=== PATIENT | female | born 1955 | race African-American/Black ===

== ENCOUNTER 2021-03-11 04:43 | Emergency (ER) | payer MEDICAID ==
[~2021-03-11] VITALS: Ht 167.6 cm; Wt 88.5 kg
[2021-03-11] MEDS ORDERED: SODIUM CHLORIDE 0.9% 1,000 ML IV ONE ×2 (07:15)
[2021-03-11] MEDS ORDERED: ONDANSETRON HCL 4 MG/2 ML VIAL IV ONE (07:15)
[2021-03-11 07:33] LABS: Basophils # (auto) 0.1 10 ^3/uL (0-0.2); Basophils % (auto) 1.1 % (0.0-2.0); Eosinophils # (auto) 0 10 ^3/uL (0-0.8); Eosinophils % (auto) 0.5 % (0.0-7.0); Hematocrit 44.8 % (36.0-46.0); Hemoglobin 15.3 g/dL (12.2-16.2); Lymphocytes # (auto) 1.5 10 ^3/uL (0.4-5.4); Lymphocytes % (auto) 20.6 % (10.0-50.0); Mean Corpuscular Hemoglobin 31.8 pg (28.0-32.0); Mean Corpuscular Hgb Conc. 34.1 g/dL (32.0-36.0); Mean Corpuscular Volume 93.2 fL (80.0-100.0); Monocytes # (auto) 0.5 10 ^3/uL (0-1.3); Monocytes % (auto) 6.4 % (0.0-12.0); Neutrophils # (auto) 5.2 10 ^3/uL (1.6-8.6); Neutrophils % (auto) 71.4 % (37.0-80.0); Nucleated Red Blood Cells % 0.2 %; Red Blood Cells 4.81 10^6/uL (4.0-5.20); White Blood Cell 7.3 10^3/uL (4.4-10.8)
[2021-03-11 07:48] LABS: Calcium 9.2 mg/dL (8.5-10.1); Magnesium 2.7 mg/dL (1.6-2.6); Potassium 3.3 mmol/L (3.5-5.1)
[2021-03-11 08:01] LABS: BUN/Creatinine Ratio 23.9; Bilirubin, Total 1.2 mg/dL (0.2-1.0); Total Protein 8.5 g/dL (6.4-8.2)
[2021-03-11] MEDS ORDERED: POTASSIUM EFFERVESENT TAB 25 MEQ PO ONE (10:45)
[2021-03-11 13:34] VITALS: BP 147/89
== END 2021-03-11 13:45 | disposition home or self-care (01) ==
LOC: ER 04:43
DX: K52.9 Noninfective gastroenteritis and colitis, unspecified (principal); E11.9 Type 2 diabetes mellitus without complications; I10 Essential (primary) hypertension; Z20.822 Contact with and (suspected) exposure to COVID-19
CPT/HCPCS: 36415; 71045; 74176; 80053; 83735; 83880; 84484; 85025; 87426; 93005; 96361; 96374; 99285; J2405; J7030

== ENCOUNTER 2021-07-03 02:25 | Emergency (ER) | payer OTHER ==
[~2021-07-03] VITALS: Ht 167.6 cm; Wt 96.2 kg
[2021-07-03 02:50] VITALS: BP 118/60
[2021-07-03] MEDS ORDERED: MECL25TA18 PO (02:53)
[2021-07-03 03:18] LABS: Basophils # (auto) 0 10 ^3/uL (0-0.2); Basophils % (auto) 0.6 % (0.0-2.0); Eosinophils # (auto) 0.3 10 ^3/uL (0-0.8); Eosinophils % (auto) 4.2 % (0.0-7.0); Hematocrit 39.1 % (36.0-46.0); Hemoglobin 13.5 g/dL (12.2-16.2); Lymphocytes # (auto) 2.6 10 ^3/uL (0.4-5.4); Lymphocytes % (auto) 36.5 % (10.0-50.0); Mean Corpuscular Hemoglobin 31.9 pg (28.0-32.0); Mean Corpuscular Hgb Conc. 34.4 g/dL (32.0-36.0); Mean Corpuscular Volume 92.9 fL (80.0-100.0); Monocytes # (auto) 0.7 10 ^3/uL (0-1.3); Monocytes % (auto) 10.5 % (0.0-12.0); Neutrophils # (auto) 3.4 10 ^3/uL (1.6-8.6); Neutrophils % (auto) 48.2 % (37.0-80.0); Nucleated Red Blood Cells % 0.1 %; Red Blood Cells 4.21 10^6/uL (4.0-5.20); Red Cell Distribution Width 13.6 % (11.8-14.3)
[2021-07-03 03:33] LABS: Albumin 3.4 g/dL (3.4-5.0); BUN/Creatinine Ratio 13.5; Potassium 3.6 mmol/L (3.5-5.1)
[2021-07-03 03:36] LABS: Bilirubin, Total 0.4 mg/dL (0.2-1.0); Total Protein 6.6 g/dL (6.4-8.2)
[2021-07-03] MEDS ORDERED: ALUM & MAG HYDROX-SIMETH LIQ(MAALOX) 30 ML PO ONE (04:00)
[2021-07-03] MEDS ORDERED: DONNATAL 5ml ORAL Elix (BELLADONNA ALK-PHENOBARB) PO ONE (04:00)
[2021-07-03] MEDS ORDERED: LIDOCAINE VISCOUS 2% 15ML UD PO ONE (04:00)
== END 2021-07-03 05:43 | disposition home or self-care (01) ==
LOC: ER 02:25
DX: R42 Dizziness and giddiness (principal); K21.9 Gastro-esophageal reflux disease without esophagitis; I10 Essential (primary) hypertension; E11.9 Type 2 diabetes mellitus without complications
CPT/HCPCS: 36415; 70450; 80053; 84484; 85025; 93005

== ENCOUNTER 2021-12-15 19:04 | Inpatient (IN) | payer OTHER ==
[~2021-12-15] VITALS: Ht 167.6 cm; Wt 91.4 kg
[~2021-12-15 19:04] MED LIST: MECL25TA18 PO
[2021-12-15] MEDS ORDERED: DONNATAL 5ml ORAL Elix (BELLADONNA ALK-PHENOBARB) PO ONE (19:15)
[2021-12-15] MEDS ORDERED: ALUM & MAG HYDROX-SIMETH LIQ(MAALOX) 30 ML PO ONE (19:15)
[2021-12-15] MEDS ORDERED: LIDOCAINE VISCOUS 2% 15ML UD PO ONE (19:15)
[2021-12-15] MEDS ORDERED: ONDANSETRON HCL 4 MG/2 ML VIAL IM ONE (19:15)
[2021-12-15] MEDS ORDERED: HYDROmorphone HCL 2 MG/ML VL/or syr IM ONE (19:15)
[2021-12-15] MEDS ORDERED: ONDANSETRON ODT 4 MG TAB PO ONE (19:15)
[2021-12-15 20:01] LABS: Basophils # (auto) 0 10 ^3/uL (0-0.2); Basophils % (auto) 0.5 % (0.0-2.0); Eosinophils # (auto) 0.2 10 ^3/uL (0-0.8); Eosinophils % (auto) 1.9 % (0.0-7.0); Hematocrit 48.8 % (36.0-46.0); Hemoglobin 16.3 g/dL (12.2-16.2); Lymphocytes # (auto) 1.4 10 ^3/uL (0.4-5.4); Lymphocytes % (auto) 15.4 % (10.0-50.0); Mean Corpuscular Hemoglobin 29.9 pg (28.0-32.0); Mean Corpuscular Hgb Conc. 33.4 g/dL (32.0-36.0); Mean Corpuscular Volume 89.8 fL (80.0-100.0); Monocytes # (auto) 0.4 10 ^3/uL (0-1.3); Monocytes % (auto) 4.3 % (0.0-12.0); Neutrophils # (auto) 7.2 10 ^3/uL (1.6-8.6); Neutrophils % (auto) 77.9 % (37.0-80.0); Nucleated Red Blood Cells % 0.2 %; Red Blood Cells 5.44 10^6/uL (4.0-5.20); Red Cell Distribution Width 13.7 % (11.8-14.3); White Blood Cell 9.3 10^3/uL (4.4-10.8)
[2021-12-15 20:14] LABS: Partial Thromboplastin Time 25.3 sec (24.6-33.4)
[2021-12-15 20:27] LABS: Albumin 4.2 g/dL (3.4-5.0); Calcium 9.7 mg/dL (8.5-10.1); Potassium 3.6 mmol/L (3.5-5.1)
[2021-12-15 20:30] LABS: BUN/Creatinine Ratio 19.4; Bilirubin, Total 1.2 mg/dL (0.2-1.0); Total Protein 8.1 g/dL (6.4-8.2)
[2021-12-15] MEDS ORDERED: metroNIDAZOLE 500MG/100ML 100 ML IV ONE (22:00)
[2021-12-15] MEDS ORDERED: levoFLOXacin 500MG 100 ML IV ONE (22:00)
[2021-12-15] MEDS ORDERED: SODIUM CHLORIDE 0.9% 2,700 ML IV ONE (22:00)
[2021-12-15] MEDS ORDERED: MORPHINE SULFATE INJ 2 MG/ml SYRG IV PRN (22:45)
[2021-12-15] MEDS ORDERED: NITROGLYCERIN 0.4 MG SL TAB SL PRN (22:45)
[2021-12-15] MEDS ORDERED: SODIUM CHLORIDE 0.9% 1,000 ML IV ONE (22:45)
[2021-12-15] MEDS ORDERED: ONDANSETRON HCL 4 MG/2 ML VIAL IV PRN (22:45)
[2021-12-16] MEDS ORDERED: GASTROGRAFIN 120 ML SOL ONE (08:09)
[2021-12-16] MEDS: PANTOPRAZOLE 40 MG/10 ML VIAL INJ IV SCH (10:05)
[2021-12-16] MEDS ORDERED: FAMO20TA10 PO (13:57)
[2021-12-16] MEDS ORDERED: PROM25TA5 PO (13:57)
[2021-12-16] MEDS ORDERED: GABA-339 PO (13:57)
[2021-12-16] MEDS ORDERED: TIZA4CAP PO (13:57)
[2021-12-16] MEDS: MORPHINE SULFATE INJ 2 MG/ml SYRG IV PRN (14:14)
[2021-12-16] MEDS ORDERED: NIFE60TA61 (16:45)
[2021-12-16 22:00] VITALS: BP 123/64
[2021-12-17 05:00] VITALS: BP 127/62
[2021-12-17 09:00] VITALS: BP 169/73
[2021-12-17] MEDS: PANTOPRAZOLE 40 MG/10 ML VIAL INJ IV SCH (09:42)
[2021-12-17] MEDS: MORPHINE SULFATE INJ 2 MG/ml SYRG IV PRN (09:43)
[2021-12-17 11:56] LABS: Basophils # (auto) 0.1 10 ^3/uL (0-0.2); Basophils % (auto) 0.7 % (0.0-2.0); Eosinophils # (auto) 0.2 10 ^3/uL (0-0.8); Eosinophils % (auto) 2.7 % (0.0-7.0); Hematocrit 40.6 % (36.0-46.0); Hemoglobin 13.6 g/dL (12.2-16.2); Lymphocytes # (auto) 1.9 10 ^3/uL (0.4-5.4); Lymphocytes % (auto) 27.4 % (10.0-50.0); Mean Corpuscular Hemoglobin 30.7 pg (28.0-32.0); Mean Corpuscular Hgb Conc. 33.5 g/dL (32.0-36.0); Mean Corpuscular Volume 91.7 fL (80.0-100.0); Monocytes # (auto) 0.5 10 ^3/uL (0-1.3); Monocytes % (auto) 7.1 % (0.0-12.0); Neutrophils # (auto) 4.4 10 ^3/uL (1.6-8.6); Neutrophils % (auto) 62.1 % (37.0-80.0); Nucleated Red Blood Cells % 0.1 %; Red Blood Cells 4.43 10^6/uL (4.0-5.20); Red Cell Distribution Width 13.8 % (11.8-14.3); White Blood Cell 7.1 10^3/uL (4.4-10.8)
[2021-12-17 12:04] LABS: Albumin 3.3 g/dL (3.4-5.0); Calcium 8.5 mg/dL (8.5-10.1); Potassium 3.6 mmol/L (3.5-5.1)
[2021-12-17 12:08] LABS: BUN/Creatinine Ratio 38.9; Bilirubin, Total 0.9 mg/dL (0.2-1.0); Total Protein 6.1 g/dL (6.4-8.2)
[2021-12-17 13:00] VITALS: BP 122/71
[2021-12-17] MEDS ORDERED: MECLIZINE HCL 25 MG TAB PO PRN (15:30)
[2021-12-17 17:00] VITALS: BP 143/73
[2021-12-17] MEDS: GABAPENTIN 300 MG CAP PO SCH (21:32)
[2021-12-17] MEDS: TIZANIDINE HYDROCHLORIDE 4 MG PO SCH (21:33)
[2021-12-17] MEDS: PROMETHAZINE HCL 25 MG PO SCH (21:33)
[2021-12-17 22:00] VITALS: BP 125/63
[2021-12-18] VITALS (8 sets, daily range): BP systolic 125–159; BP diastolic 58–87
[2021-12-18] MEDS: GABAPENTIN 300 MG CAP PO SCH ×2 (06:07→13:40)
[2021-12-18] MEDS ORDERED: HYDR-4798 PO (06:13)
[2021-12-18] MEDS: PROMETHAZINE HCL 25 MG PO SCH (10:00)
[2021-12-18] MEDS ORDERED: FAMOTIDINE 20 MG TAB PO SCH (10:00)
[2021-12-18] MEDS: TIZANIDINE HYDROCHLORIDE 4 MG PO SCH (10:00)
[2021-12-18] MEDS ORDERED: NIFEdipine ER 30 MG TAB PO SCH (10:00)
[2021-12-18] MEDS: PANTOPRAZOLE 40 MG/10 ML VIAL INJ IV SCH (10:18)
[2021-12-18] MEDS: MORPHINE SULFATE INJ 2 MG/ml SYRG IV PRN (11:44)
[2021-12-18] MEDS ORDERED: ONDA-144 PO (17:01)
[2021-12-18] MEDS ORDERED: PANT40TA2 PO (17:01)
== END 2021-12-18 19:50 | disposition home or self-care (01) | DRG 390 ==
LOC: EDBD 19:04 → ER 19:10 → TELE 22:48 → TELE-CENTR 12-16 15:05 → CENTRAL 12-17 04:19
PROVIDERS: ADMIT Internal Medicine; ATTEND Internal Medicine
DX: K56.609 Unspecified intestinal obstruction, unspecified as to partial versus complete obstruction (principal); I10 Essential (primary) hypertension; J45.909 Unspecified asthma, uncomplicated; K21.9 Gastro-esophageal reflux disease without esophagitis; E66.9 Obesity, unspecified; F12.90 Cannabis use, unspecified, uncomplicated; Z20.822 Contact with and (suspected) exposure to COVID-19; Z90.710 Acquired absence of both cervix and uterus; Z68.32 Body mass index [BMI] 32.0-32.9, adult
CPT/HCPCS: 36415; 71045; 74176; 74250; 80053; 83036; 83690; 85025; 85610; 85730; 87426; 93005; 96372; C9113; G0378; J1956; J2405; J3490; Q0162

== ENCOUNTER 2023-03-20 11:34 | Inpatient (IN) | payer OTHER ==
[~2023-03-20] VITALS: Ht 167.6 cm; Wt 93.5 kg
[~2023-03-20 11:34] MED LIST changes: +GABA-339 PO; +HYDR-4798 PO; +MECL1TAB32 PO; -MECL25TA18 PO; +NIFE60TA61; +ONDA-144 PO; +PANT40TA2 PO
[2023-03-20] MEDS ORDERED: ALBUTEROL SULF 2.5 MG/0.5ML(0.5%) NEB SOLN NEB ONE (12:00)
[2023-03-20] MEDS ORDERED: IPRATROPIUM BROM 0.5 MG/2.5ML INH SOL NEB ONE (12:00)
[2023-03-20 12:26] LABS: Basophils # (auto) 0 10 ^3/uL (0-0.2); Basophils % (auto) 0.9 % (0.0-2.0); Eosinophils # (auto) 0 10 ^3/uL (0-0.8); Eosinophils % (auto) 0.3 % (0.0-7.0); Hematocrit 48.5 % (36.0-46.0); Hemoglobin 15.8 g/dL (12.2-16.2); Lymphocytes # (auto) 1.1 10 ^3/uL (0.4-5.4); Lymphocytes % (auto) 27.9 % (10.0-50.0); Mean Corpuscular Hemoglobin 30.3 pg (28.0-32.0); Mean Corpuscular Hgb Conc. 32.6 g/dL (32.0-36.0); Mean Corpuscular Volume 92.9 fL (80.0-100.0); Monocytes # (auto) 0.5 10 ^3/uL (0-1.3); Monocytes % (auto) 13.8 % (0.0-12.0); Neutrophils # (auto) 2.2 10 ^3/uL (1.6-8.6); Neutrophils % (auto) 57.1 % (37.0-80.0); Nucleated Red Blood Cells % 0.5 %; Red Blood Cells 5.22 10^6/uL (4.0-5.20); Red Cell Distribution Width 14.6 % (11.8-14.3); White Blood Cell 3.8 10^3/uL (4.4-10.8)
[2023-03-20 12:30] LABS: Base Excess 1.1 mmol/L (-2.0-2.0)
[2023-03-20 12:44] LABS: Prothrombin Time 10.5 sec (9.3-11.8)
[2023-03-20 12:49] LABS: Chloride 108 mmol/L (98-107); Potassium 4.1 mmol/L (3.5-5.1); Sodium 143 mmol/L (136-145)
[2023-03-20 12:50] LABS: Anion Gap 6 (5-15); Calcium 9.1 mg/dL (8.7-10.4); Carbon Dioxide 29 mmol/L (20-30)
[2023-03-20 12:55] LABS: BUN/Creatinine Ratio 13.2 (10.0-20.0); Blood Urea Nitrogen 10 mg/dL (9-23); Glucose 89 mg/dL (74-106)
[2023-03-20 13:32] LABS: COVID19 ANTIGEN SOFIA FIA POSITIVE (NEGATIVE)
[2023-03-20 13:33] LABS: Rapid Influenza A Negative (Negative); Rapid Influenza B Negative (Negative)
[2023-03-20] MEDS ORDERED: ENOXAPARIN SOD 100 MG/1 ML SYRINGE SC ONE (13:45)
[2023-03-20] MEDS ORDERED: IOHEXOL 350 MG/ML 100ML IJ ONE (14:21)
[2023-03-20] MEDS: DexAMETHasone SOD PHOS 10MG/1ML VIAL INJ IV ONE ×2 (15:31→15:40)
[2023-03-20] MEDS ORDERED: MORPHINE SULFATE INJ 2 MG/ml SYRG IV PRN ×2 (17:30)
[2023-03-20] MEDS ORDERED: ACETAMINOPHEN 325 MG TAB PO PRN (17:30)
[2023-03-20] MEDS ORDERED: TEMAZEPAM 15 MG CAP PO PRN (17:30)
[2023-03-20] MEDS ORDERED: HYDROcodone-ACET 5/325MG TAB PO PRN (17:30)
[2023-03-20] MEDS ORDERED: NITROGLYCERIN 0.4 MG SL TAB SL PRN (17:30)
[2023-03-20] MEDS ORDERED: ACCU-CHEK COMFORT CURVE STRIP VI SCH (18:00)
[2023-03-20 19:20] VITALS: BP 109/67; PULSE 67; RESP 20; TEMP 98.8; O2SAT 95
[2023-03-20 20:50] VITALS: BP 118/66; PULSE 80; RESP 18; TEMP 98.4; O2SAT 95
[2023-03-20] MEDS ORDERED: BUDESONIDE (INHALATION) 0.5 MG/2 ML NEB NEB SCH (22:00)
[2023-03-20] MEDS ORDERED: ALBUTEROL SULF HFA 90MCG INH 200DOSE IN SCH (22:00)
[2023-03-20] MEDS ORDERED: BUDESONIDE (INHALATION) 180 MCG IH IN SCH (22:00)
[2023-03-20] MEDS ORDERED: GABAPENTIN 300 MG CAP PO SCH (22:00)
[2023-03-20] MEDS ORDERED: methylPREDNISolone SOD SUCC 40 MG/ML VL IV SCH (22:00)
[2023-03-21] MEDS ORDERED: CHOLECALCIFEROL (VITD3) 2,000 UNIT CAP/TAB PO SCH (10:00)
[2023-03-21] MEDS ORDERED: ASCORBIC ACID 500 MG TAB PO SCH (10:00)
[2023-03-21] MEDS ORDERED: AZITHROMYCIN 500MG/ 250ML 250 ML IV SCH (10:00)
[2023-03-21] MEDS ORDERED: ENOXAPARIN SOD 40 MG/0.4 ML SYRINGE SC SCH (10:00)
== END 2023-03-20 22:07 | disposition left against medical advice (07) | DRG 189 ==
LOC: ER 11:34 → TELE 17:30
PROVIDERS: ADMIT Nurse Practitioner Family; ATTEND Nurse Practitioner Family
DX: J96.01 Acute respiratory failure with hypoxia (principal); J44.1 Chronic obstructive pulmonary disease with (acute) exacerbation; Z20.822 Contact with and (suspected) exposure to COVID-19; I10 Essential (primary) hypertension; Z53.29 Procedure and treatment not carried out because of patient's decision for other reasons; K21.9 Gastro-esophageal reflux disease without esophagitis; Z90.710 Acquired absence of both cervix and uterus
CPT/HCPCS: 36415; 36600; 71045; 71275; 80048; 82805; 83880; 84484; 85025; 85379; 85610; 87426; 87804; 93005; 96374; 99291; G0378; J1100

== ENCOUNTER 2023-03-22 23:48 | Emergency (ER) | payer OTHER ==
[~2023-03-22] VITALS: Ht 167.6 cm; Wt 91.4 kg
[2023-03-23] MEDS ORDERED: methylPREDNISolone SOD SUCC 125 MG/2 ML VL IM ONE (00:15)
[2023-03-23] MEDS ORDERED: KETOROLAC TROMETH 60MG/2ML VIAL IM ONE (00:15)
[2023-03-23] MEDS ORDERED: cefTRIAXone SOD 1,000 MG VL IM ONE (00:15)
[2023-03-23] MEDS ORDERED: HYDROcodone-ACET 10/325MG TAB PO ONE (00:15)
[2023-03-23 00:51] LABS: Hematocrit 45.3 % (36.0-46.0); Hemoglobin 15.5 g/dL (12.2-16.2); Mean Corpuscular Hemoglobin 31.1 pg (28.0-32.0); Mean Corpuscular Hgb Conc. 34.2 g/dL (32.0-36.0); Mean Corpuscular Volume 91.1 fL (80.0-100.0); Red Blood Cells 4.97 10^6/uL (4.0-5.20); Red Cell Distribution Width 14.2 % (11.8-14.3); White Blood Cell 3.9 10^3/uL (4.4-10.8)
[2023-03-23 00:58] LABS: Basophils % (manual) 0 (0.0-2.0); Blast Cells 0; Eosinophils % (manual) 0 (0-7); Metamyelocytes % 0; Promyelocytes % 0; Reactive Lymphocytes 0
[2023-03-23 01:05] LABS: Chloride 108 mmol/L (98-107); Potassium 3.1 mmol/L (3.5-5.1); Sodium 140 mmol/L (136-145)
[2023-03-23 01:07] LABS: Anion Gap 7 (5-15); Calcium 9.2 mg/dL (8.7-10.4); Carbon Dioxide 25 mmol/L (20-30)
[2023-03-23 01:12] LABS: BUN/Creatinine Ratio 13.8 (10.0-20.0); Blood Urea Nitrogen 8 mg/dL (9-23); Glucose 132 mg/dL (74-106)
[2023-03-23 01:15] VITALS: BP 117/64; PULSE 67; RESP 24; TEMP 98.2; O2SAT 94
[2023-03-23] MEDS ORDERED: LEVO500T91 PO (01:18)
[2023-03-23] MEDS ORDERED: PRED20TA2 PO (01:18)
[2023-03-23 01:44] LABS: Urine Epithelial Cast None Seen /hpf (<5)
[2023-03-23 01:55] LABS: Urine Bacteria NONE SEEN /hpf (None Seen); Urine Blood Negative /uL (Negative); Urine Clarity Clear (Clear); Urine Color Yellow (Yellow); Urine Protein, UAD Negative (Negative); Urine Specific Gravity 1.011 (1.001-1.035); Urine WBC 1 /hpf (0 - 5)
[2023-03-23 02:38] LABS: Band Neutrophils % (manual) 2; Giant Platelets Few; Large Platelets FEW; Monocytes % (manual) 19 (0-12); Myelocytes % 1; Platelet Estimate Adequate
[2023-03-23 02:39] LABS: Lymphocytes % (manual) 28 (10.0-50.0)
[2023-03-23] MEDS ORDERED: POTASSIUM EFFERVESENT TAB 25 MEQ PO ONE ×2 (03:15→03:30)
== END 2023-03-23 03:49 | disposition home or self-care (01) ==
LOC: ER 23:48
DX: J40 Bronchitis, not specified as acute or chronic (principal); F17.210 Nicotine dependence, cigarettes, uncomplicated; J44.9 Chronic obstructive pulmonary disease, unspecified; E11.9 Type 2 diabetes mellitus without complications; K21.9 Gastro-esophageal reflux disease without esophagitis; I10 Essential (primary) hypertension; Z90.710 Acquired absence of both cervix and uterus
CPT/HCPCS: 36415; 71045; 80048; 81001; 83880; 85007; 85027; 93005; 96372; 99285; J0696; J1885; J2930

== ENCOUNTER 2023-08-21 08:26 | Inpatient (IN) | payer OTHER ==
[~2023-08-21] VITALS: Ht 170.2 cm; Wt 93.0 kg
[~2023-08-21 08:26] MED LIST changes: +LEVO500T91 PO; +MECL-90 PO; -MECL1TAB32 PO; +PRED20TA2 PO
[2023-08-21] MEDS: IPRATROPIUM BROM 0.5 MG/2.5ML INH SOL HHN ONE (09:18)
[2023-08-21] MEDS: ALBUTEROL SULF 2.5 MG/0.5ML(0.5%) NEB SOLN HHN ONE (09:18)
[2023-08-21] MEDS: methylPREDNISolone SOD SUCC 125 MG/2 ML VL IV ONE (09:35)
[2023-08-21 09:38] VITALS: PULSE 89; RESP 19; O2SAT 95
[2023-08-21 09:54] LABS: Basophils # (auto) 0 10 ^3/uL (0-0.2); Basophils % (auto) 0.7 % (0.0-2.0); Eosinophils # (auto) 0 10 ^3/uL (0-0.8); Eosinophils % (auto) 0.7 % (0.0-7.0); Hematocrit 49.2 % (36.0-46.0); Hemoglobin 16.6 g/dL (12.2-16.2); Lymphocytes # (auto) 1.2 10 ^3/uL (0.4-5.4); Lymphocytes % (auto) 18.3 % (10.0-50.0); Mean Corpuscular Hemoglobin 30.9 pg (28.0-32.0); Mean Corpuscular Hgb Conc. 33.7 g/dL (32.0-36.0); Mean Corpuscular Volume 91.7 fL (80.0-100.0); Monocytes # (auto) 0.8 10 ^3/uL (0-1.3); Monocytes % (auto) 12.6 % (0.0-12.0); Neutrophils # (auto) 4.3 10 ^3/uL (1.6-8.6); Neutrophils % (auto) 67.7 % (37.0-80.0); Nucleated Red Blood Cells % 0.1 %; Red Blood Cells 5.37 10^6/uL (4.0-5.20); Red Cell Distribution Width 14.1 % (11.8-14.3); White Blood Cell 6.4 10^3/uL (4.4-10.8)
[2023-08-21 10:14] LABS: Chloride 107 mmol/L (98-107); Potassium 3.5 mmol/L (3.5-5.1); Sodium 141 mmol/L (136-145)
[2023-08-21 10:15] LABS: Anion Gap 7 (5-15); Carbon Dioxide 27 mmol/L (20-30)
[2023-08-21 10:20] LABS: BUN/Creatinine Ratio 25.7 (10.0-20.0); Blood Urea Nitrogen 18 mg/dL (9-23); Glucose 94 mg/dL (74-106)
[2023-08-21] MEDS ORDERED: DOCUSATE SOD 100 MG CAP PO PRN (11:30)
[2023-08-21] MEDS ORDERED: ACETAMINOPHEN 325 MG TAB PO PRN (11:30)
[2023-08-21] MEDS ORDERED: HYDROcodone-ACET 5/325MG TAB PO PRN (11:30)
[2023-08-21] MEDS ORDERED: ONDANSETRON HCL 4 MG/2 ML VIAL IV PRN (11:30)
[2023-08-21] MEDS ORDERED: MORPHINE SULFATE INJ 2 MG/ml SYRG IV PRN ×2 (11:30)
[2023-08-21] MEDS ORDERED: TEMAZEPAM 15 MG CAP PO PRN (11:30)
[2023-08-21] MEDS ORDERED: NITROGLYCERIN 0.4 MG SL TAB SL PRN (11:30)
[2023-08-21 11:31] LABS: Urine Bacteria FEW /hpf (None Seen); Urine Blood Negative /uL (Negative); Urine Clarity Clear (Clear); Urine Color Yellow (Yellow); Urine Mucus FEW (None Seen); Urine Protein, UAD 1+ (Negative); Urine Specific Gravity 1.041 (1.001-1.035); Urine Urobilinogen Normal (Negative); Urine WBC 2 /hpf (0 - 5)
[2023-08-21 12:17] LABS: COVID19 ANTIGEN SOFIA FIA NEGATIVE (NEGATIVE)
[2023-08-21 13:32] VITALS: BP 154/86; PULSE 89; RESP 20; TEMP 98.4; O2SAT 95
[2023-08-21] MEDS: DOXYCYCLINE 100MG/250ML 250 ML IV SCH (14:27)
[2023-08-21] MEDS: methylPREDNISolone SOD SUCC 125 MG/2 ML VL IV SCH (14:28)
[2023-08-21] MEDS: NIFEdipine ER 30 MG TAB PO SCH (14:31)
[2023-08-21 17:48] VITALS: BP 153/73; PULSE 90; RESP 20; TEMP 97.8; O2SAT 96
[2023-08-21] MEDS: ALBUTEROL SULF 2.5 MG/0.5ML(0.5%) NEB SOLN NEB SCH (18:00)
[2023-08-21 20:00] VITALS: PULSE 87
[2023-08-21 21:00] VITALS: BP 139/72; PULSE 96; RESP 17; TEMP 98.2; O2SAT 94
[2023-08-21] MEDS: GABAPENTIN 300 MG CAP PO SCH (21:20)
[2023-08-21] MEDS: BUDESONIDE (INHALATION) 0.5 MG/2 ML NEB NEB SCH (22:00)
[2023-08-22] VITALS (14 sets, daily range): BP systolic 124–144; BP diastolic 70–89; PULSE 76–101; RESP 16–22; TEMP 98–98.7; O2SAT 92–98
[2023-08-22] MEDS ORDERED: MORPHINE SULFATE INJ 2 MG/ml SYRG IV PRN (00:45)
[2023-08-22] MEDS: HYDROcodone-ACET 5/325MG TAB PO PRN (00:46)
[2023-08-22 05:59] LABS: Basophils # (auto) 0 10 ^3/uL (0-0.2); Basophils % (auto) 0.1 % (0.0-2.0); Eosinophils # (auto) 0 10 ^3/uL (0-0.8); Hematocrit 44.7 % (36.0-46.0); Hemoglobin 15.2 g/dL (12.2-16.2); Lymphocytes % (auto) 16.2 % (10.0-50.0); Mean Corpuscular Hemoglobin 30.9 pg (28.0-32.0); Mean Corpuscular Volume 91.1 fL (80.0-100.0); Monocytes # (auto) 0.7 10 ^3/uL (0-1.3); Monocytes % (auto) 10.8 % (0.0-12.0); Neutrophils # (auto) 4.5 10 ^3/uL (1.6-8.6); Neutrophils % (auto) 72.9 % (37.0-80.0); Nucleated Red Blood Cells % 0.2 %; Red Blood Cells 4.91 10^6/uL (4.0-5.20); Red Cell Distribution Width 14.2 % (11.8-14.3); White Blood Cell 6.2 10^3/uL (4.4-10.8)
[2023-08-22] MEDS: IPRATROPIUM BROM 0.5 MG/2.5ML INH SOL ONE ×2 (06:23→17:50)
[2023-08-22] MEDS: BUDESONIDE (INHALATION) 0.5 MG/2 ML NEB ONE ×2 (06:23→17:55)
[2023-08-22] MEDS: ALBUTEROL SULF 2.5 MG/0.5ML(0.5%) NEB SOLN ONE (06:23)
[2023-08-22 06:33] LABS: Alanine Aminotransferase 10 U/L (7-40); Albumin 4.5 g/dL (3.2-4.8); Alkaline Phosphatase 102 U/L (46-116); Anion Gap 3 (5-15); Aspartate Aminotransferase 11 U/L (13-40); BUN/Creatinine Ratio 29.2 (10.0-20.0); Bilirubin, Total 0.2 mg/dL (0.2-1.0); Blood Urea Nitrogen 19 mg/dL (9-23); Calcium 10.2 mg/dL (8.5-10.1); Carbon Dioxide 30 mmol/L (20-30); Chloride 105 mmol/L (98-107); Glucose 122 mg/dL (74-106); Potassium 3.7 mmol/L (3.5-5.1); Sodium 138 mmol/L (136-145); Total Protein 7.4 g/dL (5.7-8.2)
[2023-08-22] MEDS: ENOXAPARIN SOD 40 MG/0.4 ML SYRINGE SC SCH (10:57)
[2023-08-22] MEDS ORDERED: OXYC1SOL (11:07)
[2023-08-22] MEDS ORDERED: TIZA-142 PO (11:07)
[2023-08-22] MEDS ORDERED: POTA-215 (11:07)
[2023-08-22] MEDS ORDERED: GABA-1250 PO (11:07)
[2023-08-22] MEDS ORDERED: FUR20T PO (11:07)
[2023-08-22] MEDS ORDERED: ALBU108A5 PO (11:07)
[2023-08-22] MEDS ORDERED: ATOR20TA50 PO (11:07)
[2023-08-22] MEDS ORDERED: NIFE1TAB30 (11:46)
[2023-08-22] MEDS ORDERED: FLUT1AER17 INH (11:46)
[2023-08-22] MEDS ORDERED: OMEP-448 (11:46)
[2023-08-22] MEDS ORDERED: DICL1GEL73 TOP (11:46)
[2023-08-22] MEDS: GABAPENTIN 300 MG CAP PO SCH (13:51)
[2023-08-22] MEDS: guaiFENesin-DM 100/10mg/5ml SYR PO PRN (13:53)
[2023-08-22] MEDS: OXYCODONE W/ ACETAMINOPHEN 5/325MG TABLET PO PRN (13:54)
[2023-08-22] MEDS: POTASSIUM CHL 10 Meq TABLET PO ONE (17:52)
[2023-08-22] MEDS: ALBUTEROL SULF 2.5 MG/0.5ML(0.5%) NEB SOLN NEB PRN (17:54)
[2023-08-23] VITALS (14 sets, daily range): BP systolic 114–146; BP diastolic 62–84; PULSE 63–92; RESP 16–20; TEMP 97.8–98.6; O2SAT 92–100
[2023-08-23] MEDS: BUDESONIDE (INHALATION) 0.5 MG/2 ML NEB ONE (07:39)
[2023-08-23] MEDS: SILDENAFIL CITRATE 20 MG TAB PO SCH (21:14)
[2023-08-24] VITALS (12 sets, daily range): BP systolic 124–154; BP diastolic 66–88; PULSE 67–92; RESP 15–20; TEMP 97.7–98.2; O2SAT 94–100
[2023-08-24] MEDS: BUDESONIDE (INHALATION) 0.5 MG/2 ML NEB ONE (09:57)
[2023-08-25] VITALS (11 sets, daily range): BP systolic 132–146; BP diastolic 68–88; PULSE 62–97; RESP 16–20; TEMP 97.8–98.8; O2SAT 92–98
[2023-08-25] MEDS: BUDESONIDE (INHALATION) 0.5 MG/2 ML NEB ONE (08:13)
[2023-08-25] MEDS: GABAPENTIN 300 MG CAP PO SCH (13:44)
[2023-08-26] VITALS (11 sets, daily range): BP systolic 108–143; BP diastolic 59–86; PULSE 56–90; RESP 15–20; TEMP 97.7–98.3; O2SAT 92–100
[2023-08-26] MEDS: BUDESONIDE (INHALATION) 0.5 MG/2 ML NEB ONE ×2 (07:54→10:06)
[2023-08-26] MEDS ORDERED: BUDESONIDE (INHALATION) 0.5 MG/2 ML NEB ONE (21:40)
[2023-08-27] VITALS (14 sets, daily range): BP systolic 101–128; BP diastolic 60–81; PULSE 46–72; RESP 16–20; TEMP 97.7–98.1; O2SAT 93–100
[2023-08-27] MEDS: BUDESONIDE (INHALATION) 0.5 MG/2 ML NEB ONE (10:21)
[2023-08-27 17:23] LABS: Base Excess 2.7 mmol/L (-2.0-2.0)
[2023-08-28] VITALS (11 sets, daily range): BP systolic 116–129; BP diastolic 52–68; PULSE 46–99; RESP 15–20; TEMP 97.4–98.7; O2SAT 93–100
[2023-08-28] MEDS: BUDESONIDE (INHALATION) 0.5 MG/2 ML NEB ONE (07:59)
[2023-08-28] MEDS: ACETAMINOPHEN 325 MG TAB PO PRN (11:18)
== END 2023-08-28 17:50 | DRG 189 ==
LOC: ER 08:26 → TELE 11:21 → ER 11:21 → TELE-CENTR 17:58
PROVIDERS: ADMIT Nurse Practitioner; ATTEND Nurse Practitioner
DX: J96.01 Acute respiratory failure with hypoxia (principal); J44.1 Chronic obstructive pulmonary disease with (acute) exacerbation; I27.20 Pulmonary hypertension, unspecified; E11.9 Type 2 diabetes mellitus without complications; E66.01 Morbid (severe) obesity due to excess calories; E78.5 Hyperlipidemia, unspecified; Z20.822 Contact with and (suspected) exposure to COVID-19; F17.210 Nicotine dependence, cigarettes, uncomplicated; I10 Essential (primary) hypertension; K21.9 Gastro-esophageal reflux disease without esophagitis; F12.90 Cannabis use, unspecified, uncomplicated; Z96.652 Presence of left artificial knee joint; Z68.32 Body mass index [BMI] 32.0-32.9, adult; Z90.710 Acquired absence of both cervix and uterus; Z83.3 Family history of diabetes mellitus; Z82.49 Family history of ischemic heart disease and other diseases of the circulatory system; Z80.9 Family history of malignant neoplasm, unspecified; Z79.899 Other long term (current) drug therapy
CPT/HCPCS: 36415; 36600; 71045; 80048; 80053; 81001; 82805; 83605; 83735; 83880; 84484; 85025; 87040; 87426; 93005; 93306; 94640; 94644; 97110; 97116; 97163; 97530; 99291; G0378; J3490

== ENCOUNTER 2024-02-26 06:58 | Inpatient (IN) | payer OTHER, MEDICAID ==
[~2024-02-26] VITALS: Ht 167.6 cm; Wt 91.6 kg
[~2024-02-26 06:58] MED LIST changes: +ALBU108A5 PO; +ATOR20TA50 PO; +DICL1GEL73 TOP; +FLUT1AER17 INH; +FURO20TA4 PO; +GABA-1250 PO; -GABA-339 PO; -HYDR-4798 PO; -LEVO500T91 PO; +NIFE1TAB30; -NIFE60TA61; +OMEP-448; +OXYC1SOL; +POTA-215; -PRED20TA2 PO; +TIZA-142 PO
--- NOTE | 2024-02-26 07:29 | ED.PDOC ---
SOB-HPI HPI Comments 69 y.o female with PMH of COPD, asthma, DM, HTN, HDL, and GERD, presents to the ED for a chief complaint of SOB associated with a cough that started 2 days ago. Patient reports using 1.5 liters of oxygen at home via [place], has no relief and worsens with laying flat. Patient denies any fever, chills, nausea, vomiting. Patient presents to the ED hypertensive and SVT rhythm. 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 Pertinent AUTOMATIC GRINDING MACHINE OPERATOR History Family History Family History: Family hx of DM, Family hx of Cancer, Family hx of heart luz Social History Smoker: Cigarettes Alcohol: Occasionally Drugs: Marijuana Lives In: Home Constitutional: denies: chills, diaphoresis, fatigue, fever, malaise, sweats, weakness, others EENTM: denies: blurred vision, double vision, ear bleeding, ear discharge, ear drainage, ear pain, ear ringing, eye pain, eye redness, hearing loss, mouth pain, mouth swelling, nasal discharge, nose bleeding, nose congestion, nose pain, photophobia, tearing, throat pain, throat swelling, voice changes, others Respiratory: reports: cough, SOB at rest, shortness of breath; denies: hemoptysis, orthopnea, SOB with excertion, stridor, wheezing, others Cardiovascular: denies: chest pain, dizzy spells, diaphoresis, Dyspnea on exertion, edema, irregular heart beat, left arm pain, lightheadedness, palpitations, PND, syncope, others Gastrointestinal: denies: abdomen distended, abdominal pain, blood streaked bowels, constipated, diarrhea, dysphagia, difficulty swallowing, hematemesis, melena, nausea, poor appetite, poor fluid intake, rectal bleeding, rectal pain, vomiting, others Genitourinary: denies: abnormal vagina bleeding, burning, dyspareunia, dysuria, flank pain, frequency, hematuria, incontinence, pain, , vagina discharge, urgency, others Neurological: denies: dizziness, fainting, headache, left sided numbness, left sided weakness, numbness, paresthesia, pre-existing deficit, right sided numbness, right sided weakness, seizure, speech problems, tingling, tremors, wea kness, others Musculoskeletal: denies: back pain, gout, joint pain, joint swelling, muscle pain, muscle stiffness, neck pain, others Integumetry: denies: bruises, change in color, change in hair/nails, dryness, l aceration, lesions, lumps, rash, wounds, others Allergic/Immunocompromised: denies: Difficulty Healing, Frequent Infections, Hives, Itching, others Hematologic/Lymphatic: denies: anemia, blood clots, easy bleeding, easy bruising, swollen glands, others Endocrine: denies: excessive hunger, excessive sweating, excessive thirst, excessive urination, flushing, intolerance to cold, intolerance to heat, unexplained weight gain, unexplained weight loss, others Psychiatric: denies: anxiety, bipolar disorder, depression, hopeless, panic disorder, schizophrenia, sleepless, suicidal, others All Other Systems: Reviewed and Negative Physical Exam General Appearance: No Apparent Distress, Normal HEENT: Normal ENT Inspection, Pharynx Normal, TMs Normal Neck: Full Range of Motion, Non-Tender, Normal, Normal Inspection Respiratory: Other (right lung sounds tiger) Cardiovascular: No Edema, No JVD, No Murmur, No Gallop, Normal Peripheral Pulses, Regular Rate/Rhythm Breast Exam: Deferred Gastrointestinal: No Organomegaly, Non Tender, No Pulsatile Mass, Normal Bowel Sounds, Soft Genitalia: Deferred Pelvic: Deferred Rectal: Deferred Extremities: No calf tenderness, Normal capillary refill, Normal inspection, Normal range of motion, Non-tender, No pedal edema Musculoskeletal : Apperance: Normal Neurologic: Alert, compound machine operator II-XII nml as Tested, No Motor Deficits, Normal Affect, Normal Mood, No Sensory Deficits Cerebellar Function: Normal Reflexes: Normal Skin: Dry, Normal Color, Warm Lymphatic: No Adenopathy Was a procedure done? Was a procedure done?: Yes Sedation Sedation?: No Chest Tube Indication: Pneumothorax Procedure: Sterile preparation, Chest Tube Size Anesthetic: Lidocaine Site: R 5th intercostal space Drainage: Air Informed consent obtained: Yes Risks/benefits/alt described: Yes Differential Dx Differential Diagnosis: Asthma, Bronchitis, CHF, COPD, Pneumonia, URI X-Ray, Labs, Meds, VS Vital Signs Date Time Temp Pulse Resp B/P (MAP) Pulse Ox O2 Delivery O2 Flow Rate FiO2 02/26/24 12:08 139/99 02/26/24 10:00 113 25 176/144 02/26/24 09:30 122 25 150/100 02/26/24 09:15 107 25 91 Nasal Cannula* 5 40 02/26/24 09:00 111 25 175/102 (126) 91 02/26/24 08:45 107 25 176/110 (132) 91 02/26/24 08:30 102 25 179/104 (129) 93 02/26/24 08:15 105 25 172/104 (126) 93 02/26/24 08:00 98.4 101 25 178/114 (135) 93 98.4 02/26/24 07:40 105 02/26/24 07:26 191 02/26/24 07:15 97.9 196 24 144/102 (116) 91 149/118 (128) Lab Test 02/26/24 10:09 02/26/24 09:19 02/26/24 07:54 02/26/24 07:36 Range/Units Urine Color Light-yellow Yellow Urine Clarity Clear Clear Urine pH 6.5 5.0-9.0 Urine Specific [place] 1.007 1.001-1.035 Urine Protein Negative Negative Urine Ketones Negative Negative Urine Blood Negative Negative /uL Urine Nitrite Negative Negative Urine Bilirubin Negative Negative Urine Urobilinogen Normal Negative mg/dL Urine Leukocyte Esterase Negative Negative /uL Urine RBC 1 0 - 4 /hpf Urine WBC <1 0 - 5 /hpf Urine Squamous Epithelial Cells Few <5 /hpf Urine Bacteria Few H None Seen /hpf Urine Glucose Normal Normal mg/dL Troponin I High Sensitivity 3 L < 3 L </=34 ng/L POC Glucose 137 H 70-106 mg/dl White Blood Count 5.6 4.4-10.8 10^3/uL Red Blood Count 5.45 H 4.0-5.20 10^6/uL Hemoglobin 16.4 H 12.2-16.2 g/dL Hematocrit 50.0 H 36.0-46.0 % Mean Corpuscular Volume 91.6 80.0-100.0 fL Mean Corpuscular Hemoglobin 30.1 28.0-32.0 pg Mean Corpuscular Hemoglobin Concent 32.9 32.0-36.0 g/dL Red Cell Distribution Width 15.4 H 11.8-14.3 % Platelet Count 198 140-450 10^3/uL Mean Platelet Volume 9.0 6.9-10.8 fL Neutrophils (%) (Auto) 58.7 37.0-80.0 % Lymphocytes (%) (Auto) 19.3 10.0-50.0 % Monocytes (%) (Auto) 12.6 H 0.0-12.0 % Eosinophils (%) (Auto) 5.2 0.0-7.0 % Basophils (%) (Auto) 4.2 H 0.0-2.0 % Neutrophils # (Auto) 3.3 1.6-8.6 10 ^3/uL Lymphocytes # (Auto) 1.1 0.4-5.4 10 ^3/uL Monocytes # (Auto) 0.7 0-1.3 10 ^3/uL Eosinophils # (Auto) 0.3 0-0.8 10 ^3/uL Basophils # (Auto) 0.2 0-0.2 10 ^3/uL Nucleated Red Blood Cells 0.2 % Prothrombin Time 10.6 9.3-11.8 sec Prothrombin Time INR 1.00 0.9-1.15 Activated Partial Thromboplast Time 27.3 24.5-34.5 SEC D-Dimer, Quantitative 0.53 H 0.0-0.49 mg/L FEU Sodium Level 141 136-145 mmol/L Potassium Level 4.0 3.5-5.1 mmol/L Chloride Level 107 98-107 mmol/L Carbon Dioxide Level 27 20-31 mmol/L Anion Gap 7 5-15 Blood Urea Nitrogen 9 9-23 mg/dL Creatinine 0.68 0.550-1.02 mg/dL Glomerular Filtration Rate Calc 93 >90 mL/min BUN/Creatinine Ratio 13.2 10.0-20.0 Serum Glucose 130 H 74-106 mg/dL Calcium Level 10.5 H 8.7-10.4 mg/dL Total Bilirubin 0.7 0.2-1.0 mg/dL Aspartate Amino Transferase (AST) 26 13-40 U/L Alanine Aminotransferase (ALT) 19 7-40 U/L Alkaline Phosphatase 127 H 46-116 U/L B-Type Natriuretic Peptide 12.74 0-100 pg/mL Total Protein 7.9 5.7-8.2 g/dL Albumin 4.8 3.2-4.8 g/dL Current Medications Medications (Trade) Dose Ordered Sig/Kourtney Route Start Time Stop Time Status Last Admin Nifedipine (Procardia Xl (Time-Release)) 60 mg ONCE ONCE PO 02/26/24 08:15 02/26/24 08:16 DC 02/26/24 12:08 Acetaminophen/ Hydrocodone Bitart ([place] 10/325MG Tab) 1 tab ONCE ONCE PO 02/26/24 08:15 02/26/24 08:16 DC 02/26/24 12:08 Ondansetron HCl (Zofran) 4 mg ONCE ONCE IV 02/26/24 09:30 02/26/24 09:31 DC 02/26/24 09:30 Morphine Sulfate 4 mg ONCE ONCE IV 02/26/24 09:30 02/26/24 09:31 DC 02/26/24 09:30 Lorazepam (Ativan Inj) 2 mg ONCE ONCE IV 02/26/24 11:15 02/26/24 11:16 DC 02/26/24 11:15 X-Ray, Labs, Meds, VS Comment This 69-year-old female presents secondary to shortness of breath. She was found to have a greater than 30% pneumothorax on the right side. Chest tube was placed. The patient workup otherwise benign. However, secondary to her chest tube and pneumothorax, she will be admitted for further workup and management. She denies having a history of hemothorax he has. Time of 1ST Reevaluation: 07:21 Reevaluation 1ST: Unchanged Patient Education/Counseling: Diagnosis, Treatment, Prognosis Family Education/Counseling: No Family Present Additional Information I reviewed the following notes from patient's past medical encounters: 08/21/23- COPD exacerbation The following tests were ordered, and results were reviewed by me: LAB, CXR, EKG I reviewed and agreed with the following test results read by other providers: CXR I discussed treatment and results with medical personnel and patient [address] [address] Ph: [phone] DIAGNOSTIC IMAGING Diagnostic Imaging Report : [id number] Signed with Tye PATIENT: TENA DEVINE ACCT: [id number] UNIT: [id number] : 1955 LOC: ER ROOM / BED: / AGE / SEX: 69 / F ADM STATUS: REG ER SERVICE ORDERING PHYSICIAN: PHUONG AGUILA MD PROCEDURE(s): CXRP - CHEST PORTABLE REASON: cough ORDER NUMBER(s): [id number], ACCESSION NUMBER(s): [id number] ADDENDUM ADDENDUM # 1 Critical result: Pneumothorax Findings discussed with Dr. Aguila on 02/26/2024 at 10:10 a.m. CHIEF PHARMACIST, with acknowledged receipt and understanding of the findings. ORIGINAL REPORT CHEST RADIOGRAPH Indication: cough Technique: Single frontal view of the chest was obtained Comparison: XY CHEST PORTABLE on DOS: 08/24/23 FINDINGS: Lines and Tubes: None Lungs: Right basilar opacity. Pleura: No effusion. Moderate pneumothorax. Cardiomediastinal contours: Unremarkable. No midline shift. Bones: No acute osseous abnormality. IMPRESSION: 1. Moderate pneumothorax. 2. Right basilar opacity may reflect atelectasis. ATED BY: KYLER SMITH MD DICTATED DATE/TIME: 02/26/24850 SIGNED BY: KYLER SMITH MD SIGNED DATE/TIME: 02/26/24850 CC: CHEST RADIOGRAPH Indication: cough Technique: Single frontal view of the chest was obtained Comparison: XY CHEST PORTABLE on DOS: 08/24/23 FINDINGS: Lines and Tubes: None Lungs: Right basilar opacity. Pleura: No effusion. Moderate pneumothorax. Cardiomediastinal contours: Unremarkable. No midline shift. Bones: No acute osseous abnormality. IMPRESSION: 1. Moderate pneumothorax. 2. Right basilar opacity may reflect atelectasis. ATED BY: KYLER SMITH MD DICTATED DATE/TIME: 02/26/24804 SIGNED BY: KYLER SMITH MD SIGNED DATE/TIME: 02/26/24804 CC: Departure 1 Departure Time of Disposition: 12:21 Impression: Primary Impression: Hypoxia Additional Impressions: Dyspnea Pneumothorax Disposition: ADMITTED INPATIENT Admit to: Tele Condition: Serious Critical Care Note Critical Care Time?: Yes (45 min-critical care time only) Critical care comment: This 69-year-old female was noted to be in SVT with rates in the 190s. The patient was transferred emergently to a bed, placed on pads, placed on a monitor, when we went to complete cardioverted the patient, the patient has spontaneously converted to sinus tach in the low 100s. Stability Stability form required: No I personally scribed for PHUONG AGUILA MD ([email or web address]) on 02/26/24 at 07:29. Electronically submitted by Florence Lucas (MCLAREN FLINT). I personally scribed for PHUONG AGUILA MD ([email or web address]) on 02/26/24 at 10:42. Electronically submitted by Florence Lucas (MCLAREN FLINT). I personally scribed for PHUONG AGUILA MD ([email or web address]) on 02/26/24 at 11:41. Electronically submitted by Florence Lucas (MCLAREN FLINT). PHUONG AGUILA MD Feb 26, 2024 07:29
[2024-02-26] MEDS: dilTIAZem 25 MG/5 ML VIAL IV ONE (07:30)
[2024-02-26] MEDS: ADENOSINE 6 MG/2 ML INJ IV ONE ×2 (07:43)
[2024-02-26 08:01] LABS: Basophils # (auto) 0.2 10 ^3/uL (0-0.2); Basophils % (auto) 4.2 % (0.0-2.0); Eosinophils # (auto) 0.3 10 ^3/uL (0-0.8); Eosinophils % (auto) 5.2 % (0.0-7.0); Hemoglobin 16.4 g/dL (12.2-16.2); Lymphocytes # (auto) 1.1 10 ^3/uL (0.4-5.4); Lymphocytes % (auto) 19.3 % (10.0-50.0); Mean Corpuscular Hemoglobin 30.1 pg (28.0-32.0); Mean Corpuscular Hgb Conc. 32.9 g/dL (32.0-36.0); Mean Corpuscular Volume 91.6 fL (80.0-100.0); Monocytes # (auto) 0.7 10 ^3/uL (0-1.3); Monocytes % (auto) 12.6 % (0.0-12.0); Neutrophils # (auto) 3.3 10 ^3/uL (1.6-8.6); Neutrophils % (auto) 58.7 % (37.0-80.0); Nucleated Red Blood Cells % 0.2 %; Platelet Count (auto) 198 10^3/uL (140-450); Red Blood Cells 5.45 10^6/uL (4.0-5.20); Red Cell Distribution Width 15.4 % (11.8-14.3); White Blood Cell 5.6 10^3/uL (4.4-10.8)
--- NOTE | 2024-02-26 08:08 | DVH ---
CHEST RADIOGRAPH Indication: cough Technique: Single frontal view of the chest was obtained Comparison: XY CHEST PORTABLE on DOS: 08/24/23 FINDINGS: Lines and Tubes: None Lungs: Right basilar opacity. Pleura: No effusion. Moderate pneumothorax. Cardiomediastinal contours: Unremarkable. No midline shift. Bones: No acute osseous abnormality. IMPRESSION: 1. Moderate pneumothorax. 2. Right basilar opacity may reflect atelectasis.
[2024-02-26 08:23] LABS: Alanine Aminotransferase 19 U/L (7-40); Anion Gap 7 (5-15); Aspartate Aminotransferase 26 U/L (13-40); BUN/Creatinine Ratio 13.2 (10.0-20.0); Bilirubin, Total 0.7 mg/dL (0.2-1.0); Blood Urea Nitrogen 9 mg/dL (9-23); Carbon Dioxide 27 mmol/L (20-31); Chloride 107 mmol/L (98-107); Sodium 141 mmol/L (136-145); Total Protein 7.9 g/dL (5.7-8.2)
[2024-02-26 08:24] LABS: Albumin 4.8 g/dL (3.2-4.8); Alkaline Phosphatase 127 U/L (46-116); Calcium 10.5 mg/dL (8.7-10.4); Glucose 130 mg/dL (74-106)
[2024-02-26 08:29] LABS: Partial Thromboplastin Time 27.3 SEC (24.5-34.5); Prothrombin Time 10.6 sec (9.3-11.8)
[2024-02-26 09:15] VITALS: PULSE 107; RESP 25; O2SAT 91
[2024-02-26] MEDS: MORPHINE SULFATE 4 MG/ML SYR/VIAL IV ONE (09:30)
[2024-02-26] MEDS: ONDANSETRON HCL 4 MG/2 ML VIAL IV ONE ×2 (09:30→15:27)
[2024-02-26 10:43] LABS: Urine Bacteria FEW /hpf (None Seen); Urine Blood Negative /uL (Negative); Urine Clarity Clear (Clear); Urine Color Light-Yellow (Yellow); Urine Protein, UAD Negative (Negative); Urine Specific Gravity 1.007 (1.001-1.035); Urine Squamous Epithelial Cell FEW /hpf (<5); Urine Urobilinogen Normal (Negative); Urine WBC <1 /hpf (0 - 5); Urine pH 6.5 (5.0-9.0)
[2024-02-26] MEDS: LORazepam 2MG/ML-1ML VIAL IV ONE ×2 (11:15→15:26)
[2024-02-26] MEDS: LORazepam 2MG/ML-1ML VIAL ONE (11:16)
[2024-02-26] MEDS: LIDOCAINE W/ EPINEPHRINE 2% INJ 20ML VIAL ONE (11:16)
[2024-02-26] MEDS: LIDOCAINE W/ EPINEPHRINE 2% INJ 20ML VIAL IJ ONE ×2 (11:33→11:44)
--- NOTE | 2024-02-26 12:02 | DVH ---
EXAM: XY CHEST XRAY 1 VIEW Indication: chest tube placement Technique: Single frontal view of the chest was obtained Comparison: XY CHEST PORTABLE on DOS: 02/26/24, XY CHEST PORTABLE on DOS: 08/24/23, XY CHEST PORTABLE on DOS: 08/21/23, XY CHEST PORTABLE on DOS: 03/23/23, XY CHEST XRAY 1 VIEW on DOS: 03/20/23 FINDINGS: Lines and Tubes: Right chest tube is visualized. Interval decrease in right pneumothorax. Lungs: No focal consolidation. Pleura: No effusion. No pneumothorax. Cardiomediastinal contours: Unremarkable Bones: No acute osseous abnormality. IMPRESSION: Right chest tube is visualized. Interval decrease in right pneumothorax.
[2024-02-26] MEDS: HYDROcodone-ACET 10/325MG TAB PO ONE (12:08)
[2024-02-26] MEDS: NIFEdipine ER 30 MG TAB PO ONE (12:08)
--- NOTE | 2024-02-26 14:27 | ECG ---
[facility] Test Date: 2024-02-26 Test Time: 07:26:43 Pat Name: TENA DEVINE Department: ER Room: Gender: F Tap Puller: TYSON : 1955 Requested By: PHUONG BOWERS Order Number: [id number] Reading MD: Davon Marrero Measurements Intervals [place] Rate: 191 P: 0 WI: 146 QRS: -53 QRSD: 81 T: 105 QT: 267 QTc: 476 Interpretive Statements Supraventricular tachycardia LAD, consider left anterior fascicular block Repolarization abnormality, prob rate related Electronically Signed On 02-26-2024 15:44:59 PST by Davon Marrero Please click the below link to view image of tracing.
[2024-02-26] MEDS: KETOROLAC TROMETH 30 MG/ML 1ML VIAL IV ONE (15:26)
--- NOTE | 2024-02-26 17:13 | DVHHP2 ---
Admitting Diagnosis: Shortness of breath History of Present Illness 69 yo female patient with hx of COPD, HTN, DM, HLD, GERD, and asthma c/o SOB and cough x 2 days. Patient sts that her SOB worsens when in supine. Patient reports using 1.5L of O2 at home. While in the emergency department the patient was evaluated by the provider, As per provider: Labs, vital signs, and imagining monitored. Patient will be admitted for further evaluation and treatment. I discussed admission with the patient/family and is in agreement to treatment plan. Patient Family History: FH: cancer G8 MOTHER FH: myocardial infarction G8 FATHER Hypertension G8 MOTHER G8 FATHER Allergies: Coded Allergies: NO KNOWN ALLERGIES (Unverified , 12/06/11) Home Meds Active Scripts Pantoprazole Sodium Sesquihydr (Protonix) 40 Mg Tab, 40 MG PO DAILY, #30 TAB Prov:DALJIT JIM NP 12/18/21 Ondansetron (Zofran) 4 Mg Tab, 1 TAB PO Q6HR, #20 TAB Prov:DALJIT JIM NP 12/18/21 Meclizine Hcl (Meclizine Hcl) 25 Mg Tab, 25 MG PO BIDP PRN for 7 Days, #14 MG Prov:ARUN LEES MD 07/03/21 Reported Medications Diclofenac Sodium (Topical) (Diclofenac Sodium) 1 % Gel, 2 GM TOP TID PRN for PAIN SCALE 1 THRU 6 08/22/23 Nifedipine (Nifedipine Er) 60 Mg Tab 08/22/23 Omeprazole (Omeprazole Dr) 40 Mg Cap 08/22/23 Gaxhqclbbwq-Hnoaxalssygl-Ruqux (Trelegy Ellipta 200-62.5-25 Mcg/INH) 1 Aer Aer, 1 PUFF INH DAILY 08/22/23 Atorvastatin Calcium (ATORVASTATIN CALCIUM) 20 Mg Tab, 1 TAB PO DAILY 08/22/23 Albuterol Sulfate (Albuterol Sulfate Hfa) 108 Mcg/Act Aer, 1-2 PUFF PO PRN for wheezing 08/22/23 Oxycodone W/ Acetaminophen (Oxycodone Hydrochloride/A 10-300 mg/5Ml) 1 Flora Flora 08/22/23 Gabapentin (Gabapentin) 300 Mg Cap, 3 PO TID 08/22/23 Furosemide (Furosemide) 20 Mg Tab, 1 TAB PO DAILY 08/22/23 Potassium Chloride (Klor-Con M10) 10 Meq Tab 08/22/23 Tizanidine Hydrochloride (Tizanidine Hcl) 4 Mg Tab, 1 TAB PO Q8HPRN PRN for FOR MUSCLE SPASM 08/22/23 Current Medications Current Medications Medications (Trade) Dose Ordered Sig/Kourtney Route PRN Reason Start Time Stop Time Status Last Admin Enoxaparin Sodium (Lovenox) 40 mg DAILY SC 02/27/24 10:00 02/27/24 10:03 Albuterol (Ventolin Medneb) 2.5 mg Q6HPRN PRN NEB SHORTNESS OF BREATH 02/26/24 20:00 02/27/24 12:43 DC 02/27/24 09:16 Ipratropium [place] (Atrovent Medneb) 0.5 mg Q6HPRN PRN NEB SHORTNESS OF BREATH 02/26/24 20:00 02/27/24 12:43 DC 02/27/24 09:16 Albuterol (Ventolin Medneb) 2.5 mg Q6HR NEB 02/27/24 12:45 02/27/24 18:28 Ipratropium [place] (Atrovent Medneb) 0.5 mg Q6HR NEB 02/27/24 12:45 02/27/24 18:28 Methylprednisolone Sodium Succinate (Solu Medrol) 40 mg Q8HR IV 02/27/24 14:00 02/27/24 14:28 Azithromycin 250 ml @ 125 mls/hr DAILY IV 02/28/24 10:00 02/27/24 14:26 DC Atorvastatin Calcium (Lipitor) 20 mg HS PO 02/28/24 22:00 Furosemide (Lasix Tablet) 20 mg DAILY PO 02/28/24 10:00 Gabapentin (Neurontin Capsule) 300 mg TID PO 02/27/24 14:00 02/27/24 14:28 Pantoprazole Sodium (Protonix Tablet) 40 mg DAILY@0600 PO 02/28/24 06:00 Metoprolol Tartrate (Lopressor Tablet) 25 mg BID PO 02/27/24 13:45 02/27/24 14:28 Azithromycin (Zithromax Tablet) 500 mg DAILY PO 02/28/24 10:00 03/02/24 09:59 Review of Systems Constitutional: denies chills, denies fever, denies malaise Eyes: denies eye pain, denies vision change ENT: denies ear pain, denies headache, denies nasal congestion, denies painful swallowing, denies voice change Cardiovascular: denies chest pain, denies edema, denies orthopnea, denies palpitations, denies paroxysmal nocturnal dyspnea Respiratory: denies cough, denies shortness of breath Gastrointestinal: denies constipation, denies diarrhea, denies nausea, denies vomiting Genitourinary: denies dysuria, denies frequent urination, denies urethral discharge Musculoskeletal: denies back pain, denies joint pain, denies muscle pain Skin: denies bruising, denies itching, denies rash Neurological: denies focal weakness, denies headache, denies sensory changes Psychiatric: denies anxiety, denies depression Endocrine: denies polydipsia, denies polyuria Hematologic/Lymphatic: denies easy bleeding, denies easy bruising, denies enlarged lymph nodes Allergic/Immunologic: denies allergy, denies hives Vital Signs Vital Signs Date Time Temp Pulse Resp B/P (MAP) Pulse Ox O2 Delivery O2 Flow Rate FiO2 02/27/24 18:43 94 18 99 02/27/24 17:00 98.1 119/75 (90) 98.1 02/27/24 15:03 Nasal Cannula* 3 32 Physical Exam General Appearance: alert, no distress HEENT: EOMI, PERRLA, normal external inspect of ears, no icterus, no nasal drainage Neck: no carotid bruit, no jugular venous distention (JVD), no lymphadenopathy Chest: normal thorax Respiratory: clear to auscultation, normal air movement Cardiovascular: regular rate and rhythm, no diastolic murmur, no jugular venous distention (JVD), no rub, no systolic murmur Abdominal: soft, no hepatomegaly, no mass, no splenomegaly, no tenderness Genitourinary: grossly normal external Musculoskeletal: no joint tenderness, no swelling Extremities: normal pulses, no calf tenderness, no clubbing, no cyanosis, no edema Skin: no bruising, no jaundice, no rash Neurological: alert, No focal deficit Results Labs Test 02/27/24 08:50 02/26/24 10:09 02/26/24 09:19 02/26/24 07:54 Range/Units White Blood Count 5.8 4.4-10.8 10^3/uL Red Blood Count 5.15 4.0-5.20 10^6/uL Hemoglobin 15.5 12.2-16.2 g/dL Hematocrit 46.6 H 36.0-46.0 % Mean Corpuscular Volume 90.4 80.0-100.0 fL Mean Corpuscular Hemoglobin 30.1 28.0-32.0 pg Mean Corpuscular Hemoglobin Concent 33.3 32.0-36.0 g/dL Red Cell Distribution Width 15.6 H 11.8-14.3 % Platelet Count 159 140-450 10^3/uL Mean Platelet Volume 9.2 6.9-10.8 fL Neutrophils (%) (Auto) 66.4 37.0-80.0 % Lymphocytes (%) (Auto) 14.8 10.0-50.0 % Monocytes (%) (Auto) 16.3 H 0.0-12.0 % Eosinophils (%) (Auto) 1.9 0.0-7.0 % Basophils (%) (Auto) 0.6 0.0-2.0 % Neutrophils # (Auto) 3.8 1.6-8.6 10 ^3/uL Lymphocytes # (Auto) 0.9 0.4-5.4 10 ^3/uL Monocytes # (Auto) 0.9 0-1.3 10 ^3/uL Eosinophils # (Auto) 0.1 0-0.8 10 ^3/uL Basophils # (Auto) 0 0-0.2 10 ^3/uL Nucleated Red Blood Cells 0.2 % Sodium Level 141 136-145 mmol/L Potassium Level 4.4 3.5-5.1 mmol/L Chloride Level 109 H 98-107 mmol/L Carbon Dioxide Level 26 20-31 mmol/L Anion Gap 6 5-15 Blood Urea Nitrogen 18 9-23 mg/dL Creatinine 0.79 0.550-1.02 mg/dL Glomerular Filtration Rate Calc 80 >90 mL/min BUN/Creatinine Ratio 22.8 H 10.0-20.0 Serum Glucose 167 H 74-106 mg/dL Hemoglobin A1c 6.8 H <5.7 % A1C Calcium Level 10.0 8.7-10.4 mg/dL Magnesium Level 2.0 1.6-2.6 mg/dL Total Bilirubin 0.8 0.2-1.0 mg/dL Aspartate Amino Transferase (AST) 22 13-40 U/L Alanine Aminotransferase (ALT) 11 7-40 U/L Alkaline Phosphatase 108 46-116 U/L Total Protein 7.0 5.7-8.2 g/dL Albumin 4.3 3.2-4.8 g/dL Triglycerides Level 89 < 150 mg/dL Cholesterol Level 211 H < 200 mg/dL LDL Cholesterol 145 H < 100 mg/dL HDL Cholesterol 52 40-59 mg/dL Thyroid Stimulating Hormone (TSH) 0.49 L 0.55-4.78 uIU/mL Urine Color Light-yellow Yellow Urine Clarity Clear Clear Urine pH 6.5 5.0-9.0 Urine Specific [place] 1.007 1.001-1.035 Urine Protein Negative Negative Urine Ketones Negative Negative Urine Blood Negative Negative /uL Urine Nitrite Negative Negative Urine Bilirubin Negative Negative Urine Urobilinogen Normal Negative mg/dL Urine Leukocyte Esterase Negative Negative /uL Urine RBC 1 0 - 4 /hpf Urine WBC <1 0 - 5 /hpf Urine Squamous Epithelial Cells Few <5 /hpf Urine Bacteria Few H None Seen /hpf Urine Glucose Normal Normal mg/dL Troponin I High Sensitivity 3 L </=34 ng/L POC Glucose 137 H 70-106 mg/dl Test 02/26/24 07:36 02/26/24 02:30 Range/Units Prothrombin Time 10.6 9.3-11.8 sec Prothrombin Time INR 1.00 0.9-1.15 Activated Partial Thromboplast Time 27.3 24.5-34.5 SEC D-Dimer, Quantitative 0.53 H 0.0-0.49 mg/L FEU B-Type Natriuretic Peptide 12.74 0-100 pg/mL Influenza Type A Antigen Negative Negative Influenza Type B Antigen Negative Negative Plan 1. SOB r/t pneumothorax Monitor, pulmonary consult 2. S/p chest tube placement Monitor 3. GERD Monitor, PPI 4. HLD Monitor, restart home meds 5. COPD Monitor, pulmonary consult 6. SVT Monitor EKG, cardiology consult, beta blockers 7. Elevated D dimer Monitor 8. Pulmonary HTN Monitor, restart home meds Plan discussed with: Patient, Other HERNÁNDALJITMERCY May NP Feb 26, 2024 17:13
[2024-02-26] MEDS ORDERED: MORPHINE SULFATE INJ 2 MG/ml SYRG IV PRN (17:15)
[2024-02-26] MEDS ORDERED: NITROGLYCERIN 0.4 MG SL TAB SL PRN (17:15)
--- NOTE | 2024-02-26 20:06 | DVHINCON2 ---
Date of service: Feb 26, 2024 Referring Physician LIA Jim Reason for Consultation Right pneumothorax History of Present Illness 69-year-old woman history of COPD, asthma, diabetes mellitus type 2, hypertension, hyperlipidemia, GERD who presented with shortness of breath that has associated with a cough. She was using more oxygen at home. She denies any fever or chills. No nausea, vomiting, diarrhea constipation. Pulmonary consultation is called due to right pneumothorax and right chest tube management. Review of systems: 14 point review of systems is negative unless otherwise noted above. Past medical history: Asthma/COPD, diabetes mellitus type 2, GERD, hyperl ipidemia, hypertension, obesity with a BMI of 33.6 Past surgical history: Hysterectomy Medications: Reviewed Allergies: No known drug allergies. Family history: Family history notable for diabetes mellitus type 2, cancer, family history of heart disease. Social History: Smoker, cigarettes. Social alcohol use, marijuana, lives in home. Family History: FH: cancer G8 MOTHER FH: myocardial infarction G8 FATHER Hypertension G8 MOTHER G8 FATHER Allergies: Coded Allergies: NO KNOWN ALLERGIES (Unverified , 12/06/11) Home Meds Active Scripts Pantoprazole Sodium Sesquihydr (Protonix) 40 Mg Tab, 40 MG PO DAILY, #30 TAB Prov:DALJIT JIM NP 12/18/21 Ondansetron (Zofran) 4 Mg Tab, 1 TAB PO Q6HR, #20 TAB Prov:DALJIT JIM NP 12/18/21 Meclizine Hcl (Meclizine Hcl) 25 Mg Tab, 25 MG PO BIDP PRN for 7 Days, #14 MG Prov:ARUN LEES MD 07/03/21 Reported Medications Diclofenac Sodium (Topical) (Diclofenac Sodium) 1 % Gel, 2 GM TOP TID PRN for PA IN SCALE 1 THRU 6 08/22/23 Nifedipine (Nifedipine Er) 60 Mg Tab 08/22/23 Omeprazole (Omeprazole Dr) 40 Mg Cap 08/22/23 Ietxhhptxvx-Acmsvyxufdhb-Bktim (Trelegy Ellipta 200-62.5-25 Mcg/INH) 1 Aer Aer, 1 PUFF INH DAILY 08/22/23 Atorvastatin Calcium (ATORVASTATIN CALCIUM) 20 Mg Tab, 1 TAB PO DAILY 08/22/23 Albuterol Sulfate (Albuterol Sulfate Hfa) 108 Mcg/Act Aer, 1-2 PUFF PO PRN for wheezing 08/22/23 Oxycodone W/ Acetaminophen (Oxycodone Hydrochloride/A 10-300 mg/5Ml) 1 [place]ora Fl[place] 08/22/23 Gabapentin (Gabapentin) 300 Mg Cap, 3 PO TID 08/22/23 Furosemide (Furosemide) 20 Mg Tab, 1 TAB PO DAILY 08/22/23 Potassium Chloride (Klor-Con M10) 10 Meq Tab 08/22/23 Tizanidine Hydrochloride (Tizanidine Hcl) 4 Mg Tab, 1 TAB PO Q8HPRN PRN for FOR MUSCLE SPASM 08/22/23 Current Medications Current Medications Medications (Trade) Dose Ordered Sig/Kourtney Route PRN Reason Start Time Stop Time Status Last Admin Acetaminophen/ Hydrocodone Bitart (Craig 5/325MG Tab) 1 tab Q4HP PRN PO MODERATE PAIN (4-6 PAIN SCALE) 02/26/24 17:15 Ondansetron HCl (Zofran) 4 mg Q4HP PRN IV NAUSEA / VOMITING 02/26/24 17:15 Enoxaparin Sodium (Lovenox) 40 mg DAILY SC 02/27/24 10:00 Acetaminophen (Tylenol Tablet) 650 mg Q6HP PRN PO PAIN SCALE 1-3 OR TEMP>100.4 02/26/24 17:15 Morphine Sulfate 2 mg Q4HPRN PRN IV SEVERE PAIN (7-10 PAIN SCALE) 02/26/24 17:15 Nitroglycerin (Ntrostat Sublingual) 0.4 mg Q5MINP PRN SL FOR CHEST PAIN 02/26/24 17:15 Morphine Sulfate 2 mg Q30M PRN IV FOR CHEST PAIN 02/26/24 17:15 Vital Signs Vital Signs Date Time Temp Pulse Resp B/P (MAP) Pulse Ox O2 Delivery O2 Flow Rate FiO2 02/26/24 18:00 123 18 119/85 (96) 97 02/26/24 09:15 Nasal Cannula* 5 40 02/26/24 08:00 98.4 98.4 Physical Exam Gen.: Patient lying in bed in no apparent distress. On supplemental oxygen. Head: Normocephalic, atraumatic Eyes: EOMI/PERRLA. Ears: Normal hearing. Normal anatomy. Neck/trachea: Trachea midline, supple. Nose: Normal external anatomy. Mouth: Moist mucous membranes. Chest: Right chest tube in place. Decreased air entry bilaterally. No wheezing or rhonchi. Cardio vascular: Positive S1, positive S2. Regular rate and rhythm. Abdomen: Positive bowel sounds in all 4 quadrants. Soft, non-tender, non-dis tended. : Deferred. Rectal: Deferred Skin: Warm, dry. Intact Extremities: 2+ radial pulses bilaterally. No lower extremity edema. Neuro: Awake, alert, oriented x3. No gross motor or sensory deficits. Cranial nerves II through XII intact. Gait not assessed. Labs/Diagnostic Data Labs Test 02/26/24 10:09 02/26/24 09:19 02/26/24 07:54 02/26/24 07:36 Range/Units Urine Color Light-yellow Yellow Urine Clarity Clear Clear Urine pH 6.5 5.0-9.0 Urine Specific [place] 1.007 1.001-1.035 Urine Protein Negative Negative Urine Ketones Negative Negative Urine Blood Negative Negative /uL Urine Nitrite Negative Negative Urine Bilirubin Negative Negative Urine Urobilinogen Normal Negative mg/dL Urine Leukocyte Esterase Negative Negative /uL Urine RBC 1 0 - 4 /hpf Urine WBC <1 0 - 5 /hpf Urine Squamous Epithelial Cells Few <5 /hpf Urine Bacteria Few H None Seen /hpf Urine Glucose Normal Normal mg/dL Troponin I High Sensitivity 3 L </=34 ng/L POC Glucose 137 H 70-106 mg/dl White Blood Count 5.6 4.4-10.8 10^3/uL Red Blood Count 5.45 H 4.0-5.20 10^6/uL Hemoglobin 16.4 H 12.2-16.2 g/dL Hematocrit 50.0 H 36.0-46.0 % Mean Corpuscular Volume 91.6 80.0-100.0 fL Mean Corpuscular Hemoglobin 30.1 28.0-32.0 pg Mean Corpuscular Hemoglobin Concent 32.9 32.0-36.0 g/dL Red Cell Distribution Width 15.4 H 11.8-14.3 % Platelet Count 198 140-450 10^3/uL Mean Platelet Volume 9.0 6.9-10.8 fL Neutrophils (%) (Auto) 58.7 37.0-80.0 % Lymphocytes (%) (Auto) 19.3 10.0-50.0 % Monocytes (%) (Auto) 12.6 H 0.0-12.0 % Eosinophils (%) (Auto) 5.2 0.0-7.0 % Basophils (%) (Auto) 4.2 H 0.0-2.0 % Neutrophils # (Auto) 3.3 1.6-8.6 10 ^3/uL Lymphocytes # (Auto) 1.1 0.4-5.4 10 ^3/uL Monocytes # (Auto) 0.7 0-1.3 10 ^3/uL Eosinophils # (Auto) 0.3 0-0.8 10 ^3/uL Basophils # (Auto) 0.2 0-0.2 10 ^3/uL Nucleated Red Blood Cells 0.2 % Prothrombin Time 10.6 9.3-11.8 sec Prothrombin Time INR 1.00 0.9-1.15 Activated Partial Thromboplast Time 27.3 24.5-34.5 SEC D-Dimer, Quantitative 0.53 H 0.0-0.49 mg/L FEU Sodium Level 141 136-145 mmol/L Potassium Level 4.0 3.5-5.1 mmol/L Chloride Level 107 98-107 mmol/L Carbon Dioxide Level 27 20-31 mmol/L Anion Gap 7 5-15 Blood Urea Nitrogen 9 9-23 mg/dL Creatinine 0.68 0.550-1.02 mg/dL Glomerular Filtration Rate Calc 93 >90 mL/min BUN/Creatinine Ratio 13.2 10.0-20.0 Serum Glucose 130 H 74-106 mg/dL Calcium Level 10.5 H 8.7-10.4 mg/dL Total Bilirubin 0.7 0.2-1.0 mg/dL Aspartate Amino Transferase (AST) 26 13-40 U/L Alanine Aminotransferase (ALT) 19 7-40 U/L Alkaline Phosphatase 127 H 46-116 U/L B-Type Natriuretic Peptide 12.74 0-100 pg/mL Total Protein 7.9 5.7-8.2 g/dL Albumin 4.8 3.2-4.8 g/dL Assessment Impression: Acute hypoxic respiratory failure Right pneumothorax status post chest tube placement COPD Asthma Obesity with a BMI of 33.6 Atelectasis DM type II with hyperglycemia Elevated d-dimer Plan: chest tube in place Chest tube to -20 cmH2O continuous LWS. CXR demonstrates right chest tube in place with right lung re-expansion. Monitor for air leak. Daily CXR Supplemental o2 2 LPM via NC Keep o2 sat above 92% IS for atelectasis Pain control Avoid oversedation Accucheks, ISS Elevated d-dimer, likely reactive due to pneumothorax. DVT prophylaxis- Lovenox Condition: Critical Prognosis: Poor given multiple comorbidities. Rest of plan per hospitalist and other consultants. Thank you Dr. Montesinos/LIA Jim for allowing me to participate in this patient's care. Further recommendations will depend on patient's clinical course. Please do not hesitate to contact me if you have any questions or concerns. This medical document was created using an electronic medical record system with [employer] dictation system. Although this document has been carefully reviewed, there may still be some phonetic and typographical errors. These areas are purely typographical due to imperfections of the software programs, and do not reflect any compromise in the patient's medical care. Plan discussed with: Patient, Other (STEVE Fregoso MD/BILINGUAL HR GENERALIST) WADE PATEL MD Feb 26, 2024 20:06
[2024-02-26] MEDS: ONDANSETRON HCL 4 MG/2 ML VIAL IV PRN (21:55)
[2024-02-26] MEDS: MORPHINE SULFATE INJ 2 MG/ml SYRG IV PRN (22:21)
[2024-02-26 23:16] VITALS: O2SAT 94
[2024-02-27] VITALS (18 sets, daily range): BP systolic 105–136; BP diastolic 66–82; PULSE 85–134; RESP 17–95; TEMP 97.5–98.2; O2SAT 91–100
[2024-02-27] MEDS: HYDROcodone-ACET 5/325MG TAB PO PRN (00:42)
[2024-02-27 03:32] LABS: Rapid Influenza A Negative (Negative)
[2024-02-27 03:33] LABS: Rapid Influenza B Negative (Negative)
[2024-02-27] MEDS: IPRATROPIUM BROM 0.5 MG/2.5ML INH SOL NEB PRN (09:16)
[2024-02-27] MEDS: ALBUTEROL SULF 2.5 MG/0.5ML(0.5%) NEB SOLN NEB PRN (09:16)
[2024-02-27 09:50] LABS: Alanine Aminotransferase 11 U/L (7-40); Albumin 4.3 g/dL (3.2-4.8); Alkaline Phosphatase 108 U/L (46-116); Anion Gap 6 (5-15); Aspartate Aminotransferase 22 U/L (13-40); BUN/Creatinine Ratio 22.8 (10.0-20.0); Bilirubin, Total 0.8 mg/dL (0.2-1.0); Blood Urea Nitrogen 18 mg/dL (9-23); Carbon Dioxide 26 mmol/L (20-31); Potassium 4.4 mmol/L (3.5-5.1); Sodium 141 mmol/L (136-145)
[2024-02-27 09:53] LABS: Chloride 109 mmol/L (98-107); Glucose 167 mg/dL (74-106)
--- NOTE | 2024-02-27 09:54 | DVHPN2 ---
Progress Note - Dictate Date Seen: Feb 27, 2024 Medical Necessity Reason Pt with a Central, PICC or Fol: No vital signs Vital Sign Date Time Temp Pulse Resp B/P (MAP) Pulse Ox O2 Delivery O2 Flow Rate FiO2 02/27/24 09:48 94 Nasal Cannula 4.0 02/27/24 09:48 36 02/27/24 09:22 93 18 02/27/24 07:18 136/70 02/27/24 05:00 97.5 97.5 Total Intake and Output 02/26/24 02/26/24 02/27/24 15:00 23:00 07:00 Intake Total 175 ml Output Total 0 ml 400 ml Balance 0 ml -225 ml medications Current Medications Medications Dose Ordered Sig/Kourtney Route Start Time Stop Time Status Last Admin Dose Admin Acetaminophen/ Hydrocodone Bitart 1 tab Q4HP PRN PO 02/26/24 17:15 02/27/24 00:42 1 TAB Ondansetron HCl 4 mg Q4HP PRN IV 02/26/24 17:15 02/26/24 21:55 4 MG Enoxaparin Sodium 40 mg DAILY SC 02/27/24 10:00 Acetaminophen 650 mg Q6HP PRN PO 02/26/24 17:15 Morphine Sulfate 2 mg Q4HPRN PRN IV 02/26/24 17:15 02/27/24 07:18 2 MG Nitroglycerin 0.4 mg Q5MINP PRN SL 02/26/24 17:15 Morphine Sulfate 2 mg Q30M PRN IV 02/26/24 17:15 Albuterol 2.5 mg Q6HPRN PRN NEB 02/26/24 20:00 02/27/24 09:16 2.5 MG Ipratropium [place] 0.5 mg Q6HPRN PRN NEB 02/26/24 20:00 02/27/24 09:16 0.5 MG objective General Appearance: alert, no distress HEENT: EOMI, PERRLA, normal external inspect of ears, no icterus, no nasal drainage Neck: no carotid bruit, no jugular venous distention (JVD), no lymphadenopathy Chest: normal thorax Respiratory: clear to auscultation, normal air movement Cardiovascular: regular rate and rhythm, no diastolic murmur, no jugular venous distention (JVD), no rub, no systolic murmur Abdominal: soft, no hepatomegaly, no mass, no splenomegaly, no tenderness Genitourinary: grossly normal external Musculoskeletal: no joint tenderness, no swelling Extremities: normal pulses, no calf tenderness, no clubbing, no cyanosis, no edema Skin: no bruising, no jaundice, no rash Neurological: alert, No focal deficit laboratory and microbiology Laboratory Tests 02/27/24 08:50 Test 02/27/24 08:50 Range/Units Serum Glucose 167 H 74-106 mg/dL Problem List 1. SOB r/t pneumothorax Monitor, pulmonary consult 2. S/p chest tube placement Monitor 3. GERD Monitor, PPI 4. HLD Monitor, restart home meds 5. COPD Monitor, pulmonary consult 6. SVT Monitor EKG, cardiology consult, beta blockers 7. Elevated D dimer Monitor 8. Pulmonary HTN Monitor, restart home meds Assessment/Plan Subjective Patient is awake and alert. Objective Patient was admitted for shortness of breath related to pneumothorax. Chest tube was placed. Patient is having some discomfort at the chest tube site. Patient also has some periodic SVT. Plan Start beta-iam. Patient reportedly has underlying history of pulmonary hypertension. Restart home medications. Continue PPI. DVT prophylaxis. Supplemental O2 as needed. Plan discussed with: Patient, Other DALJIT JIM NP Feb 27, 2024 09:54
[2024-02-27 09:58] LABS: Basophils # (auto) 0 10 ^3/uL (0-0.2); Basophils % (auto) 0.6 % (0.0-2.0); Eosinophils # (auto) 0.1 10 ^3/uL (0-0.8); Eosinophils % (auto) 1.9 % (0.0-7.0); Hematocrit 46.6 % (36.0-46.0); Hemoglobin 15.5 g/dL (12.2-16.2); Lymphocytes # (auto) 0.9 10 ^3/uL (0.4-5.4); Lymphocytes % (auto) 14.8 % (10.0-50.0); Mean Corpuscular Hemoglobin 30.1 pg (28.0-32.0); Mean Corpuscular Hgb Conc. 33.3 g/dL (32.0-36.0); Mean Corpuscular Volume 90.4 fL (80.0-100.0); Monocytes # (auto) 0.9 10 ^3/uL (0-1.3); Monocytes % (auto) 16.3 % (0.0-12.0); Neutrophils # (auto) 3.8 10 ^3/uL (1.6-8.6); Neutrophils % (auto) 66.4 % (37.0-80.0); Nucleated Red Blood Cells % 0.2 %; Platelet Count (auto) 159 10^3/uL (140-450); Red Blood Cells 5.15 10^6/uL (4.0-5.20); Red Cell Distribution Width 15.6 % (11.8-14.3); White Blood Cell 5.8 10^3/uL (4.4-10.8)
[2024-02-27] MEDS: ACETAMINOPHEN 325 MG TAB PO PRN (10:03)
[2024-02-27] MEDS: ENOXAPARIN SOD 40 MG/0.4 ML SYRINGE SC SCH (10:03)
--- NOTE | 2024-02-27 11:14 | DVHINCON2 ---
Date of service: Feb 27, 2024 Referring Physician Daljit Jim NP Reason for Consultation Arrhythmia History of Present Illness This is a 69-year old female who initially presented (02/26/2024) with shortness of breath and cough with associated orthopnea for approximately 2 days prior to initial arrival. Upon ED arrival, initial twelve lead electrocardiogram was performed revealing sinus tachycardia at 104 bpm with no acute ischemic changes. Initial HS troponin level was found normal at <3 with subsequent level of <3. BNP level was found normal at 12.74. Covid-19, Influenza A/B were found negative. WBC found normal at 5.6. Initial chest x-ray revealed presence of a mo derate sized pneumothorax involving the right lung which patient underwent right sided chest tube placement. Subsequent chest x-ray post chest tube placement revealed interval improvement of right pneumothorax. Repeat chest imaging (02/27/2024) revealed presence of a small right apical pneumothorax with chest tube in situ with Pulmonology services have been involved. While within the ED, patient was noted to have an episode of as confirmed by EKG tracings which upon ED provider note, patient spontaneously converted back to sinus rhythm. Repeat EKG at the time post spontaneous conversion revealed sinus tachycardia at 105bpm. Initial potassium level found normal at 4.0 with a magnesium level of 2.0. TSH level was found to be 0.49. Current LDL is 145 with an A1C of 6.8. Cardiology services have now been involved for cardiac aspects of care. Past Medical History Past medical history includes obesity, diabetes mellitus, asthma, GERD, hypertension, hyperlipidemia, pulmonary hypertension, old history of hysterectomy and left knee replacement. She does smoke cigarettes. She occasionally uses marijuana. She occasionally drinks alcohol Past Surgical History Reviewed Family History: FH: cancer G8 MOTHER FH: myocardial infarction G8 FATHER Hypertension G8 MOTHER G8 FATHER Allergies: Coded Allergies: NO KNOWN ALLERGIES (Unverified , 12/06/11) Home Meds Active Scripts Pantoprazole Sodium Sesquihydr (Protonix) 40 Mg Tab, 40 MG PO DAILY, #30 TAB Prov:DALJIT JIM NP 12/18/21 Ondansetron (Zofran) 4 Mg Tab, 1 TAB PO Q6HR, #20 TAB Prov:DALJIT JIM NP 12/18/21 Meclizine Hcl (Meclizine Hcl) 25 Mg Tab, 25 MG PO BIDP PRN for 7 Days, #14 MG Prov:ARUN LEES MD 07/03/21 Reported Medications Diclofenac Sodium (Topical) (Diclofenac Sodium) 1 % Gel, 2 GM TOP TID PRN for PAIN SCALE 1 THRU 6 08/22/23 Nifedipine (Nifedipine Er) 60 Mg Tab 08/22/23 Omeprazole (Omeprazole Dr) 40 Mg Cap 08/22/23 Fyzflwlwoug-Qilsczmmnihh-Tvtdj (Trelegy Ellipta 200-62.5-25 Mcg/INH) 1 Aer Aer, 1 PUFF INH DAILY 08/22/23 Atorvastatin Calcium (ATORVASTATIN CALCIUM) 20 Mg Tab, 1 TAB PO DAILY 08/22/23 Albuterol Sulfate (Albuterol Sulfate Hfa) 108 Mcg/Act Aer, 1-2 PUFF PO PRN for wheezing 08/22/23 Oxycodone W/ Acetaminophen (Oxycodone Hydrochloride/A 10-300 mg/5Ml) 1 [place]ora Fl[place] 08/22/23 Gabapentin (Gabapentin) 300 Mg Cap, 3 PO TID 08/22/23 Furosemide (Furosemide) 20 Mg Tab, 1 TAB PO DAILY 08/22/23 Potassium Chloride (Klor-Con M10) 10 Meq Tab 08/22/23 Tizanidine Hydrochloride (Tizanidine Hcl) 4 Mg Tab, 1 TAB PO Q8HPRN PRN for FOR MUSCLE SPASM 08/22/23 Current Medications Current Medications Medications (Trade) Dose Ordered Sig/Kourtney Route PRN Reason Start Time Stop Time Status Last Admin Acetaminophen/ Hydrocodone Bitart ([place] 5/325MG Tab) 1 tab Q4HP PRN PO MODERATE PAIN (4-6 PAIN SCALE) 02/26/24 17:15 02/27/24 00:42 Ondansetron HCl (Zofran) 4 mg Q4HP PRN IV NAUSEA / VOMITING 02/26/24 17:15 02/26/24 21:55 Enoxaparin Sodium (Lovenox) 40 mg DAILY SC 02/27/24 10:00 02/27/24 10:03 Acetaminophen (Tylenol Tablet) 650 mg Q6HP PRN PO PAIN SCALE 1-3 OR TEMP>100.4 02/26/24 17:15 02/27/24 10:03 Morphine Sulfate 2 mg Q4HPRN PRN IV SEVERE PAIN (7-10 PAIN SCALE) 02/26/24 17:15 02/27/24 07:18 Nitroglycerin (Ntrostat Sublingual) 0.4 mg Q5MINP PRN SL FOR CHEST PAIN 02/26/24 17:15 Morphine Sulfate 2 mg Q30M PRN IV FOR CHEST PAIN 02/26/24 17:15 Albuterol (Ventolin Medneb) 2.5 mg Q6HPRN PRN NEB SHORTNESS OF BREATH 02/26/24 20:00 02/27/24 09:16 Ipratropium [place] (Atrovent Medneb) 0.5 mg Q6HPRN PRN NEB SHORTNESS OF BREATH 02/26/24 20:00 02/27/24 09:16 Review of Systems A 14-point review of systems is negative unless otherwise noted above Vital Signs Vital Signs Date Time Temp Pulse Resp B/P (MAP) Pulse Ox O2 Delivery O2 Flow Rate FiO2 02/27/24 09:48 94 Nasal Cannula 4.0 02/27/24 09:48 36 02/27/24 09:22 93 18 02/27/24 09:00 98.2 105/78 (87) 98.2 Physical Exam Heart: S1 and S2 regular. The patient is in sinus rhythm. Lungs: Scattered rhonchi. Abdomen: Benign. Extremities: Distal pulses palpable, 2+. With evidence for minimal edema Labs/Diagnostic Data Labs Test 02/27/24 08:50 02/26/24 10:09 02/26/24 09:19 02/26/24 07:54 Range/Units White Blood Count 5.8 4.4-10.8 10^3/uL Red Blood Count 5.15 4.0-5.20 10^6/uL Hemoglobin 15.5 12.2-16.2 g/dL Hematocrit 46.6 H 36.0-46.0 % Mean Corpuscular Volume 90.4 80.0-100.0 fL Mean Corpuscular Hemoglobin 30.1 28.0-32.0 pg Mean Corpuscular Hemoglobin Concent 33.3 32.0-36.0 g/dL Red Cell Distribution Width 15.6 H 11.8-14.3 % Platelet Count 159 140-450 10^3/uL Mean Platelet Volume 9.2 6.9-10.8 fL Neutrophils (%) (Auto) 66.4 37.0-80.0 % Lymphocytes (%) (Auto) 14.8 10.0-50.0 % Monocytes (%) (Auto) 16.3 H 0.0-12.0 % Eosinophils (%) (Auto) 1.9 0.0-7.0 % Basophils (%) (Auto) 0.6 0.0-2.0 % Neutrophils # (Auto) 3.8 1.6-8.6 10 ^3/uL Lymphocytes # (Auto) 0.9 0.4-5.4 10 ^3/uL Monocytes # (Auto) 0.9 0-1.3 10 ^3/uL Eosinophils # (Auto) 0.1 0-0.8 10 ^3/uL Basophils # (Auto) 0 0-0.2 10 ^3/uL Nucleated Red Blood Cells 0.2 % Sodium Level 141 136-145 mmol/L Potassium Level 4.4 3.5-5.1 mmol/L Chloride Level 109 H 98-107 mmol/L Carbon Dioxide Level 26 20-31 mmol/L Anion Gap 6 5-15 Blood Urea Nitrogen 18 9-23 mg/dL Creatinine 0.79 0.550-1.02 mg/dL Glomerular Filtration Rate Calc 80 >90 mL/min BUN/Creatinine Ratio 22.8 H 10.0-20.0 Serum Glucose 167 H 74-106 mg/dL Calcium Level 10.0 8.7-10.4 mg/dL Magnesium Level 2.0 1.6-2.6 mg/dL Total Bilirubin 0.8 0.2-1.0 mg/dL Aspartate Amino Transferase (AST) 22 13-40 U/L Alanine Aminotransferase (ALT) 11 7-40 U/L Alkaline Phosphatase 108 46-116 U/L Total Protein 7.0 5.7-8.2 g/dL Albumin 4.3 3.2-4.8 g/dL Triglycerides Level 89 < 150 mg/dL Cholesterol Level 211 H < 200 mg/dL LDL Cholesterol 145 H < 100 mg/dL HDL Cholesterol 52 40-59 mg/dL Urine Color Light-yellow Yellow Urine Clarity Clear Clear Urine pH 6.5 5.0-9.0 Urine Specific [place] 1.007 1.001-1.035 Urine Protein Negative Negative Urine Ketones Negative Negative Urine Blood Negative Negative /uL Urine Nitrite Negative Negative Urine Bilirubin Negative Negative Urine Urobilinogen Normal Negative mg/dL Urine Leukocyte Esterase Negative Negative /uL Urine RBC 1 0 - 4 /hpf Urine WBC <1 0 - 5 /hpf Urine Squamous Epithelial Cells Few <5 /hpf Urine Bacteria Few H None Seen /hpf Urine Glucose Normal Normal mg/dL Troponin I High Sensitivity 3 L </=34 ng/L POC Glucose 137 H 70-106 mg/dl Test 02/26/24 07:36 02/26/24 02:30 Range/Units Prothrombin Time 10.6 9.3-11.8 sec Prothrombin Time INR 1.00 0.9-1.15 Activated Partial Thromboplast Time 27.3 24.5-34.5 SEC D-Dimer, Quantitative 0.53 H 0.0-0.49 mg/L FEU B-Type Natriuretic Peptide 12.74 0-100 pg/mL Influenza Type A Antigen Negative Negative Influenza Type B Antigen Negative Negative Plan/Recommendation This is a 69-year old female who initially presented (02/26/2024) with shortness of breath and cough with associated orthopnea for approximately 2 days prior to initial arrival. Upon ED arrival, initial twelve lead electrocardiogram was performed revealing sinus tachycardia at 104 bpm with no acute ischemic changes. Initial HS troponin level was found normal at <3 with subsequent level of <3. BNP level was found normal at 12.74. Covid-19, Influenza A/B were found negative. WBC found normal at 5.6. Initial chest x-ray revealed presence of a moderate sized pneumothorax involving the right lung which patient underwent right sided chest tube placement. Subsequent chest x-ray post chest tube placement revealed interval improvement of right pneumothorax. Repeat chest imaging (02/27/2024) revealed presence of a small right apical pneumothorax with chest tube in situ which Pulmonology services have been involved for management. While within the ED, patient was noted to have an episode of tachycardia which upon EKG analysis, there is presence of a narrow-complex tachycardia at 191 bpm with questionable presence of 2:1 atrial flutter which as per ED provider note, patient spontaneously converted back to sinus rhythm. Repeat EKG at the time post spontaneous conversion revealed sinus tachycardia at 105bpm. Initial potassium level found normal at 4.0 with a magnesium level of 2.0. TSH level was found to be 0.49. Current LDL is 145 with an A1C of 6.8. Cardiology services have now been involved for cardiac aspects of care. Past medical history includes obesity, diabetes mellitus, asthma, GERD, hypertension, hyperlipidemia, pulmonary hypertension, old history of hysterectomy and left knee replacement. She does smoke cigarettes. She occasionally uses marijuana. She occasionally drinks alcohol Echocardiogram (08/2023) revealed Left ventricle: Left ventricle is normal size with normal systolic function. LVEF was 65 to 70%. There was no gross wall mot ion abnormality. Left atrium was normal size. Right-sided chambers were dilated. Aortic valve was trileaflet. There was no aortic insufficiency/stenosis. There was trivial mitral regurgitation. There was mild tricuspid regurgitation. Pulmonary valve was not well-visualized Right ventricular systolic pressure was assessed around 65 mmHg. IVC was dilated. There was no pericardial effusion. Assessment: Acute hypoxic respiratory failure, secondary to right-sided pneumothorax Right-sided pneumothorax, status post chest tube placement Narrow-complex tachycardia, questioning 2:1 atrial flutter Abnormal D-Dimer (0.59), likely refractory to pneumothorax Abnormal TSH level (0.49), rule out thyroid dysfunction Pulmonary hypertension Nicotine dependence Diabetes mellitus II Asthma, history of COPD, history of Hyperlipidemia Hypertension Obesity Plan: As patient initially presented and was noted to have an episode of narrow complex tachycardia, cardiology services were involved for its evaluation. Upon analysis of the EKG during the event, tracing reveals a narrow complex tachycardia at 191 bpm with questionable presence of 2:1 atrial flutter which resolved spontaneously as she converted without intervention. As there is questionable presence of paroxysmal atrial flutter, recommendation is to initiate beta-iam therapy and start full anti-coagulation as the patient carries a higher risk for potential cerebral insult as confirmed by a high CHADSVASc score of at least 4. Patient will need to undergo long-term event monitoring on an outpatient basis to further observe for such occult arrhythmias upon discharge. During the interim, recommendation is to proceed with close rate and rhythm surveillance, sustain potassium levels greater than 4.0, sustain magnesium levels greater than 2.0. Will request for 2D Echocardiogram. Will request for thyroid panel as TSH level is found to be 0.49 to further evaluate as an underlying thyroid process could be a factor attributing to the arrhythmia. Will proceed to follow from a cardiac perspective. Further recommendations as per clinical course and the above ordered findings. Request for 2D Echocardiogram Request for thyroid function test Request for BLE Venous Duplex Start Therapeutic Lovenox for now Start Metoprolol Tartrate 25mg twice daily for now If thyroid function is abnormal, consider thyroid sonogram Consider further event monitoring (can be arranged outpatient) Follow up renal function/electrolytes and correct abnormalities Management of underlying pneumothorax as per Pulmonology Counseled on importance of tobacco cessation Consider CTA of Chest if warranted Proceed with close rate and rhythm surveillance Proceed with close hemodynamic surveillance Proceed with optimized blood pressure control Transfuse to sustain HGB level above 7.0 Sustain Magnesium level greater than 2.0 Sustain Potassium level greater than 4.0 Follow up renal function and electrolytes Management in telemetry Follow up Pulmonology recommendations Will proceed to follow from a cardiac perspective Further recommendations per clinical progression All available diagnostic labs, EKG's, and images were personally reviewed Patient's status, findings, and plan of care was reviewed and discussed with supervising physician Dr. Anderson, who is in agreement with current plan of care. Plan of care discussed with and agreed upon by patient / primary RN Prognosis: Guarded Thank you for allowing me to participate in the care of this patient. Further recommendations based on patients clinical course and progression, primary attending, and other consultants. Will continue to follow with primary attending. If you have any questions or concerns, please do not hesitate to contact me. A total of 75 minutes was spent reviewing the patient record, examining the patient, making a diagnostic and therapeutic plan, discussing this plan with medical personnel, following up on diagnostic studies and following the patient for clinical stability excluding any and all procedures. At least 50% of this time was spent in direct, [id number] contact. Plan discussed with: Patient (Patient and Primary RN ) INDIA ALMARAZ Feb 27, 2024 11:14
[2024-02-27] MEDS: methylPREDNISolone SOD SUCC 40 MG/ML VL IV SCH (14:28)
[2024-02-27] MEDS: METOPROLOL TARTRATE 25 MG TAB PO SCH (14:28)
[2024-02-27] MEDS: GABAPENTIN 300 MG CAP PO SCH (14:28)
[2024-02-27] MEDS: IPRATROPIUM BROM 0.5 MG/2.5ML INH SOL NEB SCH (15:03)
[2024-02-27] MEDS: ALBUTEROL SULF 2.5 MG/0.5ML(0.5%) NEB SOLN NEB SCH (15:03)
--- NOTE | 2024-02-27 16:16 | DVH ---
CHEST RADIOGRAPH Indication: interval changes in pneumothorax Technique: Single frontal view of the chest was obtained COMPARISON: XY CHEST XRAY 1 VIEW on DOS: 02/26/24, XY CHEST PORTABLE on DOS: 02/26/24, XY CHEST MATIAS BLE on DOS: 08/24/23, XY CHEST PORTABLE on DOS: 08/21/23, XY CHEST PORTABLE on DOS: 03/23/23 FINDINGS: Lines and Tubes: Right chest tube in-situ. Lungs: Clear Pleura: No effusion. Small right apical pneumothorax. Cardiomediastinal contours: Unremarkable Bones: Unremarkable IMPRESSION: Small right apical pneumothorax with right chest tube in-situ.
[2024-02-27] MEDS: ENOXAPARIN SOD 100 MG/1 ML SYRINGE SC SCH (21:33)
--- NOTE | 2024-02-27 22:34 | DVHPN2 ---
Progress Note - Dictate Date Seen: Feb 27, 2024 Medical Necessity Reason Pt with a Central, PICC or Fol: No Subjective Patient seen and examined at bedside. Remains on supplemental oxygen Overnight events reviewed. vital signs Vital Sign Date Time Temp Pulse Resp B/P (MAP) Pulse Ox O2 Delivery O2 Flow Rate FiO2 02/27/24 21:15 85 112/66 02/27/24 21:00 97.6 20 97 97.6 02/27/24 19:59 Nasal Cannula* 3 32 Total Intake and Output 02/26/24 02/26/24 02/27/24 15:00 23:00 07:00 Intake Total 175 ml Output Total 0 ml 400 ml Balance 0 ml -225 ml medications Current Medications Medications Dose Ordered Sig/Kourtney Route Start Time Stop Time Status Last Admin Dose Admin Acetaminophen/ Hydrocodone Bitart 1 tab Q4HP PRN PO 02/26/24 17:15 02/27/24 20:46 1 TAB Ondansetron HCl 4 mg Q4HP PRN IV 02/26/24 17:15 02/26/24 21:55 4 MG Acetaminophen 650 mg Q6HP PRN PO 02/26/24 17:15 02/27/24 10:03 650 MG Morphine Sulfate 2 mg Q4HPRN PRN IV 02/26/24 17:15 02/27/24 14:31 2 MG Nitroglycerin 0.4 mg Q5MINP PRN SL 02/26/24 17:15 Morphine Sulfate 2 mg Q30M PRN IV 02/26/24 17:15 Albuterol 2.5 mg Q6HR NEB 02/27/24 12:45 02/27/24 18:28 2.5 MG Ipratropium [place] 0.5 mg Q6HR NEB 02/27/24 12:45 02/27/24 18:28 0.5 MG Methylprednisolone Sodium Succinate 40 mg Q8HR IV 02/27/24 14:00 02/27/24 21:19 40 MG Atorvastatin Calcium 20 mg HS PO 02/28/24 22:00 Furosemide 20 mg DAILY PO 02/28/24 10:00 Gabapentin 300 mg TID PO 02/27/24 14:00 02/27/24 21:19 300 MG Pantoprazole Sodium 40 mg DAILY@0600 PO 02/28/24 06:00 Metoprolol Tartrate 25 mg BID PO 02/27/24 13:45 02/27/24 14:28 25 MG Azithromycin 500 mg DAILY PO 02/28/24 10:00 03/02/24 09:59 Enoxaparin Sodium 90 mg Q12HR SC 02/27/24 22:00 02/27/24 21:33 90 MG objective Gen.: Patient lying in bed in no apparent distress. On supplemental oxygen. Head: Normocephalic, atraumatic. Eyes: EOMI/PERRLA. Ears: Normal hearing. Normal anatomy. Neck/trachea: Trachea midline, supple. Nose: Normal external anatomy. Mouth: Moist mucous membranes. Chest: Decreased air entry bilaterally. Wheezing. No rhonchi. Cardiovascular: Positive S1, positive S2. Regular rate and rhythm. Abdomen: Positive bowel sounds in all 4 quadrants. Soft, non-tender, non- distended. : Deferred. Rectal: Deferred. Skin: Warm, dry. Intact. Extremities: 2+ radial pulses bilaterally. No lower extremity edema. Neuro: Awake, alert, oriented x3. No gross motor or sensory deficits. Cranial nerves II through XII intact. Gait not assessed. laboratory and microbiology Laboratory Tests 02/27/24 08:50 Test 02/27/24 08:50 Range/Units Serum Glucose 167 H 74-106 mg/dL Assessment/Plan Impression: Acute hypoxic respiratory failure Right pneumothorax status post chest tube placement COPD Asthma Obesity with a BMI of 33.6 Atelectasis DM type II with hyperglycemia Elevated d-dimer Events: Remains on supplemental oxygen, 2 LPM NC Taper O2 as tolerated Continue bronchodilators PRN Incentive spirometry COPD exacerbation, wheezing on exam Start steroids Antibiotics Chest x-ray pending. Pain control Avoid oversedation Labs and imaging reviewed. Rest of plan as noted below. Plan: chest tube in place Chest tube to -20 cmH2O continuous LWS. CXR demonstrates right chest tube in place with right lung re-expansion. Monitor for air leak. Daily CXR Supplemental o2 2 LPM via NC Keep o2 sat above 92% IS for atelectasis Pain control Avoid oversedation Accucheks, ISS Elevated d-dimer, likely reactive due to pneumothorax. DVT prophylaxis- Lovenox Prognosis: Poor given multiple comorbidities. Rest of plan per hospitalist and other consultants. Thank you Dr. Montesinos/LIA Carrington for allowing me to participate in this patient's care. Further recommendations will depend on patient's clinical course. Please do not hesitate to contact me if you have any questions or concerns. This medical document was created using an electronic medical record system with [employer] dictation system. Although this document has been carefully reviewed, there may still be some phonetic and typographical errors. These areas are purely typographical due to imperfections of the software programs, and do not reflect any compromise in the patient's medical care. Plan discussed with: Patient, Other (RN Summer) WADE PATEL MD Feb 27, 2024 22:34
--- NOTE | 2024-02-27 22:49 | DVH ---
CLINICAL HISTORY: suspected clot TECHNIQUE: Color and duplex doppler imaging of the bilateral lower extremity veins was performed. Ves reena compression if possible was also performed. WID: COMPARISON: None FINDINGS: Right Lower Extremity: Right common femoral vein: Normal compressibility and flow. Right femoral vein: Normal compressibility and flow. Right popliteal vein: Normal compressibility and flow. Proximal calf veins are normally compressible. Left Lower Extremity: Left common femoral vein: Normal compressibility and flow. Left femoral vein: Normal compressibility and flow. Left popliteal vein: Normal compressibility and flow. Proximal calf veins are normally compressible. IMPRESSION: NO SONOGRAPHIC EVIDENCE FOR DEEP VENOUS THROMBOSIS IN THE BILATERAL LOWER EXTREMITY VEINS.
[2024-02-28] VITALS (15 sets, daily range): BP systolic 113–142; BP diastolic 69–88; PULSE 70–125; RESP 14–21; TEMP 97.6–98.6; O2SAT 93–99
--- NOTE | 2024-02-28 05:02 | DVHPN2 ---
Progress Note - Dictate Date Seen: Feb 28, 2024 Medical Necessity Reason Pt with a Central, PICC or Fol: No Subjective Patient seen and examined at the bedside within telemetry. Chart reviewed. vital signs Vital Sign Date Time Temp Pulse Resp B/P (MAP) Pulse Ox O2 Delivery O2 Flow Rate FiO2 02/28/24 03:02 91 18 137/79 02/27/24 23:54 98 02/27/24 21:00 97.6 97.6 02/27/24 20:00 Nasal Cannula* 3 32 Total Intake and Output 02/27/24 02/27/24 02/28/24 15:00 23:00 07:00 Intake Total 590 ml Output Total 600 ml Balance -10 ml medications Current Medications Medications Dose Ordered Sig/Kourtney Route Start Time Stop Time Status Last Admin Dose Admin Acetaminophen/ Hydrocodone Bitart 1 tab Q4HP PRN PO 02/26/24 17:15 02/27/24 20:46 1 TAB Ondansetron HCl 4 mg Q4HP PRN IV 02/26/24 17:15 02/26/24 21:55 4 MG Acetaminophen 650 mg Q6HP PRN PO 02/26/24 17:15 02/27/24 10:03 650 MG Morphine Sulfate 2 mg Q4HPRN PRN IV 02/26/24 17:15 02/28/24 03:02 2 MG Nitroglycerin 0.4 mg Q5MINP PRN SL 02/26/24 17:15 Morphine Sulfate 2 mg Q30M PRN IV 02/26/24 17:15 Albuterol 2.5 mg Q6HR NEB 02/27/24 12:45 02/27/24 23:53 2.5 MG Ipratropium [place] 0.5 mg Q6HR NEB 02/27/24 12:45 02/27/24 23:53 0.5 MG Methylprednisolone Sodium Succinate 40 mg Q8HR IV 02/27/24 14:00 02/27/24 21:19 40 MG Atorvastatin Calcium 20 mg HS PO 02/28/24 22:00 Furosemide 20 mg DAILY PO 02/28/24 10:00 Gabapentin 300 mg TID PO 02/27/24 14:00 02/27/24 21:19 300 MG Pantoprazole Sodium 40 mg DAILY@0600 PO 02/28/24 06:00 Metoprolol Tartrate 25 mg BID PO 02/27/24 13:45 02/27/24 14:28 25 MG Azithromycin 500 mg DAILY PO 02/28/24 10:00 03/02/24 09:59 Enoxaparin Sodium 90 mg Q12HR SC 02/27/24 22:00 02/27/24 21:33 90 MG objective Heart: S1 and S2 regular. The patient is in sinus rhythm. Lungs: Scattered rhonchi. Abdomen: Benign. Extremities: Distal pulses palpable, 2+. With evidence for minimal edema laboratory and microbiology Laboratory Tests 02/27/24 08:50 Test 02/27/24 08:50 Range/Units Serum Glucose 167 H 74-106 mg/dL Assessment/Plan Assessment/Plan Plan/Recommendation This is a 69-year old female who initially presented (02/26/2024) with shortness of breath and cough with associated orthopnea for approximately 2 days prior to initial arrival. Upon ED arrival, initial twelve lead electrocardiogram was performed revealing sinus tachycardia at 104 bpm with no acute ischemic changes. Initial HS troponin level was found normal at <3 with subsequent level of <3. BNP level was found normal at 12.74. Covid-19, Influenza A/B were found negative. WBC found normal at 5.6. Initial chest x-ray revealed presence of a moderate sized pneumothorax involving the right lung which patient underwent right sided chest tube placement. Subsequent chest x-ray post chest tube placement revealed interval improvement of right pneumothorax. Repeat chest imaging (02/27/2024) revealed presence of a small right apical pneumothorax with chest tube in situ which Pulmonology services have been involved for management. While within the ED, patient was noted to have an episode of tachycardia which upon EKG analysis, there is presence of a narrow-complex tachycardia at 191 bpm with questionable presence of 2:1 atrial flutter which as per ED provider note, patient spontaneously converted back to sinus rhythm. Repeat EKG at the time post spontaneous conversion revealed sinus tachycardia at 105bpm. Initial potassium level found normal at 4.0 with a magnesium level of 2.0. TSH level was found to be 0.49. Current LDL is 145 with an A1C of 6.8. Cardiology services have now been involved for cardiac aspects of care. Past medical history includes obesity, diabetes mellitus, asthma, GERD, hypertension, hyperlipidemia, pulmonary hypertension, old history of hysterectomy and left knee replacement. She does smoke cigarettes. She occasionally uses marijuana. She occasionally drinks alcohol Echocardiogram (08/2023) revealed Left ventricle: Left ventricle is normal size with normal systolic function. LVEF was 65 to 70%. There was no gross wall motion abnormality. Left atrium was normal size. Right-sided chambers were dilated. Aortic valve was trileaflet. There was no aortic insufficiency/stenosis. There was trivial mitral regurgitation. There was mild tricuspid regurgitation. Pulmonary valve was not well-visualized Right ventricular systolic pressure was assessed around 65 mmHg. IVC was dilated. There was no pericardial effusion. Assessment: Acute hypoxic respiratory failure, secondary to right-sided pneumothorax Right-sided pneumothorax, status post chest tube placement Narrow-complex tachycardia, questioning 2:1 atrial flutter Abnormal D-Dimer (0.59), likely refractory to pneumothorax Abnormal TSH level (0.49), rule out thyroid dysfunction Pulmonary hypertension Nicotine dependence Diabetes mellitus II Asthma, history of COPD, history of Hyperlipidemia Hypertension Obesity Plan: As patient initially presented and was noted to have an episode of narrow complex tachycardia, cardiology services were involved for its evaluation. Upon analysis of the EKG during the event, tracing reveals a narrow complex tachycardia at 191 bpm with questionable presence of 2:1 atrial flutter which resolved spontaneously as she converted without intervention. As there is questionable presence of paroxysmal atrial flutter, recommendation is to initiate beta-iam therapy and start full anti-coagulation as the patient carries a higher risk for potential cerebral insult as confirmed by a high CHADSVASc score of at least 4. Patient will need to undergo long-term event monitoring on an outpatient basis to further observe for such occult arrhythmias upon discharge. During the interim, recommendation is to proceed with close rate and rhythm surveillance, sustain potassium levels greater than 4.0, sustain magnesium levels greater than 2.0. Will request for 2D Echocardiogram. Will request for thyroid panel as TSH level is found to be 0.49 to further evaluate as an underlying thyroid process could be a factor attributing to the arrhythmia. Will proceed to follow from a cardiac perspective. Further recommendations as per clinical course and the above ordered findings. Request for 2D Echocardiogram Request for thyroid function test Request for BLE Venous Duplex On Therapeutic Lovenox for now Metoprolol Tartrate 25mg twice daily for now If thyroid function is abnormal, consider thyroid sonogram Consider further event monitoring (can be arranged outpatient) Follow up renal function/electrolytes and correct abnormalities Management of underlying pneumothorax as per Pulmonology Counseled on importance of tobacco cessation Consider CTA of Chest if warranted Proceed with close rate and rhythm surveillance Proceed with close hemodynamic surveillance Proceed with optimized blood pressure control Transfuse to sustain HGB level above 7.0 Sustain Magnesium level greater than 2.0 Sustain Potassium level greater than 4.0 Follow up renal function and electrolytes Management in telemetry Follow up Pulmonology recommendations Will proceed to follow from a cardiac perspective Further recommendations per clinical progression All available diagnostic labs, EKG's, and images were personally reviewed Patient's status, findings, and plan of care was reviewed and discussed with supervising physician Dr. Anderson, who is in agreement with current plan of care. Plan of care discussed with and agreed upon by patient / primary RN Prognosis: Guarded Thank you for allowing me to participate in the care of this patient. Further recommendations based on patients clinical course and progression, primary attending, and other consultants. Will continue to follow with primary attending. If you have any questions or concerns, please do not hesitate to contact me. A total of 75 minutes was spent reviewing the patient record, examining the patient, making a diagnostic and therapeutic plan, discussing this plan with medical personnel, following up on diagnostic studies and following the patient for clinical stability excluding any and all procedures. At least 50% of this time was spent in direct, [id number] contact. Plan discussed with: Patient (Patient and Primary RN ) Plan discussed with: Patient (Patient and Primary RN ) INDIA ALMARAZ Feb 28, 2024 05:02
[2024-02-28] MEDS: PANTOPRAZOLE 40 MG TAB PO SCH (05:35)
--- NOTE | 2024-02-28 05:38 | DVH ---
EXAM: XY CHEST XRAY 1 VIEW Indication: interval changes in pneumothorax Technique: Single frontal view of the chest was obtained Comparison: XY CHEST XRAY 1 VIEW on DOS: 02/27/24, XY CHEST XRAY 1 VIEW on DOS: 02/26/24, XY CHEST PO RTABLE on DOS: 02/26/24, XY CHEST PORTABLE on DOS: 08/24/23, XY CHEST PORTABLE on DOS: 08/21/23 FINDINGS: Lines and Tubes: Right chest tube is visualized. Subcutaneous gas projects over the right chest wall. Lungs: No focal consolidation. Pleura: No effusion. No pneumothorax. Cardiomediastinal contours: Unremarkable Bones: No acute osseous abnormality. IMPRESSION: No appreciable pneumothorax. Right chest tube is visualized.
[2024-02-28] MEDS: AZITHROMYCIN 250 MG TAB PO SCH (09:44)
[2024-02-28] MEDS: FUROSEMIDE 20 MG TAB PO SCH (09:44)
[2024-02-28] MEDS ORDERED: AZITHROMYCIN 500MG/ 250ML 250 ML IV SCH (10:00)
--- NOTE | 2024-02-28 10:26 | DVHPN2 ---
Progress Note - Dictate Date Seen: Feb 28, 2024 Medical Necessity Reason Pt with a Central, PICC or Fol: No vital signs Vital Sign Date Time Temp Pulse Resp B/P (MAP) Pulse Ox O2 Delivery O2 Flow Rate FiO2 02/28/24 09:44 91 138/76 02/28/24 09:00 98.0 19 94 98.0 02/28/24 07:40 Nasal Cannula* 3 32 Total Intake and Output 02/27/24 02/27/24 02/28/24 15:00 23:00 07:00 Intake Total 590 ml 800 ml Output Total 600 ml 550 ml Balance -10 ml 250 ml medications Current Medications Medications Dose Ordered Sig/Kourtney Route Start Time Stop Time Status Last Admin Dose Admin Acetaminophen/ Hydrocodone Bitart 1 tab Q4HP PRN PO 02/26/24 17:15 02/28/24 09:45 1 TAB Ondansetron HCl 4 mg Q4HP PRN IV 02/26/24 17:15 02/26/24 21:55 4 MG Acetaminophen 650 mg Q6HP PRN PO 02/26/24 17:15 02/28/24 05:44 650 MG Morphine Sulfate 2 mg Q4HPRN PRN IV 02/26/24 17:15 02/28/24 03:02 2 MG Nitroglycerin 0.4 mg Q5MINP PRN SL 02/26/24 17:15 Morphine Sulfate 2 mg Q30M PRN IV 02/26/24 17:15 Albuterol 2.5 mg Q6HR NEB 02/27/24 12:45 02/28/24 07:40 2.5 MG Ipratropium [place] 0.5 mg Q6HR NEB 02/27/24 12:45 02/28/24 07:40 0.5 MG Methylprednisolone Sodium Succinate 40 mg Q8HR IV 02/27/24 14:00 02/28/24 05:36 40 MG Atorvastatin Calcium 20 mg HS PO 02/28/24 22:00 Furosemide 20 mg DAILY PO 02/28/24 10:00 02/28/24 09:44 20 MG Gabapentin 300 mg TID PO 02/27/24 14:00 02/28/24 05:35 300 MG Pantoprazole Sodium 40 mg DAILY@0600 PO 02/28/24 06:00 02/28/24 05:35 40 MG Metoprolol Tartrate 25 mg BID PO 02/27/24 13:45 02/28/24 09:44 25 MG Azithromycin 500 mg DAILY PO 02/28/24 10:00 03/02/24 09:59 02/28/24 09:44 500 MG Enoxaparin Sodium 90 mg Q12HR SC 02/27/24 22:00 02/28/24 09:44 90 MG objective General Appearance: alert, no distress HEENT: EOMI, PERRLA, normal external inspect of ears, no icterus, no nasal drainage Neck: no carotid bruit, no jugular venous distention (JVD), no lymphadenopathy Chest: normal thorax Respiratory: clear to auscultation, normal air movement Cardiovascular: regular rate and rhythm, no diastolic murmur, no jugular venous distention (JVD), no rub, no systolic murmur Abdominal: soft, no hepatomegaly, no mass, no splenomegaly, no tenderness Genitourinary: grossly normal external Musculoskeletal: no joint tenderness, no swelling Extremities: normal pulses, no calf tenderness, no clubbing, no cyanosis, no edema Skin: no bruising, no jaundice, no rash Neurological: alert, No focal deficit laboratory and microbiology Laboratory Tests 02/27/24 08:50 Test 02/27/24 08:50 Range/Units Serum Glucose 167 H 74-106 mg/dL Problem List 1. SOB r/t pneumothorax Monitor, pulmonary consult 2. S/p chest tube placement Monitor 3. GERD Monitor, PPI 4. HLD Monitor, restart home meds 5. COPD Monitor, pulmonary consult 6. SVT Monitor EKG, cardiology consult, beta blockers 7. Elevated D dimer Monitor 8. Pulmonary HTN Monitor, restart home meds Assessment/Plan Subjective: Patient is awake and alert. Objective: Patient was admitted for shortness of breath on February 26, 2024. She was found to have a pneumothorax, and a chest tube was placed. Patient experienced several instances of SVT and has an underlying history of smoking and COPD. Glucose levels were elevated, and the patient is a known diabetic. Plan: Start insulin sliding scale. Provide smoking cessation education. Monitor EKG and continue breathing treatments for COPD and supplemental oxygen as tolerated. Continue beta iam for SVT. Plan discussed with: Patient, Other DALJIT JIM NP Feb 28, 2024 10:26
[2024-02-28] MEDS ORDERED: DEXTROSE (50%) 50ML SYRG IV PRN (10:30)
[2024-02-28] MEDS: ACCU-CHEK COMFORT CURVE STRIP VI SCH (11:00)
[2024-02-28] MEDS: InsuLIN REG 1unit/0.01ml Soln (100units/ml) SC SCH ×2 (11:34→21:51)
--- NOTE | 2024-02-28 21:19 | DVHPN2 ---
Progress Note - Dictate Date Seen: Feb 28, 2024 Medical Necessity Reason Pt with a Central, PICC or Fol: No Subjective Patient seen and examined at bedside. Remains on supplemental oxygen Overnight events reviewed. vital signs Vital Sign Date Time Temp Pulse Resp B/P (MAP) Pulse Ox O2 Delivery O2 Flow Rate FiO2 02/28/24 21:00 98.6 103 19 113/78 (90) 95 98.6 02/28/24 18:37 Nasal Cannula 4.0 02/28/24 18:37 36 Total Intake and Output 02/27/24 02/27/24 02/28/24 15:00 23:00 07:00 Intake Total 590 ml 800 ml Output Total 600 ml 550 ml Balance -10 ml 250 ml medications Current Medications Medications Dose Ordered Sig/Kourtney Route Start Time Stop Time Status Last Admin Dose Admin Acetaminophen/ Hydrocodone Bitart 1 tab Q4HP PRN PO 02/26/24 17:15 02/28/24 18:34 1 TAB Ondansetron HCl 4 mg Q4HP PRN IV 02/26/24 17:15 02/26/24 21:55 4 MG Acetaminophen 650 mg Q6HP PRN PO 02/26/24 17:15 02/28/24 15:37 650 MG Morphine Sulfate 2 mg Q4HPRN PRN IV 02/26/24 17:15 02/28/24 19:53 2 MG Nitroglycerin 0.4 mg Q5MINP PRN SL 02/26/24 17:15 Morphine Sulfate 2 mg Q30M PRN IV 02/26/24 17:15 Albuterol 2.5 mg Q6HR NEB 02/27/24 12:45 02/28/24 18:37 2.5 MG Ipratropium [place] 0.5 mg Q6HR NEB 02/27/24 12:45 02/28/24 18:37 0.5 MG Methylprednisolone Sodium Succinate 40 mg Q8HR IV 02/27/24 14:00 02/28/24 15:36 40 MG Atorvastatin Calcium 20 mg HS PO 02/28/24 22:00 Furosemide 20 mg DAILY PO 02/28/24 10:00 02/28/24 09:44 20 MG Gabapentin 300 mg TID PO 02/27/24 14:00 02/28/24 15:37 300 MG Pantoprazole Sodium 40 mg DAILY@0600 PO 02/28/24 06:00 02/28/24 05:35 40 MG Metoprolol Tartrate 25 mg BID PO 02/27/24 13:45 02/28/24 09:44 25 MG Azithromycin 500 mg DAILY PO 02/28/24 10:00 03/02/24 09:59 02/28/24 09:44 500 MG Diagnostic Test (Pha) 1 strip ACHS 02/28/24 11:30 02/28/24 17:03 1 STRIP Insulin Human Regular HS SC 02/28/24 22:00 Insulin Human Regular AC SC 02/28/24 11:30 02/28/24 11:34 6 UNITS Dextrose 50 ml UD PRN IV 02/28/24 10:30 Enoxaparin Sodium 40 mg DAILY SC 02/29/24 10:00 Docusate Sodium 100 mg BID PO 02/28/24 22:00 objective Gen.: Patient lying in bed in no apparent distress. On supplemental oxygen. Head: Normocephalic, atraumatic. Eyes: EOMI/PERRLA. Ears: Normal hearing. Normal anatomy. Neck/trachea: Trachea midline, supple. Nose: Normal external anatomy. Mouth: Moist mucous membranes. Chest: Decreased air entry bilaterally. Wheezing. No rhonchi. Cardiovascular: Positive S1, positive S2. Regular rate and rhythm. Abdomen: Positive bowel sounds in all 4 quadrants. Soft, non-tender, non- distended. : Deferred. Rectal: Deferred. Skin: Warm, dry. Intact. Extremities: 2+ radial pulses bilaterally. No lower extremity edema. Neuro: Awake, alert, oriented x3. No gross motor or sensory deficits. Cranial nerves II through XII intact. Gait not assessed. laboratory and microbiology Laboratory Tests 02/27/24 08:50 Test 02/27/24 08:50 Range/Units Serum Glucose 167 H 74-106 mg/dL Assessment/Plan Impression: Acute hypoxic respiratory failure Right pneumothorax status post chest tube placement COPD Asthma Obesity with a BMI of 33.6 Atelectasis DM type II with hyperglycemia Elevated d-dimer Events: Remains on supplemental oxygen, 3 LPM NC Taper O2 as tolerated CXR demonstrates no definite right pneumothorax. Chest tube in place. New airspace consolidation in the right mid to lower lung. Continue bronchodilators Incentive spirometry Continue IV steroids - wheezing Antibiotics Chest tube shows no air leak. Monitor output Get chest x-ray in the AM for interval changes. Pain control Avoid oversedation Labs and imaging reviewed. Rest of plan as noted below. Plan: chest tube in place Chest tube to -20 cmH2O continuous LWS. CXR demonstrates right chest tube in place with right lung re-expansion. Monitor for air leak. Daily CXR Supplemental o2 Keep o2 sat above 92% IS for atelectasis Pain control Avoid oversedation Accu-Cheks, ISS Elevated d-dimer, likely reactive due to pneumothorax. DVT prophylaxis- Lovenox Prognosis: Poor given multiple comorbidities. Rest of plan per hospitalist and other consultants. Thank you Dr. Montesinos/LIA Carrington for allowing me to participate in this patient's care. Further recommendations will depend on patient's clinical course. Please do not hesitate to contact me if you have any questions or concerns. This medical document was created using an electronic medical record system with [employer] dictation system. Although this document has been carefully reviewed, there may still be some phonetic and typographical errors. These areas are purely typographical due to imperfections of the software programs, and do not reflect any compromise in the patient's medical care. Plan discussed with: Patient, Other (RN Summer) WADE PATEL MD Feb 28, 2024 21:19
[2024-02-28] MEDS: DOCUSATE SOD 100 MG CAP PO SCH (21:50)
[2024-02-28] MEDS: ATORVASTATIN 20 MG TAB PO SCH (21:50)
[2024-02-28 23:23] LABS: Basophils # (auto) 0 10 ^3/uL (0-0.2); Basophils % (auto) 0.3 % (0.0-2.0); Eosinophils # (auto) 0 10 ^3/uL (0-0.8); Hematocrit 44.6 % (36.0-46.0); Hemoglobin 14.8 g/dL (12.2-16.2); Lymphocytes # (auto) 0.9 10 ^3/uL (0.4-5.4); Lymphocytes % (auto) 13.9 % (10.0-50.0); Mean Corpuscular Hgb Conc. 33.2 g/dL (32.0-36.0); Mean Corpuscular Volume 90.3 fL (80.0-100.0); Monocytes # (auto) 0.7 10 ^3/uL (0-1.3); Neutrophils # (auto) 5.1 10 ^3/uL (1.6-8.6); Neutrophils % (auto) 75.8 % (37.0-80.0); Nucleated Red Blood Cells % 0.1 %; Platelet Count (auto) 200 10^3/uL (140-450); Red Blood Cells 4.93 10^6/uL (4.0-5.20); Red Cell Distribution Width 15.1 % (11.8-14.3); White Blood Cell 6.7 10^3/uL (4.4-10.8)
[2024-02-28 23:24] LABS: Hematocrit 44.2 % (36.0-46.0); Hemoglobin 14.7 g/dL (12.2-16.2)
[2024-02-28 23:38] LABS: Alkaline Phosphatase 94 U/L (46-116)
[2024-02-28 23:39] LABS: Alanine Aminotransferase 16 U/L (7-40); Albumin 4.5 g/dL (3.2-4.8); Anion Gap 8 (5-15); Aspartate Aminotransferase 21 U/L (13-40); BUN/Creatinine Ratio 28.9 (10.0-20.0); Bilirubin, Total 0.7 mg/dL (0.2-1.0); Blood Urea Nitrogen 26 mg/dL (9-23); Calcium 10.4 mg/dL (8.7-10.4); Carbon Dioxide 27 mmol/L (20-31); Chloride 105 mmol/L (98-107); Glucose 209 mg/dL (74-106); Potassium 4.2 mmol/L (3.5-5.1); Sodium 140 mmol/L (136-145); Total Protein 7.1 g/dL (5.7-8.2)
[2024-02-29] VITALS (81 sets, daily range): BP systolic 95–130; BP diastolic 59–89; PULSE 62–131; RESP 12–31; TEMP 97.7–98.9; O2SAT 89–100
--- NOTE | 2024-02-29 00:31 | DVH ---
EXAM: XY CHEST XRAY 1 VIEW CLINICAL HISTORY: R/O PNEUMOTHORAX TECHNIQUE: Single AP view of the chest WID: COMPARISON: XY CHEST XRAY 1 VIEW on DOS: 02/28/24 FINDINGS: Lines and tubes: Right thoracostomy tube in place projects over the right mid to lower lung. Defibril lator pads project over the right upper chest and left upper quadrant. Chest: The heart size and pulmonary vasculature is within normal limits. Calcified plaque projects over the aortic arch. No definite right pneumothorax. There is a new airspace consolidation in the right mid to lower lung. Left lung is clear. The osseous structures are grossly intact. Multilevel thoracic spondylosis. Subcutaneous emphysema in the right lateral chest wall IMPRESSION: 1. No definite right pneumothorax with a right chest tube in place. 2. New airspace consolidation in the right mid to lower lung which could reflect hemorrhage, pneumoni a, or atelectasis
--- NOTE | 2024-02-29 03:58 | RESUS ---
CODE ASSIST ASSESSSMENT Initial Information Code Assist Date: Feb 28, 2024 Code Assist Time: 22:10 Location of Arrest: [facility] Room [facility] 245B Provider Name DR CORNEJO Time Notified: 22:10 Time PMD returned call: 22:10 Crash Cart Opened and Supplies: Yes Situation Staff concerned/worried, speci: HR >130, SBP <90 or 10 from baseli Situation comment: PT C/O OF RIGHT SIDE CHEST PAIN, WHEN NURSE TURNED HER SHE WENT INTO SVT. ON ARRIVAL OF CODE ASSIST TEAM PTS VS HR 226 BP 62/43 SAT 90, PT EVALUATED BY DR CORNEJO, PT CARDIOVERTED WITH 120 JOULS, VS POST SHOCK HR 138 BP130/94. PT WAS KEPT ON TELEMETRY, CXR, EKG AND H/H ORDERED. Background Background: 69 y.o female admitted on 02/25 with PMH of COPD, asthma, DM, HTN, HDL, and GERD, presents to the ED for a chief complaint of SOB associated with a cough that started 2 days ago. Patient reports using 1.5 liters of oxygen at home via NC, has no relief and worsens with laying flat. Patient denies any fever, chills, nausea, vomiting. Patient presents to the ED hypertensive and SVT rhythm. pt has a right side chest tube. Assessment Temperature (Fahrenheit): 98.1 Blood Pressure Systolic: 132 Blood Pressure Diastolic: 86 Respiratory Rate: 22 O2 Sat by Pulse Oximetry: 98 Assessment comment: POST SHOCK PT AAOX4 RESPIRATIONS EVEN REGULAR STILL C/O OF RIGHT SIDED CHEST PAIN. Recommendations/Interventions Procedures: CXR Portable, Cardioversion Outcome Outcome: Problem Resolved Follow up Report Follow up Report PT WAS TRANSFERRED TO [facility] LATER. Team Members Team Members DR. CORNEJO, SHANTAL AREVALO RN HS, HANNAH CHARGE ICU, АЛЕКСАНДР CHARGE NURSE, WNINIE RN, TASHA RT, JAMES RT SHANTAL PEÑA Feb 29, 2024 03:58
--- NOTE | 2024-02-29 07:21 | DVH ---
CLINICAL INFORMATION: 69 years old, Female; interval changes in pneumothorax. TECHNIQUE: Single AP portable chest radiograph was obtained. COMPARISON: XY CHEST XRAY 1 VIEW on DOS: 02/28/24, XY CHEST XRAY 1 VIEW on DOS: 02/28/24, XY CHEST XR AY 1 VIEW on DOS: 02/27/24 FINDINGS: Stable positioning of the right chest tube. No residual pneumothorax visualized. Similar-appearing op acities in the right lung, most prominent of the right mid lung region, which were new on the previou s exam. No other significant interval change. Subcutaneous emphysema in the right chest wall also not ed, similar to the prior exam. IMPRESSION: 1. Stable positioning of the right chest tube. No pneumothorax visualized. 2. Right lung opacities are stable compared to the most recent exam.
[2024-02-29] MEDS: LEVALBUTEROL HCL 1.25 MG/3 ML NEB NEB SCH (07:30)
[2024-02-29] MEDS: ENOXAPARIN SOD 40 MG/0.4 ML SYRINGE SC SCH (08:14)
--- NOTE | 2024-02-29 10:21 | DVH ---
Procedure: CT CHEST WITHOUT CONTRAST Reason for study/Clinical History: 69 years old, Female; Pneumothorax, s/p chest tube. Comparison Study: None available at time of dictation. Exam Date: 02/29/2024 09:30 AM TECHNIQUE: Multidetector CT of the chest was performed from the lung apices to the upper abdomen with out the use of intravenous contract. Axial, coronal and sagittal multiplanar reformats were performed . Radiation dose Information: CT Dose: CTDI volume is 24.01 mGy. Dose-length product is 886.02 mGy*cm The dose indicators for CT are the volume computed Tomography (CT) dose Index (CTDIvol) and the dose Length product (DLP), and are measured in units of mGy and mGy-cm, respectively. These indicators are not patient dose, but values generated from the CT scanner acquisition factors. The report includes radiation exposure data for exposures received during this examination. FINDINGS: Lower neck: Thyroid is enlarged and heterogeneous with cysts or nodules. Lungs: Atelectasis and consolidation in the right lung. Heart/Vascular Structures: Normal heart size. No pericardial effusion. Lymph Nodes: No adenopathy Pleura: Large right hydropneumothorax with a chest tube in place. Musculoskeletal: No acute osseous abnormality. Soft tissues: Subcutaneous emphysema in the right chest wall. Upper abdomen: Bilateral renal cysts. IMPRESSION: 1. Large right hydropneumothorax with a chest tube in place. Chest tube is largely within the right m inor fissure. If there is inadequate drainage consider additional placement of pigtail catheters with CT guidance. 2. Atelectasis and consolidation in the right lung could be infectious / inflammatory. Clinical corre lation and continued follow-up is recommended. 3. Enlarged and heterogeneous thyroid. Consider thyroid ultrasound. Radiation optimization: All CT scans at this facility use at least one of these dose optimization shin hniques: Automated exposure control mA and/or kV adjustment per patient size (includes targeted exams where dose is matched to clinical indication) or iterative reconstruction. HS:Y
[2024-02-29 10:46] LABS: Free T3 1.76 pg/mL (2.3-4.2)
[2024-02-29 10:48] LABS: Free T4 (Free Thyroxine) 1.02 ng/dL (0.89-1.76)
--- NOTE | 2024-02-29 11:37 | DVHPN2 ---
Progress Note - Dictate Date Seen: Feb 29, 2024 Medical Necessity Reason Pt with a Central, PICC or Fol: No vital signs Vital Sign Date Time Temp Pulse Resp B/P (MAP) Pulse Ox O2 Delivery O2 Flow Rate FiO2 02/29/24 09:16 116 111/80 02/29/24 08:45 20 02/29/24 08:30 94 02/29/24 08:00 Nasal Cannula* 5 40 02/29/24 08:00 97.7 97.7 Total Intake and Output 02/28/24 02/28/24 02/29/24 15:00 23:00 07:00 Intake Total 778 ml 30 ml Output Total 1300 ml 175 ml Balance -522 ml -145 ml medications Current Medications Medications Dose Ordered Sig/Kourtney Route Start Time Stop Time Status Last Admin Dose Admin Acetaminophen/ Hydrocodone Bitart 1 tab Q4HP PRN PO 02/26/24 17:15 02/29/24 10:57 1 TAB Ondansetron HCl 4 mg Q4HP PRN IV 02/26/24 17:15 02/26/24 21:55 4 MG Acetaminophen 650 mg Q6HP PRN PO 02/26/24 17:15 02/28/24 21:50 650 MG Morphine Sulfate 2 mg Q4HPRN PRN IV 02/26/24 17:15 02/29/24 08:15 2 MG Nitroglycerin 0.4 mg Q5MINP PRN SL 02/26/24 17:15 Morphine Sulfate 2 mg Q30M PRN IV 02/26/24 17:15 Ipratropium [place] 0.5 mg Q6HR NEB 02/27/24 12:45 02/29/24 07:30 0.5 MG Methylprednisolone Sodium Succinate 40 mg Q8HR IV 02/27/24 14:00 02/29/24 05:51 40 MG Atorvastatin Calcium 20 mg HS PO 02/28/24 22:00 02/28/24 21:50 20 MG Furosemide 20 mg DAILY PO 02/28/24 10:00 02/29/24 08:16 20 MG Gabapentin 300 mg TID PO 02/27/24 14:00 02/29/24 05:51 300 MG Pantoprazole Sodium 40 mg DAILY@0600 PO 02/28/24 06:00 02/29/24 05:51 40 MG Azithromycin 500 mg DAILY PO 02/28/24 10:00 1/1/25 09:59 02/29/24 08:15 500 MG Diagnostic Test (Pha) 1 strip ACHS 02/28/24 11:30 02/29/24 06:22 1 STRIP Insulin Human Regular HS SC 02/28/24 22:00 02/28/24 21:51 4 UNITS Insulin Human Regular AC SC 02/28/24 11:30 02/29/24 06:21 2 UNITS Dextrose 50 ml UD PRN IV 02/28/24 10:30 Enoxaparin Sodium 40 mg DAILY SC 02/29/24 10:00 02/29/24 08:14 40 MG Docusate Sodium 100 mg BID PO 02/28/24 22:00 02/29/24 08:15 100 MG Levalbuterol HCl 0.625 mg Q6HR NEB 02/29/24 06:00 02/29/24 07:30 0.625 MG Metoprolol Tartrate 50 mg BID PO 02/29/24 22:00 UNV objective General Appearance: alert, no distress HEENT: EOMI, PERRLA, normal external inspect of ears, no icterus, no nasal drainage Neck: no carotid bruit, no jugular venous distention (JVD), no lymphadenopathy Chest: normal thorax Respiratory: clear to auscultation, normal air movement Cardiovascular: regular rate and rhythm, no diastolic murmur, no jugular venous distention (JVD), no rub, no systolic murmur Abdominal: soft, no hepatomegaly, no mass, no splenomegaly, no tenderness Genitourinary: grossly normal external Musculoskeletal: no joint tenderness, no swelling Extremities: normal pulses, no calf tenderness, no clubbing, no cyanosis, no edema Skin: no bruising, no jaundice, no rash Neurological: alert, No focal deficit laboratory and microbiology Laboratory Tests 02/28/24 23:05 Test 02/28/24 23:05 Range/Units Serum Glucose 209 H 74-106 mg/dL Problem List 1. SOB r/t pneumothorax Monitor, pulmonary consult 2. S/p chest tube placement Monitor 3. GERD Monitor, PPI 4. HLD Monitor, restart home meds 5. COPD Monitor, pulmonary consult 6. SVT Monitor EKG, cardiology consult, beta blockers 7. Elevated D dimer Monitor 8. Pulmonary HTN Monitor, restart home meds Assessment/Plan Subjective: Patient is awake and alert Objective: Patient was transferred into [facility] yesterday. 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 Patient went SVT, heart rate up to 260. Her blood pressure dropped to the 60s. Patient was cardioverted by ER physician. Patient was admitted on February 26, 2024 for shortness of breath. Patient was found to have a right pneumothorax. Chest tube was placed. CT imaging shows a large right hydropneumothorax. Pulmonary has been reconsulted. Plan: Increase beta-iam for heart rate control. Cardiology recommendations appreciated. No leukocytosis or signs of infection can be found. CT is questioning possible inflammatory process. Plan is obtain lactate level. Obtain CRP. Obtain tumor marker labs to rule out any type of malignancy. Chest tube management per pulmonary. Had cardiology recommendations appreciated for SVT. Plan discussed with: Patient, Other DALJIT JIM NP Feb 29, 2024 11:37
[2024-02-29] MEDS: fentaNYL CITRATE 100 MCG/2 ML VL IV ONE (14:03)
[2024-02-29] MEDS: MIDAZOLAM HCL 2MG/2ML 2ml VIAL (1mg/ml) IV ONE (14:04)
[2024-02-29] MEDS: diphenhdrAMINE HCL 50 MG/1 ML VL IV ONE (14:04)
[2024-02-29] MEDS: DOXYCYCLINE 100 MG TAB/CAP PO ONE (14:24)
[2024-02-29] MEDS: cefTRIAXone 1GM/50ML D5W 50 ML IV SCH (14:25)
[2024-02-29] MEDS: METOPROLOL TARTRATE 25 MG TAB PO ONE (14:25)
--- NOTE | 2024-02-29 16:00 | DVHSR ---
APPROVED REPORT EXAM: Two-dimensional and M-mode echocardiogram with Doppler and color Doppler. Blood Pressure: 136/70 mmHg INDICATION SOB RISK FACTORS Height: 5'6, Weight: 208 DIMENSIONS LVDd3.7 (3.8-5.7cm)LA (2D)3.1 (1.9-4.0cm)Aortic Root3.2 (2.0-3.7cm) LVDs2.8 (2.5-4.0cm)LA (MM) (1.9-4.0cm)Aortic Cusp Exc1.5 (1.5-2.0cm) EF (%) 50.0 (55-70%)Rt. Atrium3.6 (1.9-4.0cm)Asc. Aorta3.3 cm IVSd1.1 (0.7-1.1cm)RV (D) (1.8-2.4cm) PWd0.9 (0.7-1.1cm) Mitral Valve MitralMitral Stenosis E wave0.51m/sMV Mean GR.mmHg A wave0.53m/sMV Peak GR.mmHg E/A ratio1.02D MVAcm2 DECEL [id number] 1/2 [place] Aortic Valve Aortic ValveAortic Stenosis V11.02m/Roger Mean GR.3mmHg V21.10m/Roger Peak GR.5mmHg LVOT Diameter2.1 (1.8-2.4cm)Doppler AVA3.21cm2 Pulmonic Valve V20.98m/s Tricuspid Valve TR Velocity3.00m/s [id number] Other Information Quality : TECHNICALLY DIFFICULTRhythm : Conclusion Left ventricle: Left ventricle was normal sized with normal systolic function. LVEF was 65-70%. Th ere was no gross wall motion abnormality. Right ventricle was normal size with normal systolic function. Both atria were normal size. Aortic valve: Aortic valve was trileaflet. There was no aortic insufficiency/stenosis. There was tr ivial tricuspid and mitral regurgitation. Pulmonic valve was not well visualized. Right ventricular systolic pressure was assessed around 40 mm Hg. There was no pericardial effusion. IVC was normal size with normal respiratory variation.
--- NOTE | 2024-02-29 17:28 | DVHPN2 ---
Progress Note - Dictate Date Seen: Feb 29, 2024 Medical Necessity Reason Pt with a Central, PICC or Fol: No vital signs Vital Sign Date Time Temp Pulse Resp B/P (MAP) Pulse Ox O2 Delivery O2 Flow Rate FiO2 02/29/24 16:25 94 21 105/76 02/29/24 14:00 95 Nasal Cannula* 5 40 02/29/24 08:00 97.7 97.7 Total Intake and Output 02/28/24 02/28/24 02/29/24 15:00 23:00 07:00 Intake Total 778 ml 30 ml Output Total 1300 ml 175 ml Balance -522 ml -145 ml medications Current Medications Medications Dose Ordered Sig/Kourtney Route Start Time Stop Time Status Last Admin Dose Admin Acetaminophen/ Hydrocodone Bitart 1 tab Q4HP PRN PO 02/26/24 17:15 02/29/24 10:57 1 TAB Ondansetron HCl 4 mg Q4HP PRN IV 02/26/24 17:15 02/26/24 21:55 4 MG Acetaminophen 650 mg Q6HP PRN PO 02/26/24 17:15 02/28/24 21:50 650 MG Morphine Sulfate 2 mg Q4HPRN PRN IV 02/26/24 17:15 02/29/24 16:25 2 MG Nitroglycerin 0.4 mg Q5MINP PRN SL 02/26/24 17:15 Morphine Sulfate 2 mg Q30M PRN IV 02/26/24 17:15 Ipratropium [place] 0.5 mg Q6HR NEB 02/27/24 12:45 02/29/24 12:42 0.5 MG Methylprednisolone Sodium Succinate 40 mg Q8HR IV 02/27/24 14:00 02/29/24 14:25 40 MG Atorvastatin Calcium 20 mg HS PO 02/28/24 22:00 02/28/24 21:50 20 MG Furosemide 20 mg DAILY PO 02/28/24 10:00 02/29/24 08:16 20 MG Gabapentin 300 mg TID PO 02/27/24 14:00 02/29/24 14:24 300 MG Pantoprazole Sodium 40 mg DAILY@0600 PO 02/28/24 06:00 02/29/24 05:51 40 MG Diagnostic Test (Pha) 1 strip ACHS 02/28/24 11:30 02/29/24 12:00 1 STRIP Insulin Human Regular HS SC 02/28/24 22:00 02/28/24 21:51 4 UNITS Insulin Human Regular AC SC 02/28/24 11:30 02/29/24 06:21 2 UNITS Dextrose 50 ml UD PRN IV 02/28/24 10:30 Enoxaparin Sodium 40 mg DAILY SC 02/29/24 10:00 02/29/24 08:14 40 MG Docusate Sodium 100 mg BID PO 02/28/24 22:00 02/29/24 08:15 100 MG Levalbuterol HCl 0.625 mg Q6HR NEB 02/29/24 06:00 02/29/24 12:42 0.625 MG Metoprolol Tartrate 50 mg BID PO 02/29/24 22:00 Ceftriaxone Sodium 50 ml @ 100 mls/hr DAILY@09 IV 02/29/24 11:45 02/29/24 14:25 100 MLS/HR Doxycycline Monohydrate 100 mg Q12HR PO 02/29/24 22:00 Cancel Budesonide 0.5 mg BID NEB 02/29/24 22:00 Azithromycin 250 ml @ 125 mls/hr DAILY IV 03/01/24 10:00 laboratory and microbiology Laboratory Tests 02/28/24 23:05 Test 02/28/24 23:05 Range/Units Serum Glucose 209 H 74-106 mg/dL Assessment/Plan This is a 69-year old female who initially presented (02/26/2024) with shortness of breath and cough with associated orthopnea for approximately 2 days prior to initial arrival. Upon ED arrival, initial twelve lead electrocardiogram was performed revealing sinus tachycardia at 104 bpm with no acute ischemic changes. Initial HS troponin level was found normal at <3 with subsequent level of <3. BNP level was found normal at 12.74. Covid-19, Influenza A/B were found negative. WBC found normal at 5.6. Initial chest x-ray revealed presence of a moderate sized pneumothorax involving the right lung which patient underwent right sided chest tube placement. Subsequent chest x-ray post chest tube placement revealed interval improvement of right pneumothorax. Repeat chest imaging (02/27/2024) revealed presence of a small right apical pneumothorax with chest tube in situ which Pulmonology services have been involved for management. While within the ED, patient was noted to have an episode of tachycardia which upon EKG analysis, there is presence of a narrow-complex tachycardia at 191 bpm with questionable presence of 2:1 atrial flutter which as per ED provider note, patient spontaneously converted back to sinus rhythm. Repeat EKG at the time post spontaneous conversion revealed sinus tachycardia at 105bpm. Initial potassium level found normal at 4.0 with a magnesium level of 2.0. TSH level was found to be 0.49. Current LDL is 145 with an A1C of 6.8. Cardiology services have now been involved for cardiac aspects of care. On tele floor, patient had episode of tachycarrhythmia and she was cardioverted for SVT Past medical history includes obesity, diabetes mellitus, asthma, GERD, hypertension, hyperlipidemia, pulmonary hypertension, old history of hysterectomy and left knee replacement. She does smoke cigarettes. She occasionally uses marijuana. She occasionally drinks alcohol Echocardiogram (08/2023) revealed Left ventricle: Left ventricle is normal size with normal systolic function. LVEF was 65 to 70%. There was no gross wall motion abnormality. Left atrium was normal size. Right-sided chambers were dilated. Aortic valve was trileaflet. There was no aortic insufficiency/stenosis. There was trivial mitral regurgitation. There was mild tricuspid regurgitation. Pulmonary valve was not well-visualized Right ventricular systolic pressure was assessed around 65 mmHg. IVC was dilated. There was no pericardial effusion. venous duplex was negative for lower ext dvt TSH: 0.48, T4 (free): 1.02 (wnl), T3 (free): 1.76 (mildly low) (findings are in favor of subclinical hyperthyroidism) Echo reported: Left ventricle: Left ventricle was normal sized with normal systolic function. LVEF was 65-70%. There was no gross wall motion abnormality. Right ventricle was normal size with normal systolic function. Both atria were normal size. Aortic valve: Aortic valve was trileaflet. There was no aortic insufficiency/stenosis. There was trivial tricuspid and mitral regurgitation. Pulmonic valve was not well visualized. Right ventricular systolic pressure was assessed around 40 mm Hg. There was no pericardial effusion. IVC was normal size with normal respiratory variation. Assessment: Acute hypoxic respiratory failure, secondary to right-sided pneumothorax Right-sided pneumothorax, status post chest tube placement Narrow-complex tachycardia, SVT s/p cardioversion for SVT Abnormal D-Dimer (0.59), likely refractory to pneumothorax Abnormal TSH level (0.49), rule out thyroid dysfunction: subclinical hyperthyroidism Pulmonary hypertension Nicotine dependence Diabetes mellitus II Asthma, history of COPD, history of Hyperlipidemia Hypertension Obesity Plan: Manage in ICU ([facility]) As patient initially presented and was noted to have an episode of narrow complex tachycardia, cardiology services were involved for its evaluation. Upon analysis of the EKG during the event, tracing reveals a narrow complex tachycardia at 191 bpm in favor of SVT spontaneously as she converted without intervention. Repeated SVT which required cardioversion. On Metoprolol for now (dose increased). Patient will need to undergo long-term event monitoring on an outpatient basis to further observe for such occult arrhythmias upon discharge. During the interim, recommendation is to proceed with close rate and rhythm surveillance, sustain potassium levels greater than 4.0, sustain magnesium levels greater than 2.0. Will proceed to follow from a cardiac perspective. Further recommendations as per clinical course and the above ordered findings. Metoprolol Tartrate 50mg twice daily for now , if needed you can further taper up Consider further event monitoring (can be arranged outpatient) Follow up renal function/electrolytes and correct abnormalities Management of underlying pneumothorax as per Pulmonology Counseled on importance of tobacco cessation Proceed with close rate and rhythm surveillance Proceed with close hemodynamic surveillance Proceed with optimized blood pressure control Transfuse to sustain HGB level above 7.0 Sustain Magnesium level greater than 2.0 Sustain Potassium level greater than 4.0 Follow up renal function and electrolytes Management in telemetry Follow up Pulmonology recommendations Will proceed to follow from a cardiac perspective Further recommendations per clinical progression All available diagnostic labs, EKG's, and images were personally reviewed Plan of care discussed with and agreed upon by patient / primary RN Prognosis: Guarded Thank you for allowing me to participate in the care of this patient. Further recommendations based on patients clinical course and progression, primary attending, and other consultants. Will continue to follow with primary attending. If you have any questions or concerns, please do not hesitate to contact me. A total of 75 minutes was spent reviewing the patient record, examining the patient, making a diagnostic and therapeutic plan, discussing this plan with medical personnel, following up on diagnostic studies and following the patient for clinical stability excluding any and all procedures. At least 50% of this time was spent in direct, [id number] contact. Plan discussed with: Patient, Other (nurse) RODNEY GRISSOM MD Feb 29, 2024 17:28
[2024-02-29] MEDS: METOPROLOL TARTRATE 25 MG TAB PO SCH (21:10)
[2024-02-29] MEDS ORDERED: DOXYCYCLINE 100 MG TAB/CAP PO SCH (22:00)
[2024-02-29] MEDS: BUDESONIDE (INHALATION) 0.5 MG/2 ML NEB NEB SCH (22:34)
--- NOTE | 2024-02-29 23:40 | DVHPN2 ---
Progress Note - Dictate Date Seen: Feb 29, 2024 Medical Necessity Reason Pt with a Central, PICC or Fol: Yes The following are medically ne: Marrufo Catheter Reason for marrufo catheter: Strict I&O Subjective Patient seen and examined at bedside. Remains on supplemental oxygen Overnight events reviewed. vital signs Vital Sign Date Time Temp Pulse Resp B/P (MAP) Pulse Ox O2 Delivery O2 Flow Rate FiO2 02/29/24 23:00 64 18 123/81 (95) 95 02/29/24 22:34 Nasal Cannula 2.0 02/29/24 22:34 28 02/29/24 20:30 98.8 98.8 Total Intake and Output 02/28/24 02/28/24 02/29/24 15:00 23:00 07:00 Intake Total 778 ml 30 ml Output Total 1300 ml 175 ml Balance -522 ml -145 ml medications Current Medications Medications Dose Ordered Sig/Kourtney Route Start Time Stop Time Status Last Admin Dose Admin Acetaminophen/ Hydrocodone Bitart 1 tab Q4HP PRN PO 02/26/24 17:15 02/29/24 10:57 1 TAB Ondansetron HCl 4 mg Q4HP PRN IV 02/26/24 17:15 02/26/24 21:55 4 MG Acetaminophen 650 mg Q6HP PRN PO 02/26/24 17:15 02/28/24 21:50 650 MG Morphine Sulfate 2 mg Q4HPRN PRN IV 02/26/24 17:15 02/29/24 22:28 2 MG Nitroglycerin 0.4 mg Q5MINP PRN SL 02/26/24 17:15 Morphine Sulfate 2 mg Q30M PRN IV 02/26/24 17:15 Ipratropium [place] 0.5 mg Q6HR NEB 02/27/24 12:45 02/29/24 18:10 0.5 MG Methylprednisolone Sodium Succinate 40 mg Q8HR IV 02/27/24 14:00 02/29/24 21:09 40 MG Atorvastatin Calcium 20 mg HS PO 02/28/24 22:00 02/29/24 21:10 20 MG Furosemide 20 mg DAILY PO 02/28/24 10:00 02/29/24 08:16 20 MG Gabapentin 300 mg TID PO 02/27/24 14:00 02/29/24 21:11 300 MG Pantoprazole Sodium 40 mg DAILY@0600 PO 02/28/24 06:00 02/29/24 05:51 40 MG Diagnostic Test (Pha) 1 strip ACHS 02/28/24 11:30 02/29/24 21:11 1 STRIP Insulin Human Regular HS SC 02/28/24 22:00 02/29/24 21:11 3 UNITS Insulin Human Regular AC SC 02/28/24 11:30 02/29/24 18:14 3 UNITS Dextrose 50 ml UD PRN IV 02/28/24 10:30 Enoxaparin Sodium 40 mg DAILY SC 02/29/24 10:00 02/29/24 08:14 40 MG Docusate Sodium 100 mg BID PO 02/28/24 22:00 02/29/24 21:10 100 MG Levalbuterol HCl 0.625 mg Q6HR NEB 02/29/24 06:00 02/29/24 18:12 0.625 MG Metoprolol Tartrate 50 mg BID PO 02/29/24 22:00 02/29/24 21:10 50 MG Ceftriaxone Sodium 50 ml @ 100 mls/hr DAILY@09 IV 02/29/24 11:45 02/29/24 14:25 100 MLS/HR Doxycycline Monohydrate 100 mg Q12HR PO 02/29/24 22:00 Cancel Budesonide 0.5 mg BID NEB 02/29/24 22:00 02/29/24 22:34 0.5 MG Azithromycin 250 ml @ 125 mls/hr DAILY IV 03/01/24 10:00 objective Gen.: Patient lying in bed in no apparent distress. On supplemental oxygen. Head: Normocephalic, atraumatic. Eyes: EOMI/PERRLA. Ears: Normal hearing. Normal anatomy. Neck/trachea: Trachea midline, supple. Nose: Normal external anatomy. Mouth: Moist mucous membranes. Chest: Decreased air entry bilaterally. Wheezing. No rhonchi. Cardiovascular: Positive S1, positive S2. Regular rate and rhythm. Abdomen: Positive bowel sounds in all 4 quadrants. Soft, non-tender, non- distended. : Deferred. Rectal: Deferred. Skin: Warm, dry. Intact. Extremities: 2+ radial pulses bilaterally. No lower extremity edema. Neuro: Awake, alert, oriented x3. No gross motor or sensory deficits. Cranial nerves II through XII intact. Gait not assessed. laboratory and microbiology Laboratory Tests 02/28/24 23:05 Test 02/28/24 23:05 Range/Units Serum Glucose 209 H 74-106 mg/dL Assessment/Plan Impression: Acute hypoxic respiratory failure Right pneumothorax status post chest tube placement COPD Asthma Obesity with a BMI of 33.6 Atelectasis DM type II with hyperglycemia Elevated d-dimer Events: Remains on supplemental oxygen, 3 LPM NC Taper O2 as tolerated CT chest reviewed. Chest tube noted to be within the right minor fissure. Plan to place small-bore chest tube - Obtain consent Limited chest ultrasound shows no right lung sliding. Continue bronchodilators IV steroids Start Solu-Medrol 40 mg q.8 hours Continue IV antibiotics Incentive spirometry Patient noted to be in SVT overnight. Pain control Avoid oversedation Labs and imaging reviewed. Rest of plan as noted below. Plan: chest tube in place Chest tube to -20 cmH2O continuous LWS. CXR demonstrates right chest tube in place with right lung re-expansion. Monitor for air leak. Daily CXR Supplemental o2 Keep o2 sat above 92% IS for atelectasis Pain control Avoid oversedation Accu-Cheks, ISS Elevated d-dimer, likely reactive due to pneumothorax. DVT prophylaxis- Lovenox Prognosis: Poor given multiple comorbidities. Condition: Critical Rest of plan per hospitalist and other consultants. A total of 35 minutes of critical care time was spent reviewing the patient record, examining the patient, making a diagnostic and therapeutic plan, discussing this plan with the medical personnel, following up on diagnostic studies and following the patient for clinical stability excluding any and all procedures. At least 50% of this time was spent in direct, [id number] contact. Thank you Dr. Montesinos/LIA Carrington for allowing me to participate in this patient's care. Further recommendations will depend on patient's clinical course. Please do not hesitate to contact me if you have any questions or concerns. This medical document was created using an electronic medical record system with [employer] system. Although this document has been carefully reviewed, there may still be some phonetic and typographical errors. These areas are purely typographical due to imperfections of the software programs, and do not reflect any compromise in the patient's medical care. Plan discussed with: Patient, Other (STEVE Gonsalves) Critical Care Time(min): 35 WADE PATEL MD Feb 29, 2024 23:40
[2024-03-01] VITALS (51 sets, daily range): BP systolic 108–122; BP diastolic 53–85; PULSE 63–90; RESP 13–28; TEMP 97.8–99.1; O2SAT 76–98
--- NOTE | 2024-03-01 05:08 | DVH ---
CHEST RADIOGRAPH Indication: interval changes in pneumothorax Technique: Single frontal view of the chest was obtained COMPARISON: XY CHEST XRAY 1 VIEW on DOS: 02/29/24, XY CHEST XRAY 1 VIEW on DOS: 02/28/24, XY CHEST XR AY 1 VIEW on DOS: 02/28/24, XY CHEST XRAY 1 VIEW on DOS: 02/27/24, XY CHEST XRAY 1 VIEW on DOS: 02/25 FINDINGS: Lines and Tubes: Right chest tube in satisfactory position. Lungs: Right middle lobe airspace disease. Diffuse congestion. Pleura: No effusion. No pneumothorax. Cardiomediastinal contours: Unremarkable Bones: Subcutaneous emphysema along the right chest wall. IMPRESSION: No appreciable pneumothorax with right chest tube in-situ.
--- NOTE | 2024-03-01 07:38 | DVHPN2 ---
Progress Note - Dictate Date Seen: Mar 01, 2024 Medical Necessity Reason Pt with a Central, PICC or Fol: Yes The following are medically ne: Marrufo Catheter Reason for marrufo catheter: Strict I&O vital signs Vital Sign Date Time Temp Pulse Resp B/P (MAP) Pulse Ox O2 Delivery O2 Flow Rate FiO2 03/01/24 07:09 77 15 108/85 03/01/24 07:04 98 03/01/24 06:56 Nasal Cannula 2.0 03/01/24 06:56 28 03/01/24 04:14 97.8 97.8 Total Intake and Output 02/29/24 02/29/24 03/01/24 15:00 23:00 07:00 Intake Total 50 ml 200 ml 120 ml Output Total 365 ml 500 ml Balance 50 ml -165 ml -380 ml medications Current Medications Medications Dose Ordered Sig/Kourtney Route Start Time Stop Time Status Last Admin Dose Admin Acetaminophen/ Hydrocodone Bitart 1 tab Q4HP PRN PO 02/26/24 17:15 02/29/24 10:57 1 TAB Ondansetron HCl 4 mg Q4HP PRN IV 02/26/24 17:15 02/26/24 21:55 4 MG Acetaminophen 650 mg Q6HP PRN PO 02/26/24 17:15 02/28/24 21:50 650 MG Morphine Sulfate 2 mg Q4HPRN PRN IV 02/26/24 17:15 03/01/24 06:36 2 MG Nitroglycerin 0.4 mg Q5MINP PRN SL 02/26/24 17:15 Morphine Sulfate 2 mg Q30M PRN IV 02/26/24 17:15 Ipratropium [place] 0.5 mg Q6HR NEB 02/27/24 12:45 03/01/24 06:55 0.5 MG Methylprednisolone Sodium Succinate 40 mg Q8HR IV 02/27/24 14:00 03/01/24 06:00 40 MG Atorvastatin Calcium 20 mg HS PO 02/28/24 22:00 02/29/24 21:10 20 MG Furosemide 20 mg DAILY PO 02/28/24 10:00 02/29/24 08:16 20 MG Gabapentin 300 mg TID PO 02/27/24 14:00 03/01/24 06:00 300 MG Pantoprazole Sodium 40 mg DAILY@0600 PO 02/28/24 06:00 03/01/24 06:00 40 MG Diagnostic Test (Pha) 1 strip ACHS 02/28/24 11:30 03/01/24 06:04 1 STRIP Insulin Human Regular HS SC 02/28/24 22:00 02/29/24 21:11 3 UNITS Insulin Human Regular AC SC 02/28/24 11:30 03/01/24 06:04 2 UNITS Dextrose 50 ml UD PRN IV 02/28/24 10:30 Enoxaparin Sodium 40 mg DAILY SC 02/29/24 10:00 02/29/24 08:14 40 MG Docusate Sodium 100 mg BID PO 02/28/24 22:00 02/29/24 21:10 100 MG Levalbuterol HCl 0.625 mg Q6HR NEB 02/29/24 06:00 03/01/24 06:55 0.625 MG Metoprolol Tartrate 50 mg BID PO 02/29/24 22:00 02/29/24 21:10 50 MG Ceftriaxone Sodium 50 ml @ 100 mls/hr DAILY@09 IV 02/29/24 11:45 02/29/24 14:25 100 MLS/HR Doxycycline Monohydrate 100 mg Q12HR PO 02/29/24 22:00 Cancel Budesonide 0.5 mg BID NEB 02/29/24 22:00 03/01/24 06:56 0.5 MG Azithromycin 250 ml @ 125 mls/hr DAILY IV 03/01/24 10:00 laboratory and microbiology Laboratory Tests 02/28/24 23:05 Test 02/28/24 23:05 Range/Units Serum Glucose 209 H 74-106 mg/dL Assessment/Plan This is a 69-year old female who initially presented (02/26/2024) with shortness of breath and cough with associated orthopnea for approximately 2 days prior to initial arrival. Upon ED arrival, initial twelve lead electrocardiogram was performed revealing sinus tachycardia at 104 bpm with no acute ischemic changes. Initial HS troponin level was found normal at <3 with subsequent level of <3. BNP level was found normal at 12.74. Covid-19, Influenza A/B were found negative. WBC found normal at 5.6. Initial chest x-ray revealed presence of a moderate sized pneumothorax involving the right lung which patient underwent right sided chest tube placement. Subsequent chest x-ray post chest tube placement revealed interval improvement of right pneumothorax. Repeat chest imaging (02/27/2024) revealed presence of a small right apical pneumothorax with chest tube in situ which Pulmonology services have been involved for management. While within the ED, patient was noted to have an episode of tachycardia which upon EKG analysis, there is presence of a narrow-complex tachycardia at 191 bpm with questionable presence of 2:1 atrial flutter which as per ED provider note, patient spontaneously converted back to sinus rhythm. Repeat EKG at the time post spontaneous conversion revealed sinus tachycardia at 105bpm. Initial potassium level found normal at 4.0 with a magnesium level of 2.0. TSH level was found to be 0.49. Current LDL is 145 with an A1C of 6.8. Cardiology services have now been involved for cardiac aspects of care. On tele floor, patient had episode of tachycarrhythmia and she was cardioverted for SVT Past medical history includes obesity, diabetes mellitus, asthma, GERD, hypertension, hyperlipidemia, pulmonary hypertension, old history of hysterectomy and left knee replacement. She does smoke cigarettes. She occasionally uses marijuana. She occasionally drinks alcohol Echocardiogram (08/2023) revealed Left ventricle: Left ventricle is normal size with normal systolic function. LVEF was 65 to 70%. There was no gross wall motion abnormality. Left atrium was normal size. Right-sided chambers were dilated. Aortic valve was trileaflet. There was no aortic insufficiency/stenosis. There was trivial mitral regurgitation. There was mild tricuspid regurgitation. Pulmonary valve was not well-visualized Right ventricular systolic pressure was assessed around 65 mmHg. IVC was dilated. There was no pericardial effusion. venous duplex was negative for lower ext dvt TSH: 0.48, T4 (free): 1.02 (wnl), T3 (free): 1.76 (mildly low) (findings are in favor of subclinical hyperthyroidism) Echo reported: Left ventricle: Left ventricle was normal sized with normal systolic function. LVEF was 65-70%. There was no gross wall motion abnormality. Right ventricle was normal size with normal systolic function. Both atria were normal size. Aortic valve: Aortic valve was trileaflet. There was no aortic insufficiency/stenosis. There was trivial tricuspid and mitral regurgitation. Pulmonic valve was not well visualized. Right ventricular systolic pressure was assessed around 40 mm Hg. There was no pericardial effusion. IVC was normal size with normal respiratory variation. Assessment: Acute hypoxic respiratory failure, secondary to right-sided pneumothorax Right-sided pneumothorax, status post chest tube placement Narrow-complex tachycardia, SVT s/p cardioversion for SVT Abnormal D-Dimer (0.59), likely refractory to pneumothorax Abnormal TSH level (0.49), rule out thyroid dysfunction: subclinical hyperthyroidism Pulmonary hypertension Nicotine dependence Diabetes mellitus II Asthma, history of COPD, history of Hyperlipidemia Hypertension Obesity Plan: Manage in ICU ([facility]AN) As patient initially presented and was noted to have an episode of narrow complex tachycardia, cardiology services were involved for its evaluation. Upon analysis of the EKG during the event, tracing reveals a narrow complex tachycardia at 191 bpm in favor of SVT spontaneously as she converted without intervention. Repeated SVT which required cardioversion. On Metoprolol for now (dose increased). Patient will need to undergo long-term event monitoring on an outpatient basis to further observe for such occult arrhythmias upon discharge. During the interim, recommendation is to proceed with close rate and rhythm surveillance, sustain potassium levels greater than 4.0, sustain magnesium levels greater than 2.0. Will proceed to follow from a cardiac perspective. Further recommendations as per clinical course and the above ordered findings. Metoprolol Tartrate 50mg twice daily for now , if needed you can further taper up Consider further event monitoring (can be arranged outpatient) Follow up renal function/electrolytes and correct abnormalities Management of underlying pneumothorax as per Pulmonology Counseled on importance of tobacco cessation Proceed with close rate and rhythm surveillance Proceed with close hemodynamic surveillance Proceed with optimized blood pressure control Transfuse to sustain HGB level above 7.0 Sustain Magnesium level greater than 2.0 Sustain Potassium level greater than 4.0 Follow up renal function and electrolytes Management in telemetry Follow up Pulmonology recommendations Will proceed to follow from a cardiac perspective Further recommendations per clinical progression All available diagnostic labs, EKG's, and images were personally reviewed Plan of care discussed with and agreed upon by patient / primary RN Prognosis: Guarded Thank you for allowing me to participate in the care of this patient. Further recommendations based on patients clinical course and progression, primary attending, and other consultants. Will continue to follow with primary attending. If you have any questions or concerns, please do not hesitate to contact me. A total of 75 minutes was spent reviewing the patient record, examining the patient, making a diagnostic and therapeutic plan, discussing this plan with medical personnel, following up on diagnostic studies and following the patient for clinical stability excluding any and all procedures. At least 50% of this time was spent in direct, icby-md-fyro contact. Plan discussed with: Patient, Other (nurse) RODNEY GRISSOM MD Mar 01, 2024 07:38
--- NOTE | 2024-03-01 08:30 | DVHPN2 ---
Progress Note - Dictate Date Seen: Mar 01, 2024 Medical Necessity Reason Pt with a Central, PICC or Fol: Yes The following are medically ne: Marrufo Catheter Reason for marrufo catheter: Strict I&O vital signs Vital Sign Date Time Temp Pulse Resp B/P (MAP) Pulse Ox O2 Delivery O2 Flow Rate FiO2 03/01/24 08:00 98.1 78 14 118/72 (87) 93 98.1 03/01/24 06:56 Nasal Cannula 2.0 03/01/24 06:56 28 Total Intake and Output 02/29/24 02/29/24 03/01/24 15:00 23:00 07:00 Intake Total 50 ml 200 ml 120 ml Output Total 365 ml 500 ml Balance 50 ml -165 ml -380 ml medications Current Medications Medications Dose Ordered Sig/Kourtney Route Start Time Stop Time Status Last Admin Dose Admin Acetaminophen/ Hydrocodone Bitart 1 tab Q4HP PRN PO 02/26/24 17:15 02/29/24 10:57 1 TAB Ondansetron HCl 4 mg Q4HP PRN IV 02/26/24 17:15 02/26/24 21:55 4 MG Acetaminophen 650 mg Q6HP PRN PO 02/26/24 17:15 02/28/24 21:50 650 MG Morphine Sulfate 2 mg Q4HPRN PRN IV 02/26/24 17:15 03/01/24 06:36 2 MG Nitroglycerin 0.4 mg Q5MINP PRN SL 02/26/24 17:15 Morphine Sulfate 2 mg Q30M PRN IV 02/26/24 17:15 Ipratropium [place] 0.5 mg Q6HR NEB 02/27/24 12:45 03/01/24 06:55 0.5 MG Methylprednisolone Sodium Succinate 40 mg Q8HR IV 02/27/24 14:00 03/01/24 06:00 40 MG Atorvastatin Calcium 20 mg HS PO 02/28/24 22:00 02/29/24 21:10 20 MG Furosemide 20 mg DAILY PO 02/28/24 10:00 02/29/24 08:16 20 MG Gabapentin 300 mg TID PO 02/27/24 14:00 03/01/24 06:00 300 MG Pantoprazole Sodium 40 mg DAILY@0600 PO 02/28/24 06:00 03/01/24 06:00 40 MG Diagnostic Test (Pha) 1 strip ACHS 02/28/24 11:30 03/01/24 06:04 1 STRIP Insulin Human Regular HS SC 02/28/24 22:00 02/29/24 21:11 3 UNITS Insulin Human Regular AC SC 02/28/24 11:30 03/01/24 06:04 2 UNITS Dextrose 50 ml UD PRN IV 02/28/24 10:30 Enoxaparin Sodium 40 mg DAILY SC 02/29/24 10:00 02/29/24 08:14 40 MG Docusate Sodium 100 mg BID PO 02/28/24 22:00 02/29/24 21:10 100 MG Levalbuterol HCl 0.625 mg Q6HR NEB 02/29/24 06:00 03/01/24 06:55 0.625 MG Metoprolol Tartrate 50 mg BID PO 02/29/24 22:00 02/29/24 21:10 50 MG Ceftriaxone Sodium 50 ml @ 100 mls/hr DAILY@09 IV 02/29/24 11:45 02/29/24 14:25 100 MLS/HR Doxycycline Monohydrate 100 mg Q12HR PO 02/29/24 22:00 Cancel Budesonide 0.5 mg BID NEB 02/29/24 22:00 03/01/24 06:56 0.5 MG Azithromycin 250 ml @ 125 mls/hr DAILY IV 03/01/24 10:00 objective General Appearance: alert, no distress HEENT: EOMI, PERRLA, normal external inspect of ears, no icterus, no nasal drainage Neck: no carotid bruit, no jugular venous distention (JVD), no lymphadenopathy Chest: normal thorax Respiratory: clear to auscultation, normal air movement Cardiovascular: regular rate and rhythm, no diastolic murmur, no jugular venous distention (JVD), no rub, no systolic murmur Abdominal: soft, no hepatomegaly, no mass, no splenomegaly, no tenderness Genitourinary: grossly normal external Musculoskeletal: no joint tenderness, no swelling Extremities: normal pulses, no calf tenderness, no clubbing, no cyanosis, no edema Skin: no bruising, no jaundice, no rash Neurological: alert, No focal deficit laboratory and microbiology Laboratory Tests 02/28/24 23:05 Test 02/28/24 23:05 Range/Units Serum Glucose 209 H 74-106 mg/dL Problem List 1. SOB r/t pneumothorax Monitor, pulmonary consult 2. S/p chest tube placement Monitor 3. GERD Monitor, PPI 4. HLD Monitor, restart home meds 5. COPD Monitor, pulmonary consult 6. SVT Monitor EKG, cardiology consult, beta blockers 7. Elevated D dimer Monitor 8. Pulmonary HTN Monitor, restart home meds Assessment/Plan Subjective Patient is awake and alert. Objective Patient was recently downgraded from [facility]AN. 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 She is status post cardioversion patient had a pigtail catheter placed near chest tube site by Dr. Zhou. Patient CEA level is negative. CA 19 and CA125 is currently pending. Plan Continue current treatment. Monitor respiratory status. Cardiology recommendations appreciated. Continue beta-blockers. Plan discussed with: Patient, Other DALJIT JIM NP Mar 01, 2024 08:30
--- NOTE | 2024-03-01 08:56 | DVH ---
CHEST RADIOGRAPH Indication: CHEST TUBE INSERTION Technique: Single frontal view of the chest was obtained COMPARISON: XY CHEST XRAY 1 VIEW on DOS: 02/29/24, XY CHEST XRAY 1 VIEW on DOS: 02/28/24, XY CHEST XR AY 1 VIEW on DOS: 02/28/24, XY CHEST XRAY 1 VIEW on DOS: 02/27/24, XY CHEST XRAY 1 VIEW on DOS: 02/25 FINDINGS: Lines and Tubes: Right chest tube in-situ. Lungs: Right mid lung airspace disease. Pleura: No effusion. No pneumothorax. Cardiomediastinal contours: Subcutaneous emphysema along the right chest wall. Bones: Unremarkable IMPRESSION: No significant interval change. No appreciable pneumothorax.
[2024-03-01] MEDS: AZITHROMYCIN 500MG/ 250ML 250 ML IV SCH (10:00)
--- NOTE | 2024-03-01 11:07 | MEDREC ---
[facility] Intervention Section I [facility] Intervention: Review courses of therapy (PLEASE CONSIDER D/C ANTIBIOTIC(S) IN ABSENCE OF BACTERIAL INFECTION ) FILIPPO SADLER PHARMACIST Mar 01, 2024 11:07
--- NOTE | 2024-03-01 12:34 | ECG ---
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
--- NOTE | 2024-03-01 12:41 | ECG ---
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
--- NOTE | 2024-03-01 16:06 | DVHNC2 ---
Procedure - Cook Melchor Pigtail Chest tube placement procedure note: Physician: Dr Venancio Zhou Senior Radiation Therapist Dr Ray Date: 02/29/2024 Time: 1330 pm Diagnosis: Pneumothorax, Hypoxia Indication: Hypoxia, evacuation of air from pleural space Consent: Consent was obtained from patient prior to procedure. Indication, risks, and benefits were explained at length. Time out time: 1325 pm Patient medications and allergies reviewed. The risks and benefits of the procedure and the sedation options and risk were discussed with the patient's healthcare proxy. All questions were answered and informed consent was obtained. Patient identification and proposed procedure were verified prior to the procedure by the physician, and a nurse in the patient's room. The heart rate, respiratory rate, oxygen saturations, blood pressure, adequacy of pulmonary ventilation, and response to care were monitored throughout the procedure. The physical status of the patient was reassessed after the procedure. Procedure summary: A time-out was performed and a chest x-ray was reviewed prior to procedure. The appropriate site was confirmed and marked. My hands were washed immediately prior to the procedure, I wore a surgical cap, mask with protective eyewear, sterile gown and sterile gloves throughout the procedure. The patient was prepped and draped in a sterile manner using chlorhexidine scrub after the appropriate level was percussed and confirmed by ultrasound. 1% lidocaine was used to anesthetize the skin, subcutaneous tissue, superior aspect of the rib periosteum and parietal pleura. An 18-gauge needle with syringe attached was inserted into the pleural space with aspiration of air to verify placement. A guidewire was advanced into the pleural space and needle was withdrawn. 0.5 cm incision was made through the skin and subcutaneous tissues were dilated with a dilator. The 14 [place] Cook Melchor pigtail chest drain was inserted into the pleural space. The drain was then immediately connected to a Pleur-evac. Adequate placement confirmed by air leak. The chest tube was sutured in place and dressing was applied. The patient tolerated the procedure well. CXR post procedure demonstrates RIGHT chest tube in place and re-expansion of the lung. Estimated blood loss: Less than 5 mL. Complications: None. CPT 99279 WADE ZHOU MD Mar 01, 2024 16:06
--- NOTE | 2024-03-01 16:32 | DVHPN2 ---
Progress Note - Dictate Medical Necessity Reason Pt with a Central, PICC or Fol: Yes The following are medically ne: Marrufo Catheter Reason for marrufo catheter: Strict I&O vital signs Vital Sign Date Time Temp Pulse Resp B/P (MAP) Pulse Ox O2 Delivery O2 Flow Rate FiO2 03/01/24 13:07 98.2 83 19 113/71 (85) 92 98.2 03/01/24 11:49 Nasal Cannula 3.0 03/01/24 11:49 32 Total Intake and Output 02/29/24 02/29/24 03/01/24 15:00 23:00 07:00 Intake Total 50 ml 200 ml 120 ml Output Total 365 ml 500 ml Balance 50 ml -165 ml -380 ml medications Current Medications Medications Dose Ordered Sig/Kourtney Route Start Time Stop Time Status Last Admin Dose Admin Acetaminophen/ Hydrocodone Bitart 1 tab Q4HP PRN PO 02/26/24 17:15 02/29/24 10:57 1 TAB Ondansetron HCl 4 mg Q4HP PRN IV 02/26/24 17:15 02/26/24 21:55 4 MG Acetaminophen 650 mg Q6HP PRN PO 02/26/24 17:15 02/28/24 21:50 650 MG Morphine Sulfate 2 mg Q4HPRN PRN IV 02/26/24 17:15 03/01/24 12:43 2 MG Nitroglycerin 0.4 mg Q5MINP PRN SL 02/26/24 17:15 Morphine Sulfate 2 mg Q30M PRN IV 02/26/24 17:15 Ipratropium [place] 0.5 mg Q6HR NEB 02/27/24 12:45 03/01/24 11:49 0.5 MG Methylprednisolone Sodium Succinate 40 mg Q8HR IV 02/27/24 14:00 03/01/24 12:43 40 MG Atorvastatin Calcium 20 mg HS PO 02/28/24 22:00 02/29/24 21:10 20 MG Furosemide 20 mg DAILY PO 02/28/24 10:00 03/01/24 10:48 20 MG Gabapentin 300 mg TID PO 02/27/24 14:00 03/01/24 12:42 300 MG Pantoprazole Sodium 40 mg DAILY@0600 PO 02/28/24 06:00 03/01/24 06:00 40 MG Diagnostic Test (Pha) 1 strip ACHS 02/28/24 11:30 03/01/24 12:44 1 STRIP Insulin Human Regular HS SC 02/28/24 22:00 02/29/24 21:11 3 UNITS Insulin Human Regular AC SC 02/28/24 11:30 03/01/24 12:46 2 UNITS Dextrose 50 ml UD PRN IV 02/28/24 10:30 Enoxaparin Sodium 40 mg DAILY SC 02/29/24 10:00 03/01/24 10:49 40 MG Docusate Sodium 100 mg BID PO 02/28/24 22:00 03/01/24 10:47 100 MG Levalbuterol HCl 0.625 mg Q6HR NEB 02/29/24 06:00 03/01/24 11:49 0.625 MG Metoprolol Tartrate 50 mg BID PO 02/29/24 22:00 03/01/24 10:48 50 MG Ceftriaxone Sodium 50 ml @ 100 mls/hr DAILY@09 IV 02/29/24 11:45 03/01/24 08:52 100 MLS/HR Doxycycline Monohydrate 100 mg Q12HR PO 02/29/24 22:00 Cancel Budesonide 0.5 mg BID NEB 02/29/24 22:00 03/01/24 06:56 0.5 MG Azithromycin 250 ml @ 125 mls/hr DAILY IV 03/01/24 10:00 03/01/24 10:00 125 MLS/HR objective General Appearance: alert, no distress HEENT: EOMI, PERRLA, normal external inspect of ears, no icterus, no nasal drainage Neck: no carotid bruit, no jugular venous distention (JVD), no lymphadenopathy Chest: normal thorax Respiratory: clear to auscultation, normal air movement Cardiovascular: regular rate and rhythm, no diastolic murmur, no jugular venous distention (JVD), no rub, no systolic murmur Abdominal: soft, no hepatomegaly, no mass, no splenomegaly, no tenderness Genitourinary: grossly normal external Musculoskeletal: no joint tenderness, no swelling Extremities: normal pulses, no calf tenderness, no clubbing, no cyanosis, no edema Skin: no bruising, no jaundice, no rash Neurological: alert, No focal deficit laboratory and microbiology Laboratory Tests 02/28/24 23:05 Test 02/28/24 23:05 Range/Units Serum Glucose 209 H 74-106 mg/dL Problem List 1. SOB r/t pneumothorax Monitor, pulmonary consult 2. S/p chest tube placement Monitor 3. GERD Monitor, PPI 4. HLD Monitor, restart home meds 5. COPD Monitor, pulmonary consult 6. SVT Monitor EKG, cardiology consult, beta blockers 7. Elevated D dimer Monitor 8. Pulmonary HTN Monitor, restart home meds Assessment/Plan Subjective: Patient is awake and alert Objective: Patient was transferred into [facility]AN yesterday. 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 Patient went SVT, heart rate up to 260. Her blood pressure dropped to the 60s. Patient was cardioverted by ER physician. Patient was admitted on February 26, 2024 for shortness of breath. Patient was found to have a right pneumothorax. Chest tube was placed. CT imaging shows a large right hydropneumothorax. Pulmonary has been reconsulted. Plan: Increase beta-iam for heart rate control. Cardiology recommendations appreciated. No leukocytosis or signs of infection can be found. CT is questioning possible inflammatory process. Plan is obtain lactate level. Obtain CRP. Obtain tumor marker labs to rule out any type of malignancy. Chest tube management per pulmonary. Had cardiology recommendations appreciated for SVT. DALJIT JIM NP Mar 01, 2024 16:32
[2024-03-01] MEDS: guaiFENesin 200 MG/10 ML UD PO PRN (17:30)
--- NOTE | 2024-03-01 22:57 | DVHPN2 ---
Progress Note - Dictate Date Seen: Mar 01, 2024 Medical Necessity Reason Pt with a Central, PICC or Fol: Yes The following are medically ne: Marrufo Catheter Reason for marrufo catheter: Strict I&O Subjective Patient seen and examined at bedside. Remains on supplemental oxygen Overnight events reviewed. vital signs Vital Sign Date Time Temp Pulse Resp B/P (MAP) Pulse Ox O2 Delivery O2 Flow Rate FiO2 03/01/24 22:11 77 18 92 03/01/24 22:04 120/53 03/01/24 21:00 98.0 98.0 03/01/24 18:28 Nasal Cannula 2.0 03/01/24 18:28 28 Total Intake and Output 02/29/24 02/29/24 03/01/24 15:00 23:00 07:00 Intake Total 50 ml 200 ml 120 ml Output Total 365 ml 500 ml Balance 50 ml -165 ml -380 ml medications Current Medications Medications Dose Ordered Sig/Kourtney Route Start Time Stop Time Status Last Admin Dose Admin Acetaminophen/ Hydrocodone Bitart 1 tab Q4HP PRN PO 02/26/24 17:15 03/01/24 19:04 1 TAB Ondansetron HCl 4 mg Q4HP PRN IV 02/26/24 17:15 02/26/24 21:55 4 MG Acetaminophen 650 mg Q6HP PRN PO 02/26/24 17:15 02/28/24 21:50 650 MG Morphine Sulfate 2 mg Q4HPRN PRN IV 02/26/24 17:15 03/01/24 22:04 2 MG Nitroglycerin 0.4 mg Q5MINP PRN SL 02/26/24 17:15 Morphine Sulfate 2 mg Q30M PRN IV 02/26/24 17:15 Ipratropium [place] 0.5 mg Q6HR NEB 02/27/24 12:45 03/01/24 18:28 0.5 MG Methylprednisolone Sodium Succinate 40 mg Q8HR IV 02/27/24 14:00 03/01/24 22:02 40 MG Atorvastatin Calcium 20 mg HS PO 02/28/24 22:00 03/01/24 22:01 20 MG Furosemide 20 mg DAILY PO 02/28/24 10:00 03/01/24 10:48 20 MG Gabapentin 300 mg TID PO 02/27/24 14:00 03/01/24 22:02 300 MG Pantoprazole Sodium 40 mg DAILY@0600 PO 02/28/24 06:00 03/01/24 06:00 40 MG Diagnostic Test (Pha) 1 strip ACHS 02/28/24 11:30 03/01/24 22:09 1 STRIP Insulin Human Regular HS SC 02/28/24 22:00 03/01/24 22:09 2 UNITS Insulin Human Regular AC SC 02/28/24 11:30 03/01/24 17:24 3 UNITS Dextrose 50 ml UD PRN IV 02/28/24 10:30 Enoxaparin Sodium 40 mg DAILY SC 02/29/24 10:00 03/01/24 10:49 40 MG Docusate Sodium 100 mg BID PO 02/28/24 22:00 03/01/24 22:01 100 MG Levalbuterol HCl 0.625 mg Q6HR NEB 02/29/24 06:00 03/01/24 18:28 0.625 MG Metoprolol Tartrate 50 mg BID PO 02/29/24 22:00 03/01/24 22:00 50 MG Ceftriaxone Sodium 50 ml @ 100 mls/hr DAILY@09 IV 02/29/24 11:45 03/01/24 08:52 100 MLS/HR Doxycycline Monohydrate 100 mg Q12HR PO 02/29/24 22:00 Cancel Budesonide 0.5 mg BID NEB 02/29/24 22:00 03/01/24 22:11 0.5 MG Azithromycin 250 ml @ 125 mls/hr DAILY IV 03/01/24 10:00 03/01/24 10:00 125 MLS/HR Guaifenesin 200 mg Q6HP PRN PO 03/01/24 16:45 03/01/24 17:30 200 MG objective Gen.: Patient lying in bed in no apparent distress. On supplemental oxygen. Head: Normocephalic, atraumatic. Eyes: EOMI/PERRLA. Ears: Normal hearing. Normal anatomy. Neck/trachea: Trachea midline, supple. Nose: Normal external anatomy. Mouth: Moist mucous membranes. Chest: Decreased air entry bilaterally. Wheezing. No rhonchi. Cardiovascular: Positive S1, positive S2. Regular rate and rhythm. Abdomen: Positive bowel sounds in all 4 quadrants. Soft, non-tender, non- distended. : Deferred. Rectal: Deferred. Skin: Warm, dry. Intact. Extremities: 2+ radial pulses bilaterally. No lower extremity edema. Neuro: Awake, alert, oriented x3. No gross motor or sensory deficits. Cranial nerves II through XII intact. Gait not assessed. laboratory and microbiology Laboratory Tests 02/28/24 23:05 Test 02/28/24 23:05 Range/Units Serum Glucose 209 H 74-106 mg/dL Assessment/Plan Impression: Acute hypoxic respiratory failure Right pneumothorax status post chest tube placement COPD Asthma Obesity with a BMI of 33.6 Atelectasis DM type II with hyperglycemia Elevated d-dimer Events: Remains on supplemental oxygen, 3 LPM NC Taper O2 as tolerated CXR shows right middle lobe airspace disease. Diffuse congestion. No pneumothorax. Right chest tube in place. Continue bronchodilators IV steroids Solu-Medrol 40 mg q.8 hours Continue antibiotics Incentive spirometry Pain control Avoid oversedation Monitor chest tube output No air leak Labs and imaging reviewed. Rest of plan as noted below. Plan: Chest tube in place Chest tube placed to -20 cmH2O continuous LWS. CXR demonstrates right chest tube in place with right lung re-expansion. Monitor for air leak. Daily CXR Supplemental o2 Keep o2 sat above 92% IS for atelectasis Pain control Avoid oversedation Accu-Cheks, ISS Elevated d-dimer, likely reactive due to pneumothorax. DVT prophylaxis- Lovenox Prognosis: Poor given multiple comorbidities. Rest of plan per hospitalist and other consultants. Thank you Dr. Montesinos/LIA Carrington for allowing me to participate in this patient's care. Further recommendations will depend on patient's clinical course. Please do not hesitate to contact me if you have any questions or concerns. This medical document was created using an electronic medical record system with [employer] dictation system. Although this document has been carefully reviewed, there may still be some phonetic and typographical errors. These areas are purely typographical due to imperfections of the software programs, and do not reflect any compromise in the patient's medical care. Plan discussed with: Patient, Other (STEVE Driscoll) WADE PATEL MD Mar 01, 2024 22:57
[2024-03-02] VITALS (17 sets, daily range): BP systolic 119–155; BP diastolic 58–84; PULSE 67–83; RESP 16–22; TEMP 97.4–98.2; O2SAT 90–98
--- NOTE | 2024-03-02 06:49 | DVH ---
CHEST RADIOGRAPH Indication: interval changes in pneumothorax Technique: Single frontal view of the chest was obtained Comparison: XY CHEST XRAY 1 VIEW on DOS: 03/01/24, XY CHEST PORTABLE on DOS: 02/29/24, XY CHEST XRAY 1 VIEW on DOS: 02/29/24 IMPRESSION: Heart appears normal in stable in size. Right pleural catheter appears relatively unchanged. Ovoid patchy opacity in the right mid lung with subcutaneous emphysema, similar. The left lung appears chetna ar. No significant interval change.
--- NOTE | 2024-03-02 11:17 | DVHPN2 ---
Progress Note - Dictate Date Seen: Mar 02, 2024 Medical Necessity Reason Pt with a Central, PICC or Fol: Yes The following are medically ne: Marrufo Catheter Reason for marrufo catheter: Strict I&O vital signs Vital Sign Date Time Temp Pulse Resp B/P (MAP) Pulse Ox O2 Delivery O2 Flow Rate FiO2 03/02/24 10:51 80 18 98 03/02/24 10:44 140/82 03/02/24 09:00 97.4 97.4 03/02/24 08:00 Nasal Cannula* 2 28 Total Intake and Output 03/01/24 03/01/24 03/02/24 15:00 23:00 07:00 Intake Total 200 ml 500 ml Output Total 500 ml 900 ml Balance -300 ml -400 ml medications Current Medications Medications Dose Ordered Sig/Kourtney Route Start Time Stop Time Status Last Admin Dose Admin Acetaminophen/ Hydrocodone Bitart 1 tab Q4HP PRN PO 02/26/24 17:15 03/01/24 19:04 1 TAB Ondansetron HCl 4 mg Q4HP PRN IV 02/26/24 17:15 02/26/24 21:55 4 MG Acetaminophen 650 mg Q6HP PRN PO 02/26/24 17:15 03/02/24 10:16 650 MG Morphine Sulfate 2 mg Q4HPRN PRN IV 02/26/24 17:15 03/02/24 10:44 2 MG Nitroglycerin 0.4 mg Q5MINP PRN SL 02/26/24 17:15 Morphine Sulfate 2 mg Q30M PRN IV 02/26/24 17:15 Ipratropium [place] 0.5 mg Q6HR NEB 02/27/24 12:45 03/02/24 06:51 0.5 MG Methylprednisolone Sodium Succinate 40 mg Q8HR IV 02/27/24 14:00 03/02/24 05:23 40 MG Atorvastatin Calcium 20 mg HS PO 02/28/24 22:00 03/01/24 22:01 20 MG Furosemide 20 mg DAILY PO 02/28/24 10:00 03/02/24 09:56 20 MG Gabapentin 300 mg TID PO 02/27/24 14:00 03/02/24 05:23 300 MG Pantoprazole Sodium 40 mg DAILY@0600 PO 02/28/24 06:00 03/02/24 05:23 40 MG Diagnostic Test (Pha) 1 strip ACHS 02/28/24 11:30 03/02/24 07:07 1 STRIP Insulin Human Regular HS SC 02/28/24 22:00 03/01/24 22:09 2 UNITS Insulin Human Regular AC SC 02/28/24 11:30 03/02/24 06:51 2 UNITS Dextrose 50 ml UD PRN IV 02/28/24 10:30 Enoxaparin Sodium 40 mg DAILY SC 02/29/24 10:00 03/02/24 09:56 40 MG Docusate Sodium 100 mg BID PO 02/28/24 22:00 03/02/24 09:55 100 MG Levalbuterol HCl 0.625 mg Q6HR NEB 02/29/24 06:00 03/02/24 06:51 0.625 MG Metoprolol Tartrate 50 mg BID PO 02/29/24 22:00 03/02/24 10:01 50 MG Ceftriaxone Sodium 50 ml @ 100 mls/hr DAILY@09 IV 02/29/24 11:45 03/02/24 08:33 100 MLS/HR Doxycycline Monohydrate 100 mg Q12HR PO 02/29/24 22:00 Cancel Budesonide 0.5 mg BID NEB 02/29/24 22:00 03/02/24 10:44 0.5 MG Azithromycin 250 ml @ 125 mls/hr DAILY IV 03/01/24 10:00 03/02/24 09:55 125 MLS/HR Guaifenesin 200 mg Q6HP PRN PO 03/01/24 16:45 03/02/24 01:51 200 MG objective General Appearance: alert, no distress HEENT: EOMI, PERRLA, normal external inspect of ears, no icterus, no nasal drainage Neck: no carotid bruit, no jugular venous distention (JVD), no lymphadenopathy Chest: normal thorax Respiratory: clear to auscultation, normal air movement Cardiovascular: regular rate and rhythm, no diastolic murmur, no jugular venous distention (JVD), no rub, no systolic murmur Abdominal: soft, no hepatomegaly, no mass, no splenomegaly, no tenderness Genitourinary: grossly normal external Musculoskeletal: no joint tenderness, no swelling Extremities: normal pulses, no calf tenderness, no clubbing, no cyanosis, no edema Skin: no bruising, no jaundice, no rash Neurological: alert, No focal deficit laboratory and microbiology Laboratory Tests 02/28/24 23:05 Test 02/28/24 23:05 Range/Units Serum Glucose 209 H 74-106 mg/dL Problem List 1. SOB r/t pneumothorax Monitor, pulmonary consult 2. S/p chest tube placement Monitor 3. GERD Monitor, PPI 4. HLD Monitor, restart home meds 5. COPD Monitor, pulmonary consult 6. SVT Monitor EKG, cardiology consult, beta blockers 7. Elevated D dimer Monitor 8. Pulmonary HTN Monitor, restart home meds Assessment/Plan Subjective: Patient is awake and alert. Objective: Patient is very anxious today. Patient states she has been constipated for approximately 4 to 5 days. Patient also states she has not been able to have any sleep. Patient is complaining of pain and swelling to her right knee. Patient states she needs a soft diet. Plan: Monitor EKG. Patient is status post cardioversion from SVT. Start cathartics. Start medications for insomnia as needed. Start anxiolytics as needed. Start lidocaine patch daily to right knee. Change diet to soft diet. Chest tube management per Dr. Zhou. Plan discussed with: Patient, Other DALJIT JIM NP Mar 02, 2024 11:17
--- NOTE | 2024-03-02 11:19 | DVHPN2 ---
Progress Note Date Seen: Mar 02, 2024 Medical Necessity Reason Pt with a Central, PICC or Fol: Yes The following are medically ne: Marrufo Catheter Reason for marrufo catheter: Strict I&O Objective vital signs Vital Sign Date Time Temp Pulse Resp B/P (MAP) Pulse Ox O2 Delivery O2 Flow Rate FiO2 03/02/24 10:51 80 18 98 03/02/24 10:44 140/82 03/02/24 09:00 97.4 97.4 03/02/24 08:00 Nasal Cannula* 2 28 Total Intake and Output 03/01/24 03/01/24 03/02/24 15:00 23:00 07:00 Intake Total 200 ml 500 ml Output Total 500 ml 900 ml Balance -300 ml -400 ml medications Current Medications Medications Dose Ordered Sig/Kourtney Route Start Time Stop Time Status Last Admin Dose Admin Acetaminophen/ Hydrocodone Bitart 1 tab Q4HP PRN PO 02/26/24 17:15 03/01/24 19:04 1 TAB Ondansetron HCl 4 mg Q4HP PRN IV 02/26/24 17:15 02/26/24 21:55 4 MG Acetaminophen 650 mg Q6HP PRN PO 02/26/24 17:15 03/02/24 10:16 650 MG Morphine Sulfate 2 mg Q4HPRN PRN IV 02/26/24 17:15 03/02/24 10:44 2 MG Nitroglycerin 0.4 mg Q5MINP PRN SL 02/26/24 17:15 Morphine Sulfate 2 mg Q30M PRN IV 02/26/24 17:15 Ipratropium [place] 0.5 mg Q6HR NEB 02/27/24 12:45 03/02/24 06:51 0.5 MG Methylprednisolone Sodium Succinate 40 mg Q8HR IV 02/27/24 14:00 03/02/24 05:23 40 MG Atorvastatin Calcium 20 mg HS PO 02/28/24 22:00 03/01/24 22:01 20 MG Furosemide 20 mg DAILY PO 02/28/24 10:00 03/02/24 09:56 20 MG Gabapentin 300 mg TID PO 02/27/24 14:00 03/02/24 05:23 300 MG Pantoprazole Sodium 40 mg DAILY@0600 PO 02/28/24 06:00 03/02/24 05:23 40 MG Diagnostic Test (Pha) 1 strip ACHS 02/28/24 11:30 03/02/24 07:07 1 STRIP Insulin Human Regular HS SC 02/28/24 22:00 03/01/24 22:09 2 UNITS Insulin Human Regular AC SC 02/28/24 11:30 03/02/24 06:51 2 UNITS Dextrose 50 ml UD PRN IV 02/28/24 10:30 Enoxaparin Sodium 40 mg DAILY SC 02/29/24 10:00 03/02/24 09:56 40 MG Docusate Sodium 100 mg BID PO 02/28/24 22:00 03/02/24 09:55 100 MG Levalbuterol HCl 0.625 mg Q6HR NEB 02/29/24 06:00 03/02/24 06:51 0.625 MG Metoprolol Tartrate 50 mg BID PO 02/29/24 22:00 03/02/24 10:01 50 MG Ceftriaxone Sodium 50 ml @ 100 mls/hr DAILY@09 IV 02/29/24 11:45 03/02/24 08:33 100 MLS/HR Doxycycline Monohydrate 100 mg Q12HR PO 02/29/24 22:00 Cancel Budesonide 0.5 mg BID NEB 02/29/24 22:00 03/02/24 10:44 0.5 MG Azithromycin 250 ml @ 125 mls/hr DAILY IV 03/01/24 10:00 03/02/24 09:55 125 MLS/HR Guaifenesin 200 mg Q6HP PRN PO 03/01/24 16:45 03/02/24 01:51 200 MG laboratory and microbiology Laboratory Tests 02/28/24 23:05 Test 02/28/24 23:05 Range/Units Serum Glucose 209 H 74-106 mg/dL Problem List/Assessment/Plan Problem List/Assessment/Plan Assessment/Plan This is a 69-year old female who initially presented (02/26/2024) with shortness of breath and cough with associated orthopnea for approximately 2 days prior to initial arrival. Upon ED arrival, initial twelve lead electrocardiogram was performed revealing sinus tachycardia at 104 bpm with no acute ischemic changes. Initial HS troponin level was found normal at <3 with subsequent level of <3. BNP level was found normal at 12.74. Covid-19, Influenza A/B were found negative. WBC found normal at 5.6. Initial chest x-ray revealed presence of a moderate sized pneumothorax involving the right lung which patient underwent right sided chest tube placement. Subsequent chest x-ray post chest tube placement revealed interval improvement of right pneumothorax. Repeat chest imaging (02/27/2024) revealed presence of a small right apical pneumothorax with chest tube in situ which Pulmonology services have been involved for management. While within the ED, patient was noted to have an episode of tachycardia which upon EKG analysis, there is presence of a narrow-complex tachycardia at 191 bpm with questionable presence of 2:1 atrial flutter which as per ED provider note, patient spontaneously converted back to sinus rhythm. Repeat EKG at the time post spontaneous conversion revealed sinus tachycardia at 105bpm. Initial potassium level found normal at 4.0 with a magnesium level of 2.0. TSH level was found to be 0.49. Current LDL is 145 with an A1C of 6.8. Cardiology services have now been involved for cardiac aspects of care. On tele floor, patient had episode of tachycarrhythmia and she was cardioverted for SVT Past medical history includes obesity, diabetes mellitus, asthma, GERD, hypertension, hyperlipidemia, pulmonary hypertension, old history of hysterectomy and left knee replacement. She does smoke cigarettes. She occasionally uses marijuana. She occasionally drinks alcohol Echocardiogram (08/2023) revealed Left ventricle: Left ventricle is normal size with normal systolic function. LVEF was 65 to 70%. There was no gross wall motion abnormality. Left atrium was normal size. Right-sided chambers were dilated. Aortic valve was trileaflet. There was no aortic insufficiency/stenosis. There was trivial mitral regurgitation. There was mild tricuspid regurgitation. Pulmonary valve was not well-visualized Right ventricular systolic pressure was assessed around 65 mmHg. IVC was dilated. There was no pericardial effusion. venous duplex was negative for lower ext dvt TSH: 0.48, T4 (free): 1.02 (wnl), T3 (free): 1.76 (mildly low) (findings are in favor of subclinical hyperthyroidism) Echo reported: Left ventricle: Left ventricle was normal sized with normal systolic function. LVEF was 65-70%. There was no gross wall motion abnormality. Right ventricle was normal size with normal systolic function. Both atria were normal size. Aortic valve: Aortic valve was trileaflet. There was no aortic insufficiency/stenosis. There was trivial tricuspid and mitral regurgitation. Pulmonic valve was not well visualized. Right ventricular systolic pressure was assessed around 40 mm Hg. There was no pericardial effusion. IVC was normal size with normal respiratory variation. Assessment: Acute hypoxic respiratory failure, secondary to right-sided pneumothorax Right-sided pneumothorax, status post chest tube placement Narrow-complex tachycardia, SVT s/p cardioversion for SVT Abnormal D-Dimer (0.59), likely refractory to pneumothorax Abnormal TSH level (0.49), rule out thyroid dysfunction: subclinical hyperthyroidism Pulmonary hypertension Nicotine dependence Diabetes mellitus II Asthma, history of COPD, history of Hyperlipidemia Hypertension Obesity Plan: Will continue current care Plan discussed with: Other (nurse) Total Time (mins): 43 SAMINA MARTÍNEZ MD Mar 02, 2024 11:19
[2024-03-02] MEDS: NIFEdipine ER 30 MG TAB PO SCH (11:30)
[2024-03-02] MEDS: POLYETHYLENE GLYCOL 17 GM PWDR PO SCH (11:45)
[2024-03-02] MEDS: LACTULOSE 20Gm/30ML SOLN PO SCH (14:00)
--- NOTE | 2024-03-02 14:19 | ECG ---
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
--- NOTE | 2024-03-02 14:44 | ECG ---
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
--- NOTE | 2024-03-02 14:44 | ECG ---
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
[2024-03-02] MEDS: ZOLPIDEM TARTRATE 5 MG TAB PO PRN (21:25)
--- NOTE | 2024-03-02 23:10 | DVHPN2 ---
Progress Note - Dictate Date Seen: Mar 02, 2024 Medical Necessity Reason Pt with a Central, PICC or Fol: Yes The following are medically ne: Marrufo Catheter Reason for marrufo catheter: Strict I&O Subjective Patient seen and examined at bedside. Remains on supplemental oxygen Overnight events reviewed. vital signs Vital Sign Date Time Temp Pulse Resp B/P (MAP) Pulse Ox O2 Delivery O2 Flow Rate FiO2 03/02/24 21:21 78 125/76 03/02/24 21:00 98.0 17 93 98.0 03/02/24 19:48 Nasal Cannula 3.0 03/02/24 19:48 32 Total Intake and Output 03/01/24 03/01/24 03/02/24 15:00 23:00 07:00 Intake Total 200 ml 500 ml Output Total 500 ml 900 ml Balance -300 ml -400 ml medications Current Medications Medications Dose Ordered Sig/Kourtney Route Start Time Stop Time Status Last Admin Dose Admin Acetaminophen/ Hydrocodone Bitart 1 tab Q4HP PRN PO 02/26/24 17:15 03/01/24 19:04 1 TAB Ondansetron HCl 4 mg Q4HP PRN IV 02/26/24 17:15 02/26/24 21:55 4 MG Acetaminophen 650 mg Q6HP PRN PO 02/26/24 17:15 03/02/24 10:16 650 MG Morphine Sulfate 2 mg Q4HPRN PRN IV 02/26/24 17:15 03/02/24 16:45 2 MG Nitroglycerin 0.4 mg Q5MINP PRN SL 02/26/24 17:15 Morphine Sulfate 2 mg Q30M PRN IV 02/26/24 17:15 Ipratropium [place] 0.5 mg Q6HR NEB 02/27/24 12:45 03/02/24 19:48 0.5 MG Methylprednisolone Sodium Succinate 40 mg Q8HR IV 02/27/24 14:00 03/02/24 21:23 40 MG Atorvastatin Calcium 20 mg HS PO 02/28/24 22:00 03/02/24 21:19 20 MG Furosemide 20 mg DAILY PO 02/28/24 10:00 03/02/24 09:56 20 MG Gabapentin 300 mg TID PO 02/27/24 14:00 03/02/24 21:19 300 MG Pantoprazole Sodium 40 mg DAILY@0600 PO 02/28/24 06:00 03/02/24 05:23 40 MG Diagnostic Test (Pha) 1 strip ACHS 02/28/24 11:30 03/02/24 21:22 1 STRIP Insulin Human Regular HS SC 02/28/24 22:00 03/02/24 21:22 3 UNITS Insulin Human Regular AC SC 02/28/24 11:30 03/02/24 17:26 2 UNITS Dextrose 50 ml UD PRN IV 02/28/24 10:30 Enoxaparin Sodium 40 mg DAILY SC 02/29/24 10:00 03/02/24 09:56 40 MG Docusate Sodium 100 mg BID PO 02/28/24 22:00 03/02/24 21:19 100 MG Levalbuterol HCl 0.625 mg Q6HR NEB 02/29/24 06:00 03/02/24 19:48 0.625 MG Metoprolol Tartrate 50 mg BID PO 02/29/24 22:00 03/02/24 21:21 50 MG Ceftriaxone Sodium 50 ml @ 100 mls/hr DAILY@09 IV 02/29/24 11:45 03/02/24 08:33 100 MLS/HR Doxycycline Monohydrate 100 mg Q12HR PO 02/29/24 22:00 Cancel Budesonide 0.5 mg BID NEB 02/29/24 22:00 03/02/24 19:51 0.5 MG Azithromycin 250 ml @ 125 mls/hr DAILY IV 03/01/24 10:00 03/02/24 09:55 125 MLS/HR Guaifenesin 200 mg Q6HP PRN PO 03/01/24 16:45 03/02/24 01:51 200 MG Nifedipine 30 mg DAILY PO 03/02/24 11:30 03/02/24 11:30 30 MG Polyethylene Glycol 17 gm DAILY PO 03/02/24 11:45 03/02/24 11:45 17 GM Lactulose 30 ml Q8HR PO 03/02/24 14:00 Alprazolam 1 mg Q8HPRN PRN PO 03/02/24 11:45 Zolpidem Tartrate 5 mg HSPRN PRN PO 03/02/24 11:45 03/02/24 21:25 5 MG Lidocaine 1 patch DAILY TOP 03/03/24 10:00 objective Gen.: Patient lying in bed in no apparent distress. On supplemental oxygen. Head: Normocephalic, atraumatic. Eyes: EOMI/PERRLA. Ears: Normal hearing. Normal anatomy. Neck/trachea: Trachea midline, supple. Nose: Normal external anatomy. Mouth: Moist mucous membranes. Chest: Decreased air entry bilaterally. Wheezing. No rhonchi. Cardiovascular: Positive S1, positive S2. Regular rate and rhythm. Abdomen: Positive bowel sounds in all 4 quadrants. Soft, non-tender, non- distended. : Deferred. Rectal: Deferred. Skin: Warm, dry. Intact. Extremities: 2+ radial pulses bilaterally. No lower extremity edema. Neuro: Awake, alert, oriented x3. No gross motor or sensory deficits. Cranial nerves II through XII intact. Gait not assessed. laboratory and microbiology Laboratory Tests 02/28/24 23:05 Test 02/28/24 23:05 Range/Units Serum Glucose 209 H 74-106 mg/dL Assessment/Plan Impression: Acute hypoxic respiratory failure Right pneumothorax status post chest tube placement COPD Asthma Obesity with a BMI of 33.6 Atelectasis DM type II with hyperglycemia Elevated d-dimer Events: Remains on supplemental oxygen, 2 LPM NC Taper O2 as tolerated CXR reviewed, notable for ovoid patchy opacity in the right mid lung with subcutaneous emphysema, similar to prior. Right chest tube in place. No significant interval change Repeat CXR in AM to assess for interval changes. Chest tube to -20 cm H2O Continue to monitor output Continue bronchodilators IV steroids Solu-Medrol 40 mg q.8 hours Continue antibiotics Incentive spirometry Pain control Avoid oversedation Labs and imaging reviewed. Rest of plan as noted below. Plan: Chest tube in place Chest tube placed to -20 cmH2O continuous LWS. CXR demonstrates right chest tube in place with right lung re-expansion. Monitor for air leak. Daily CXR Supplemental o2 Keep o2 sat above 92% IS for atelectasis Pain control Avoid oversedation Accu-Cheks, ISS Elevated d-dimer, likely reactive due to pneumothorax. DVT prophylaxis- Lovenox Prognosis: Poor given multiple comorbidities. Rest of plan per hospitalist and other consultants. Thank you Dr. Montesinos/LIA Carrington for allowing me to participate in this patient's care. Further recommendations will depend on patient's clinical course. Please do not hesitate to contact me if you have any questions or concerns. This medical document was created using an electronic medical record system with [employer] dictation system. Although this document has been carefully reviewed, there may still be some phonetic and typographical errors. These areas are purely typographical due to imperfections of the software programs, and do not reflect any compromise in the patient's medical care. Dietary Evaluation Review Recommendations by RD: Dietary education by RD Comments: 1) Refer to outpatient RD/CDCES for weight management 2) F/u with mechanic general operational test 2) Continue to monitor PO intake and nutrition-related labs. 3) Continue plan of care Expected Outcomes/Goals: 1) appetite and labs to improve 2) f/u in 3-5 days Plan discussed with: Patient, Other (STEVE Mckinney) WADE PATEL MD Mar 02, 2024 23:10
[2024-03-03] VITALS (14 sets, daily range): BP systolic 102–127; BP diastolic 56–75; PULSE 60–89; RESP 15–18; TEMP 97.4–98.2; O2SAT 90–100
--- NOTE | 2024-03-03 05:54 | DVH ---
CHEST RADIOGRAPH Indication: interval changes in pneumothorax Technique: Single frontal view of the chest was obtained Comparison: XY CHEST XRAY 1 VIEW on DOS: 03/02/24 FINDINGS: Lines and Tubes: Right pigtail catheter is unchanged in position. Lungs: No focal consolidation. Pleura: There is a right pleural effusion in the minor fissure, decreased since prior study. No pneumothorax. Cardiomediastinal contours: Unremarkable Bones: No acute osseous abnormality. Subcutaneous emphysema in the right chest wall. IMPRESSION: 1. Decreased right pleural effusion. Right chest tube unchanged in position.
--- NOTE | 2024-03-03 07:38 | DVHPN2 ---
Progress Note - Dictate Date Seen: Mar 03, 2024 Medical Necessity Reason Pt with a Central, PICC or Fol: Yes The following are medically ne: Marrufo Catheter Reason for marrufo catheter: Strict I&O vital signs Vital Sign Date Time Temp Pulse Resp B/P (MAP) Pulse Ox O2 Delivery O2 Flow Rate FiO2 03/03/24 06:29 73 18 97 03/03/24 06:23 Nasal Cannula* 3 32 03/03/24 05:00 98.2 102/56 (71) 98.2 Total Intake and Output 03/02/24 03/02/24 03/03/24 15:00 23:00 07:00 Intake Total 800 ml 800 ml Output Total 750 ml 750 ml Balance 50 ml 50 ml medications Current Medications Medications Dose Ordered Sig/Kourtney Route Start Time Stop Time Status Last Admin Dose Admin Acetaminophen/ Hydrocodone Bitart 1 tab Q4HP PRN PO 02/26/24 17:15 03/01/24 19:04 1 TAB Ondansetron HCl 4 mg Q4HP PRN IV 02/26/24 17:15 02/26/24 21:55 4 MG Acetaminophen 650 mg Q6HP PRN PO 02/26/24 17:15 03/02/24 10:16 650 MG Morphine Sulfate 2 mg Q4HPRN PRN IV 02/26/24 17:15 03/03/24 02:56 2 MG Nitroglycerin 0.4 mg Q5MINP PRN SL 02/26/24 17:15 Morphine Sulfate 2 mg Q30M PRN IV 02/26/24 17:15 Ipratropium [place] 0.5 mg Q6HR NEB 02/27/24 12:45 03/03/24 06:22 0.5 MG Methylprednisolone Sodium Succinate 40 mg Q8HR IV 02/27/24 14:00 03/03/24 06:54 40 MG Atorvastatin Calcium 20 mg HS PO 02/28/24 22:00 03/02/24 21:19 20 MG Furosemide 20 mg DAILY PO 02/28/24 10:00 03/02/24 09:56 20 MG Gabapentin 300 mg TID PO 02/27/24 14:00 03/03/24 06:54 300 MG Pantoprazole Sodium 40 mg DAILY@0600 PO 02/28/24 06:00 03/03/24 06:54 40 MG Diagnostic Test (Pha) 1 strip ACHS 02/28/24 11:30 03/03/24 07:01 1 STRIP Insulin Human Regular HS SC 02/28/24 22:00 03/02/24 21:22 3 UNITS Insulin Human Regular AC SC 02/28/24 11:30 03/03/24 07:01 2 UNITS Dextrose 50 ml UD PRN IV 02/28/24 10:30 Enoxaparin Sodium 40 mg DAILY SC 02/29/24 10:00 03/02/24 09:56 40 MG Docusate Sodium 100 mg BID PO 02/28/24 22:00 03/02/24 21:19 100 MG Levalbuterol HCl 0.625 mg Q6HR NEB 02/29/24 06:00 03/03/24 06:23 0.625 MG Metoprolol Tartrate 50 mg BID PO 02/29/24 22:00 03/02/24 21:21 50 MG Ceftriaxone Sodium 50 ml @ 100 mls/hr DAILY@09 IV 02/29/24 11:45 03/02/24 08:33 100 MLS/HR Doxycycline Monohydrate 100 mg Q12HR PO 02/29/24 22:00 Cancel Budesonide 0.5 mg BID NEB 02/29/24 22:00 03/02/24 19:51 0.5 MG Azithromycin 250 ml @ 125 mls/hr DAILY IV 03/01/24 10:00 03/02/24 09:55 125 MLS/HR Guaifenesin 200 mg Q6HP PRN PO 03/01/24 16:45 03/02/24 01:51 200 MG Nifedipine 30 mg DAILY PO 03/02/24 11:30 03/02/24 11:30 30 MG Polyethylene Glycol 17 gm DAILY PO 03/02/24 11:45 03/02/24 11:45 17 GM Lactulose 30 ml Q8HR PO 03/02/24 14:00 Alprazolam 1 mg Q8HPRN PRN PO 03/02/24 11:45 Zolpidem Tartrate 5 mg HSPRN PRN PO 03/02/24 11:45 03/02/24 21:25 5 MG Lidocaine 1 patch DAILY TOP 03/03/24 10:00 laboratory and microbiology Laboratory Tests 02/28/24 23:05 Test 02/28/24 23:05 Range/Units Serum Glucose 209 H 74-106 mg/dL Assessment/Plan This is a 69-year old female who initially presented (02/26/2024) with shortness of breath and cough with associated orthopnea for approximately 2 days prior to initial arrival. Upon ED arrival, initial twelve lead electrocardiogram was performed revealing sinus tachycardia at 104 bpm with no acute ischemic changes. Initial HS troponin level was found normal at <3 with subsequent level of <3. BNP level was found normal at 12.74. Covid-19, Influenza A/B were found negative. WBC found normal at 5.6. Initial chest x-ray revealed presence of a moderate sized pneumothorax involving the right lung which patient underwent right sided chest tube placement. Subsequent chest x-ray post chest tube placement revealed interval improvement of right pneumothorax. Repeat chest imaging (02/27/2024) revealed presence of a small right apical pneumothorax with chest tube in situ which Pulmonology services have been involved for management. While within the ED, patient was noted to have an episode of tachycardia which upon EKG analysis, there is presence of a narrow-complex tachycardia at 191 bpm with questionable presence of 2:1 atrial flutter which as per ED provider note, patient spontaneously converted back to sinus rhythm. Repeat EKG at the time post spontaneous conversion revealed sinus tachycardia at 105bpm. Initial potassium level found normal at 4.0 with a magnesium level of 2.0. TSH level was found to be 0.49. Current LDL is 145 with an A1C of 6.8. Cardiology services have now been involved for cardiac aspects of care. On tele floor, patient had episode of tachycarrhythmia and she was cardioverted for SVT Past medical history includes obesity, diabetes mellitus, asthma, GERD, hypertension, hyperlipidemia, pulmonary hypertension, old history of hysterectomy and left knee replacement. She does smoke cigarettes. She occasionally uses marijuana. She occasionally drinks alcohol Echocardiogram (08/2023) revealed Left ventricle: Left ventricle is normal size with normal systolic function. LVEF was 65 to 70%. There was no gross wall motion abnormality. Left atrium was normal size. Right-sided chambers were dilated. Aortic valve was trileaflet. There was no aortic insufficiency/stenosis. There was trivial mitral regurgitation. There was mild tricuspid regurgitation. Pulmonary valve was not well-visualized Right ventricular systolic pressure was assessed around 65 mmHg. IVC was dilated. There was no pericardial effusion. venous duplex was negative for lower ext dvt TSH: 0.48, T4 (free): 1.02 (wnl), T3 (free): 1.76 (mildly low) (findings are in favor of subclinical hyperthyroidism) Echo reported: Left ventricle: Left ventricle was normal sized with normal systolic function. LVEF was 65-70%. There was no gross wall motion abnormality. Right ventricle was normal size with normal systolic function. Both atria were normal size. Aortic valve: Aortic valve was trileaflet. There was no aortic insufficiency/stenosis. There was trivial tricuspid and mitral regurgitation. Pulmonic valve was not well visualized. Right ventricular systolic pressure was assessed around 40 mm Hg. There was no pericardial effusion. IVC was normal size with normal respiratory variation. Assessment: Acute hypoxic respiratory failure, secondary to right-sided pneumothorax Right-sided pneumothorax, status post chest tube placement Narrow-complex tachycardia, SVT s/p cardioversion for SVT Abnormal D-Dimer (0.59), likely refractory to pneumothorax Abnormal TSH level (0.49), rule out thyroid dysfunction: subclinical hyperthyroidism Pulmonary hypertension Nicotine dependence Diabetes mellitus II Asthma, history of COPD, history of Hyperlipidemia Hypertension Obesity Plan: Manage on tele As patient initially presented and was noted to have an episode of narrow complex tachycardia, cardiology services were involved for its evaluation. Upon analysis of the EKG during the event, tracing reveals a narrow complex tachycardia at 191 bpm in favor of SVT spontaneously as she converted without intervention. Repeated SVT which required cardioversion. On Metoprolol for now (dose increased). Patient will need to undergo long-term event monitoring on an outpatient basis to further observe for such occult arrhythmias upon discharge. During the interim, recommendation is to proceed with close rate and rhythm surveillance, sustain potassium levels greater than 4.0, sustain magnesium levels greater than 2.0. Will proceed to follow from a cardiac perspective. Further recommendations as per clinical course and the above ordered findings. Metoprolol Tartrate 50mg twice daily for now , if needed you can further taper up Consider further event monitoring (can be arranged outpatient) Follow up renal function/electrolytes and correct abnormalities Management of underlying pneumothorax as per Pulmonology Counseled on importance of tobacco cessation Proceed with close rate and rhythm surveillance Proceed with close hemodynamic surveillance Proceed with optimized blood pressure control Transfuse to sustain HGB level above 7.0 Sustain Magnesium level greater than 2.0 Sustain Potassium level greater than 4.0 Follow up renal function and electrolytes Management in telemetry Follow up Pulmonology recommendations Will proceed to follow from a cardiac perspective Further recommendations per clinical progression All available diagnostic labs, EKG's, and images were personally reviewed Plan of care discussed with and agreed upon by patient / primary RN Prognosis: Guarded Thank you for allowing me to participate in the care of this patient. Further recommendations based on patients clinical course and progression, primary attending, and other consultants. Will continue to follow with primary attending. If you have any questions or concerns, please do not hesitate to contact me. A total of 55 minutes was spent reviewing the patient record, examining the patient, making a diagnostic and therapeutic plan, discussing this plan with medical personnel, following up on diagnostic studies and following the patient for clinical stability excluding any and all procedures. At least 50% of this time was spent in direct, [id number] contact. Dietary Evaluation Review Recommendations by RD: Dietary education by RD Comments: 1) Refer to outpatient RD/CDCES for weight management 2) F/u with field specialist 2) Continue to monitor PO intake and nutrition-related labs. 3) Continue plan of care Expected Outcomes/Goals: 1) appetite and labs to improve 2) f/u in 3-5 days Plan discussed with: Patient, Other (nurse) RODNEY GRISSOM MD Mar 03, 2024 07:38
--- NOTE | 2024-03-03 09:34 | DVH ---
Procedure: CT CHEST WITHOUT CONTRAST Reason for study/Clinical History: anterior pneumothorax Comparison Study: Compared to prior study dated:02/29/24 Exam Date: 03/03/2024 09:00 AM TECHNIQUE: Multidetector CT of the chest was performed from the lung apices to the upper abdomen with out the use of intravenous contract. Axial, coronal and sagittal multiplanar reformats were performed . Radiation Dose Information: CT Dose: CTDI volume is 25.1 mGy. Dose-length product is 838.14 mGy*cm The dose indicators for CT are the volume Computed Tomography (CT) Dose Index (CTDIvol) and the Dose Length Product (DLP), and are measured in units of mGy and mGy-cm, respectively. These indicators are not patient dose, but values generated from the CT scanner acquisition factors. The report includes radiation exposure data for exposures received during this examination. FINDINGS: Lower neck: Normal thyroid. Lungs: Right middle lobe atelectasis/consolidation. Heart/Vascular Structures: Normal heart size. No pericardial effusion. Lymph Nodes: No adenopathy Pleura: No pleural effusion or significant pneumothorax. Right pleural pigtail drainage catheter in s atisfactory position. Musculoskeletal: No acute osseous abnormality. Soft tissues: Moderate size hematoma is present in the right posterolateral chest wall measuring 5.0 cm, unchanged. Moderate subcutaneous emphysema along the right chest wall. Upper abdomen: Limited portions of the upper abdomen are unremarkable. IMPRESSION: Right anterior approach chest tube in satisfactory position. No appreciable pneumothorax. Right middle lobe atelectasis/consolidation. Unchanged moderate hematoma in the right posterolateral chest wall and moderate subcutaneous emphysem a along the right chest wall. Radiation optimization: All CT scans at this facility use at least one of these dose optimization shin hniques: automated exposure control mA and/or kV adjustment per patient size (includes targeted exam s where dose is matched to clinical indication) or iterative reconstruction.
[2024-03-03] MEDS: LIDOCAINE 5% TOPICAL PATCH TOP SCH (10:22)
[2024-03-03] MEDS: ALPRAZolam 0.5 MG TAB PO PRN (10:47)
--- NOTE | 2024-03-03 12:00 | DVHPN2 ---
Progress Note - Dictate Date Seen: Mar 03, 2024 Medical Necessity Reason Pt with a Central, PICC or Fol: Yes The following are medically ne: Marrufo Catheter Reason for marrufo catheter: Strict I&O vital signs Vital Sign Date Time Temp Pulse Resp B/P (MAP) Pulse Ox O2 Delivery O2 Flow Rate FiO2 03/03/24 11:15 61 15 100 03/03/24 11:07 Nasal Cannula 3.0 03/03/24 11:07 32 03/03/24 10:23 127/71 03/03/24 05:00 98.2 98.2 Total Intake and Output 03/02/24 03/02/24 03/03/24 15:00 23:00 07:00 Intake Total 800 ml 800 ml Output Total 750 ml 755 ml Balance 50 ml 45 ml medications Current Medications Medications Dose Ordered Sig/Kourtney Route Start Time Stop Time Status Last Admin Dose Admin Acetaminophen/ Hydrocodone Bitart 1 tab Q4HP PRN PO 02/26/24 17:15 03/03/24 10:47 1 TAB Ondansetron HCl 4 mg Q4HP PRN IV 02/26/24 17:15 02/26/24 21:55 4 MG Acetaminophen 650 mg Q6HP PRN PO 02/26/24 17:15 03/02/24 10:16 650 MG Morphine Sulfate 2 mg Q4HPRN PRN IV 02/26/24 17:15 03/03/24 07:43 2 MG Nitroglycerin 0.4 mg Q5MINP PRN SL 02/26/24 17:15 Morphine Sulfate 2 mg Q30M PRN IV 02/26/24 17:15 Ipratropium [place] 0.5 mg Q6HR NEB 02/27/24 12:45 03/03/24 11:07 0.5 MG Methylprednisolone Sodium Succinate 40 mg Q8HR IV 02/27/24 14:00 03/03/24 06:54 40 MG Atorvastatin Calcium 20 mg HS PO 02/28/24 22:00 03/02/24 21:19 20 MG Furosemide 20 mg DAILY PO 02/28/24 10:00 03/03/24 10:22 20 MG Gabapentin 300 mg TID PO 02/27/24 14:00 03/03/24 06:54 300 MG Pantoprazole Sodium 40 mg DAILY@0600 PO 02/28/24 06:00 03/03/24 06:54 40 MG Diagnostic Test (Pha) 1 strip ACHS 02/28/24 11:30 03/03/24 07:01 1 STRIP Insulin Human Regular HS SC 02/28/24 22:00 03/02/24 21:22 3 UNITS Insulin Human Regular AC SC 02/28/24 11:30 03/03/24 07:01 2 UNITS Dextrose 50 ml UD PRN IV 02/28/24 10:30 Enoxaparin Sodium 40 mg DAILY SC 02/29/24 10:00 03/03/24 10:22 40 MG Docusate Sodium 100 mg BID PO 02/28/24 22:00 03/03/24 10:22 100 MG Levalbuterol HCl 0.625 mg Q6HR NEB 02/29/24 06:00 03/03/24 11:07 0.625 MG Metoprolol Tartrate 50 mg BID PO 02/29/24 22:00 03/03/24 10:23 50 MG Ceftriaxone Sodium 50 ml @ 100 mls/hr DAILY@09 IV 02/29/24 11:45 03/03/24 10:22 100 MLS/HR Doxycycline Monohydrate 100 mg Q12HR PO 02/29/24 22:00 Cancel Budesonide 0.5 mg BID NEB 02/29/24 22:00 03/02/24 19:51 0.5 MG Azithromycin 250 ml @ 125 mls/hr DAILY IV 03/01/24 10:00 03/03/24 11:22 125 MLS/HR Guaifenesin 200 mg Q6HP PRN PO 03/01/24 16:45 03/02/24 01:51 200 MG Nifedipine 30 mg DAILY PO 03/02/24 11:30 03/03/24 10:23 30 MG Alprazolam 1 mg Q8HPRN PRN PO 03/02/24 11:45 03/03/24 10:47 1 MG Zolpidem Tartrate 5 mg HSPRN PRN PO 03/02/24 11:45 03/02/24 21:25 5 MG Lidocaine 1 patch DAILY TOP 03/03/24 10:00 03/03/24 10:22 1 PATCH objective General Appearance: alert, no distress HEENT: EOMI, PERRLA, normal external inspect of ears, no icterus, no nasal drainage Neck: no carotid bruit, no jugular venous distention (JVD), no lymphadenopathy Chest: normal thorax Respiratory: clear to auscultation, normal air movement Cardiovascular: regular rate and rhythm, no diastolic murmur, no jugular venous distention (JVD), no rub, no systolic murmur Abdominal: soft, no hepatomegaly, no mass, no splenomegaly, no tenderness Genitourinary: grossly normal external Musculoskeletal: no joint tenderness, no swelling Extremities: normal pulses, no calf tenderness, no clubbing, no cyanosis, no edema Skin: no bruising, no jaundice, no rash Neurological: alert, No focal deficit laboratory and microbiology Laboratory Tests 02/28/24 23:05 Test 02/28/24 23:05 Range/Units Serum Glucose 209 H 74-106 mg/dL Problem List 1. SOB r/t pneumothorax Monitor, pulmonary consult 2. S/p chest tube placement Monitor 3. GERD Monitor, PPI 4. HLD Monitor, restart home meds 5. COPD Monitor, pulmonary consult 6. SVT Monitor EKG, cardiology consult, beta blockers 7. Elevated D dimer Monitor 8. Pulmonary HTN Monitor, restart home meds Assessment/Plan Subjective Patient is awake alert. Objective Patient states she is doing much better today. Chest tube is currently to waterseal. Chest x-ray is pending. Patient had 2 large bowel movements yesterday. No episodes of breakthrough SVT. Patient remains on metoprolol tartrate 50 mg p.o. twice daily. EF is estimated 65 to 70%. Plan Monitor EKG. Chest tube management per pulmonary. Possible discharge plan after cleared by pulmonary and chest tube removed. Dietary Evaluation Review Recommendations by RD: Dietary education by RD Comments: 1) Refer to outpatient RD/CDCES for weight management 2) F/u with kennel manager dog track 2) Continue to monitor PO intake and nutrition-related labs. 3) Continue plan of care Expected Outcomes/Goals: 1) appetite and labs to improve 2) f/u in 3-5 days Plan discussed with: Patient, Other DALJIT JIM NP Mar 03, 2024 12:00
--- NOTE | 2024-03-03 16:13 | DVH ---
EXAM: XY CHEST XRAY 1 VIEW TECHNIQUE: Single frontal chest radiograph CLINICAL HISTORY: right chest tube-pneumothorax COMPARISON: XY CHEST XRAY 1 VIEW on DOS: 03/03/24, XY CHEST XRAY 1 VIEW on DOS: 03/02/24, XY CHEST XRAY 1 VIEW on DOS: 03/01/24 Findings/Impression: Frontal chest radiograph demonstrates no acute osseous abnormalities. Mild right lateral chest wall subcutaneous emphysema. Right midlung field small bore pigtail chest tube with associated atelectasis. The trachea is midline. The cardiac silhouette and mediastinum are within normal limits. No definite pneumothorax, pleural effusions, or consolidations.
--- NOTE | 2024-03-03 19:21 | DVHPN2 ---
Progress Note - Dictate Date Seen: Mar 03, 2024 Medical Necessity Reason Pt with a Central, PICC or Fol: Yes The following are medically ne: Marrufo Catheter Reason for marrufo catheter: Strict I&O Subjective Patient seen and examined at bedside. Remains on supplemental oxygen Overnight events reviewed. vital signs Vital Sign Date Time Temp Pulse Resp B/P (MAP) Pulse Ox O2 Delivery O2 Flow Rate FiO2 03/03/24 18:15 82 16 100 03/03/24 18:05 Nasal Cannula 3.0 03/03/24 18:05 32 03/03/24 16:54 98.0 105/75 (85) 98.0 Total Intake and Output 03/02/24 03/02/24 03/03/24 15:00 23:00 07:00 Intake Total 800 ml 800 ml Output Total 750 ml 755 ml Balance 50 ml 45 ml medications Current Medications Medications Dose Ordered Sig/Kourtney Route Start Time Stop Time Status Last Admin Dose Admin Acetaminophen/ Hydrocodone Bitart 1 tab Q4HP PRN PO 02/26/24 17:15 03/03/24 10:47 1 TAB Ondansetron HCl 4 mg Q4HP PRN IV 02/26/24 17:15 02/26/24 21:55 4 MG Acetaminophen 650 mg Q6HP PRN PO 02/26/24 17:15 03/02/24 10:16 650 MG Morphine Sulfate 2 mg Q4HPRN PRN IV 02/26/24 17:15 03/03/24 16:10 2 MG Nitroglycerin 0.4 mg Q5MINP PRN SL 02/26/24 17:15 Morphine Sulfate 2 mg Q30M PRN IV 02/26/24 17:15 Ipratropium [place] 0.5 mg Q6HR NEB 02/27/24 12:45 03/03/24 18:15 0.5 MG Methylprednisolone Sodium Succinate 40 mg Q8HR IV 02/27/24 14:00 03/03/24 14:32 40 MG Atorvastatin Calcium 20 mg HS PO 02/28/24 22:00 03/02/24 21:19 20 MG Furosemide 20 mg DAILY PO 02/28/24 10:00 03/03/24 10:22 20 MG Gabapentin 300 mg TID PO 02/27/24 14:00 03/03/24 14:32 300 MG Pantoprazole Sodium 40 mg DAILY@0600 PO 02/28/24 06:00 03/03/24 06:54 40 MG Diagnostic Test (Pha) 1 strip ACHS 02/28/24 11:30 03/03/24 17:00 1 STRIP Insulin Human Regular HS SC 02/28/24 22:00 03/02/24 21:22 3 UNITS Insulin Human Regular AC SC 02/28/24 11:30 03/03/24 17:00 3 UNITS Dextrose 50 ml UD PRN IV 02/28/24 10:30 Enoxaparin Sodium 40 mg DAILY SC 02/29/24 10:00 03/03/24 10:22 40 MG Docusate Sodium 100 mg BID PO 02/28/24 22:00 03/03/24 10:22 100 MG Levalbuterol HCl 0.625 mg Q6HR NEB 02/29/24 06:00 03/03/24 18:16 0.625 MG Metoprolol Tartrate 50 mg BID PO 02/29/24 22:00 03/03/24 10:23 50 MG Ceftriaxone Sodium 50 ml @ 100 mls/hr DAILY@09 IV 02/29/24 11:45 03/03/24 10:22 100 MLS/HR Doxycycline Monohydrate 100 mg Q12HR PO 02/29/24 22:00 Cancel Budesonide 0.5 mg BID NEB 02/29/24 22:00 03/03/24 18:16 0.5 MG Azithromycin 250 ml @ 125 mls/hr DAILY IV 03/01/24 10:00 03/03/24 11:22 125 MLS/HR Guaifenesin 200 mg Q6HP PRN PO 03/01/24 16:45 03/02/24 01:51 200 MG Nifedipine 30 mg DAILY PO 03/02/24 11:30 03/03/24 10:23 30 MG Alprazolam 1 mg Q8HPRN PRN PO 03/02/24 11:45 03/03/24 18:45 1 MG Zolpidem Tartrate 5 mg HSPRN PRN PO 03/02/24 11:45 03/02/24 21:25 5 MG Lidocaine 1 patch DAILY TOP 03/03/24 10:00 03/03/24 10:22 1 PATCH objective Gen.: Patient lying in bed in no apparent distress. On supplemental oxygen. Head: Normocephalic, atraumatic. Eyes: EOMI/PERRLA. Ears: Normal hearing. Normal anatomy. Neck/trachea: Trachea midline, supple. Nose: Normal external anatomy. Mouth: Moist mucous membranes. Chest: Decreased air entry bilaterally. Wheezing. No rhonchi. Cardiovascular: Positive S1, positive S2. Regular rate and rhythm. Abdomen: Positive bowel sounds in all 4 quadrants. Soft, non-tender, non- distended. : Deferred. Rectal: Deferred. Skin: Warm, dry. Intact. Extremities: 2+ radial pulses bilaterally. No lower extremity edema. Neuro: Awake, alert, oriented x3. No gross motor or sensory deficits. Cranial nerves II through XII intact. Gait not assessed. laboratory and microbiology Laboratory Tests 02/28/24 23:05 Test 02/28/24 23:05 Range/Units Serum Glucose 209 H 74-106 mg/dL Assessment/Plan Impression: Acute hypoxic respiratory failure Right pneumothorax status post chest tube placement COPD Asthma Obesity with a BMI of 33.6 Atelectasis DM type II with hyperglycemia Elevated d-dimer Events: Remains on supplemental oxygen, 3 LPM NC Taper O2 as tolerated CXR reviewed, decreased right pleural effusion. Subcutaneous emphysema in the right chest wall. Right chest tube in place. CT chest shows no pneumothorax. Chest tube drained 125 mL sanguineous fluid Placed chest tube to water seal. Continue to monitor output Patient is feeling better. Obtain repeat chest x-ray at 1500 hours. Continue bronchodilators IV steroids Solu-Medrol 40 mg q.8 hours Continue antibiotics Incentive spirometry Pain control Avoid oversedation Labs and imaging reviewed. Rest of plan as noted below. Plan: Chest tube in place Chest tube placed to -20 cmH2O continuous LWS. CXR demonstrates right chest tube in place with right lung re-expansion. Monitor for air leak. Daily CXR Supplemental o2 Keep o2 sat above 92% IS for atelectasis Pain control Avoid oversedation Accu-Cheks, ISS Elevated d-dimer, likely reactive due to pneumothorax. DVT prophylaxis- Lovenox Prognosis: Poor given multiple comorbidities. Rest of plan per hospitalist and other consultants. Thank you Dr. Montesinos/LIA Carrington for allowing me to participate in this patient's care. Further recommendations will depend on patient's clinical course. Please do not hesitate to contact me if you have any questions or concerns. This medical document was created using an electronic medical record system with [employer] dictation system. Although this document has been carefully reviewed, there may still be some phonetic and typographical errors. These areas are purely typographical due to imperfections of the software programs, and do not reflect any compromise in the patient's medical care. Dietary Evaluation Review Recommendations by RD: Dietary education by RD Comments: 1) Refer to outpatient RD/CDCES for weight management 2) F/u with remediation consultant 2) Continue to monitor PO intake and nutrition-related labs. 3) Continue plan of care Expected Outcomes/Goals: 1) appetite and labs to improve 2) f/u in 3-5 days Plan discussed with: Patient, Other (STEVE Lweis) WADE PATEL MD Mar 03, 2024 19:21
[2024-03-04] VITALS (14 sets, daily range): BP systolic 108–128; BP diastolic 68–77; PULSE 55–96; RESP 14–20; TEMP 97.4–98.5; O2SAT 94–100
--- NOTE | 2024-03-04 05:29 | DVH ---
CHEST RADIOGRAPH Indication: interval changes in pneumothorax Technique: Single frontal view of the chest was obtained COMPARISON: XY CHEST XRAY 1 VIEW on DOS: 03/03/24, XY CHEST XRAY 1 VIEW on DOS: 03/03/24, XY CHEST XRAY 1 VIEW on DOS: 03/02/24, XY CHEST XRAY 1 VIEW on DOS: 03/01/24, XY CHEST PORTABLE on DOS: 02/29/24 FINDINGS: Lines and Tubes: Right chest tube in satisfactory position. Lungs: Clear Pleura: No effusion. No pneumothorax. Cardiomediastinal contours: Subcutaneous emphysema along the right chest wall. Bones: Unremarkable IMPRESSION: No appreciable pneumothorax with right chest tube in-situ.
--- NOTE | 2024-03-04 07:49 | DVHPN2 ---
Progress Note - Dictate Date Seen: Mar 04, 2024 Medical Necessity Reason Pt with a Central, PICC or Fol: Yes The following are medically ne: Marrufo Catheter Reason for marrufo catheter: Strict I&O vital signs Vital Sign Date Time Temp Pulse Resp B/P (MAP) Pulse Ox O2 Delivery O2 Flow Rate FiO2 03/04/24 06:49 74 18 108/78 03/04/24 05:00 98.5 96 98.5 03/04/24 01:24 3.0 32 03/03/24 20:00 Nasal Cannula* Total Intake and Output 03/03/24 03/03/24 03/04/24 14:59 22:59 06:59 Intake Total 50 ml 720 ml 850 ml Output Total 5 ml 825 ml 1100 ml Balance 45 ml -105 ml -250 ml medications Current Medications Medications Dose Ordered Sig/Kourtney Route Start Time Stop Time Status Last Admin Dose Admin Acetaminophen/ Hydrocodone Bitart 1 tab Q4HP PRN PO 02/26/24 17:15 03/03/24 10:47 1 TAB Ondansetron HCl 4 mg Q4HP PRN IV 02/26/24 17:15 02/26/24 21:55 4 MG Acetaminophen 650 mg Q6HP PRN PO 02/26/24 17:15 03/02/24 10:16 650 MG Morphine Sulfate 2 mg Q4HPRN PRN IV 02/26/24 17:15 03/04/24 06:19 2 MG Nitroglycerin 0.4 mg Q5MINP PRN SL 02/26/24 17:15 Morphine Sulfate 2 mg Q30M PRN IV 02/26/24 17:15 Ipratropium [place] 0.5 mg Q6HR NEB 02/27/24 12:45 03/04/24 07:45 0.5 MG Methylprednisolone Sodium Succinate 40 mg Q8HR IV 02/27/24 14:00 03/04/24 05:46 40 MG Atorvastatin Calcium 20 mg HS PO 02/28/24 22:00 03/03/24 21:18 20 MG Furosemide 20 mg DAILY PO 02/28/24 10:00 03/03/24 10:22 20 MG Gabapentin 300 mg TID PO 02/27/24 14:00 03/04/24 05:46 300 MG Pantoprazole Sodium 40 mg DAILY@0600 PO 02/28/24 06:00 03/04/24 05:46 40 MG Diagnostic Test (Pha) 1 strip ACHS 02/28/24 11:30 03/04/24 06:06 1 STRIP Insulin Human Regular HS SC 02/28/24 22:00 03/03/24 21:41 3 UNITS Insulin Human Regular AC SC 02/28/24 11:30 03/04/24 06:18 2 UNITS Dextrose 50 ml UD PRN IV 02/28/24 10:30 Enoxaparin Sodium 40 mg DAILY SC 02/29/24 10:00 03/03/24 10:22 40 MG Docusate Sodium 100 mg BID PO 02/28/24 22:00 03/03/24 21:18 100 MG Levalbuterol HCl 0.625 mg Q6HR NEB 02/29/24 06:00 03/04/24 07:45 0.625 MG Metoprolol Tartrate 50 mg BID PO 02/29/24 22:00 03/03/24 21:21 50 MG Ceftriaxone Sodium 50 ml @ 100 mls/hr DAILY@09 IV 02/29/24 11:45 03/03/24 10:22 100 MLS/HR Doxycycline Monohydrate 100 mg Q12HR PO 02/29/24 22:00 Cancel Budesonide 0.5 mg BID NEB 02/29/24 22:00 03/04/24 07:45 0.5 MG Azithromycin 250 ml @ 125 mls/hr DAILY IV 03/01/24 10:00 03/03/24 11:22 125 MLS/HR Guaifenesin 200 mg Q6HP PRN PO 03/01/24 16:45 03/02/24 01:51 200 MG Nifedipine 30 mg DAILY PO 03/02/24 11:30 03/03/24 10:23 30 MG Alprazolam 1 mg Q8HPRN PRN PO 03/02/24 11:45 03/03/24 18:45 1 MG Zolpidem Tartrate 5 mg HSPRN PRN PO 03/02/24 11:45 03/03/24 21:20 5 MG Lidocaine 1 patch DAILY TOP 03/03/24 10:00 03/03/24 10:22 1 PATCH laboratory and microbiology Laboratory Tests 02/28/24 23:05 Test 02/28/24 23:05 Range/Units Serum Glucose 209 H 74-106 mg/dL Assessment/Plan This is a 69-year old female who initially presented (02/26/2024) with shortness of breath and cough with associated orthopnea for approximately 2 days prior to initial arrival. Upon ED arrival, initial twelve lead electrocardiogram was performed revealing sinus tachycardia at 104 bpm with no acute ischemic changes. Initial HS troponin level was found normal at <3 with subsequent level of <3. BNP level was found normal at 12.74. Covid-19, Influenza A/B were found negative. WBC found normal at 5.6. Initial chest x-ray revealed presence of a moderate sized pneumothorax involving the right lung which patient underwent right sided chest tube placement. Subsequent chest x-ray post chest tube placement revealed interval improvement of right pneumothorax. Repeat chest imaging (02/27/2024) revealed presence of a small right apical pneumothorax with chest tube in situ which Pulmonology services have been involved for management. While within the ED, patient was noted to have an episode of tachycardia which upon EKG analysis, there is presence of a narrow-complex tachycardia at 191 bpm with questionable presence of 2:1 atrial flutter which as per ED provider note, patient spontaneously converted back to sinus rhythm. Repeat EKG at the time post spontaneous conversion revealed sinus tachycardia at 105bpm. Initial potassium level found normal at 4.0 with a magnesium level of 2.0. TSH level was found to be 0.49. Current LDL is 145 with an A1C of 6.8. Cardiology services have now been involved for cardiac aspects of care. On tele floor, patient had episode of tachycarrhythmia and she was cardioverted for SVT Past medical history includes obesity, diabetes mellitus, asthma, GERD, hypertension, hyperlipidemia, pulmonary hypertension, old history of hysterectomy and left knee replacement. She does smoke cigarettes. She occasionally uses marijuana. She occasionally drinks alcohol Echocardiogram (08/2023) revealed Left ventricle: Left ventricle is normal size with normal systolic function. LVEF was 65 to 70%. There was no gross wall motion abnormality. Left atrium was normal size. Right-sided chambers were dilated. Aortic valve was trileaflet. There was no aortic insufficiency/stenosis. There was trivial mitral regurgitation. There was mild tricuspid regurgitation. Pulmonary valve was not well-visualized Right ventricular systolic pressure was assessed around 65 mmHg. IVC was dilated. There was no pericardial effusion. venous duplex was negative for lower ext dvt TSH: 0.48, T4 (free): 1.02 (wnl), T3 (free): 1.76 (mildly low) (findings are in favor of subclinical hyperthyroidism) Echo reported: Left ventricle: Left ventricle was normal sized with normal systolic function. LVEF was 65-70%. There was no gross wall motion abnormality. Right ventricle was normal size with normal systolic function. Both atria were normal size. Aortic valve: Aortic valve was trileaflet. There was no aortic insufficiency/stenosis. There was trivial tricuspid and mitral regurgitation. Pulmonic valve was not well visualized. Right ventricular systolic pressure was assessed around 40 mm Hg. There was no pericardial effusion. IVC was normal size with normal respiratory variation. Assessment: Acute hypoxic respiratory failure, secondary to right-sided pneumothorax Right-sided pneumothorax, status post chest tube placement Narrow-complex tachycardia, SVT s/p cardioversion for SVT Abnormal D-Dimer (0.59), likely refractory to pneumothorax Abnormal TSH level (0.49), rule out thyroid dysfunction: subclinical hyperthyroidism Pulmonary hypertension Nicotine dependence Diabetes mellitus II Asthma, history of COPD, history of Hyperlipidemia Hypertension Obesity Plan: Manage on tele As patient initially presented and was noted to have an episode of narrow complex tachycardia, cardiology services were involved for its evaluation. Upon analysis of the EKG during the event, tracing reveals a narrow complex tachycardia at 191 bpm in favor of SVT spontaneously as she converted without intervention. Repeated SVT which required cardioversion. On Metoprolol for now (dose increased). Patient will need to undergo long-term event monitoring on an outpatient basis to further observe for such occult arrhythmias upon discharge. During the interim, recommendation is to proceed with close rate and rhythm surveillance, sustain potassium levels greater than 4.0, sustain magnesium levels greater than 2.0. Will proceed to follow from a cardiac perspective. Further recommendations as per clinical course and the above ordered findings. Metoprolol Tartrate 50mg twice daily for now , if needed you can further taper up Consider further event monitoring (can be arranged outpatient) Follow up renal function/electrolytes and correct abnormalities Management of underlying pneumothorax as per Pulmonology Counseled on importance of tobacco cessation Proceed with close rate and rhythm surveillance Proceed with close hemodynamic surveillance Proceed with optimized blood pressure control Transfuse to sustain HGB level above 7.0 Sustain Magnesium level greater than 2.0 Sustain Potassium level greater than 4.0 Follow up renal function and electrolytes Management in telemetry Follow up Pulmonology recommendations Will proceed to follow from a cardiac perspective Further recommendations per clinical progression All available diagnostic labs, EKG's, and images were personally reviewed Plan of care discussed with and agreed upon by patient / primary RN Prognosis: Guarded Thank you for allowing me to participate in the care of this patient. Further recommendations based on patients clinical course and progression, primary attending, and other consultants. Will continue to follow with primary attending. If you have any questions or concerns, please do not hesitate to contact me. A total of 55 minutes was spent reviewing the patient record, examining the patient, making a diagnostic and therapeutic plan, discussing this plan with medical personnel, following up on diagnostic studies and following the patient for clinical stability excluding any and all procedures. At least 50% of this time was spent in direct, [id number] contact. Dietary Evaluation Review Recommendations by RD: Dietary education by RD Comments: 1) Refer to outpatient RD/CDCES for weight management 2) F/u with conduit mechanic 2) Continue to monitor PO intake and nutrition-related labs. 3) Continue plan of care Expected Outcomes/Goals: 1) appetite and labs to improve 2) f/u in 3-5 days Plan discussed with: Patient, Other (nurse) RODNEY GRISSOM MD Mar 04, 2024 07:49
--- NOTE | 2024-03-04 19:11 | DVH ---
CHEST RADIOGRAPH Indication: REMOVAL OF RIGHT CHEST TUBE Technique: Single frontal view of the chest was obtained Comparison: XY CHEST XRAY 1 VIEW on DOS: 03/04/24, XY CHEST XRAY 1 VIEW on DOS: 03/03/24, XY CHEST XRAY 1 VIEW on DOS: 03/03/24 Findings/ IMPRESSION: No active cardiopulmonary disease. Interval thickening of bandlike opacification in the right mid fam ng zone. Interval removal of the right-sided chest tube.
--- NOTE | 2024-03-04 21:34 | DVHPN2 ---
Progress Note Date Seen: Mar 04, 2024 Medical Necessity Reason Pt with a Central, PICC or Fol: Yes The following are medically ne: Marrufo Catheter Reason for marrufo catheter: Strict I&O Subjective Review of Systems: CVS:Normal, RESPIRATORY:Abnormal (Short of breath) Objective vital signs Vital Sign Date Time Temp Pulse Resp B/P (MAP) Pulse Ox O2 Delivery O2 Flow Rate FiO2 03/04/24 16:44 97.9 70 16 127/77 (94) 100 97.9 03/04/24 10:00 Nasal Cannula 2.0 03/04/24 10:00 28 Total Intake and Output 03/03/24 03/03/24 03/04/24 15:00 23:00 07:00 Intake Total 50 ml 720 ml 850 ml Output Total 825 ml 1120 ml Balance 50 ml -105 ml -270 ml medications Current Medications Medications Dose Ordered Sig/Kourtney Route Start Time Stop Time Status Last Admin Dose Admin Acetaminophen/ Hydrocodone Bitart 1 tab Q4HP PRN PO 02/26/24 17:15 03/04/24 17:12 1 TAB Ondansetron HCl 4 mg Q4HP PRN IV 02/26/24 17:15 02/26/24 21:55 4 MG Acetaminophen 650 mg Q6HP PRN PO 02/26/24 17:15 03/02/24 10:16 650 MG Morphine Sulfate 2 mg Q4HPRN PRN IV 02/26/24 17:15 03/04/24 06:19 2 MG Nitroglycerin 0.4 mg Q5MINP PRN SL 02/26/24 17:15 Morphine Sulfate 2 mg Q30M PRN IV 02/26/24 17:15 Ipratropium [place] 0.5 mg Q6HR NEB 02/27/24 12:45 03/04/24 07:45 0.5 MG Methylprednisolone Sodium Succinate 40 mg Q8HR IV 02/27/24 14:00 03/04/24 05:46 40 MG Atorvastatin Calcium 20 mg HS PO 02/28/24 22:00 03/03/24 21:18 20 MG Furosemide 20 mg DAILY PO 02/28/24 10:00 03/04/24 09:03 20 MG Gabapentin 300 mg TID PO 02/27/24 14:00 03/04/24 15:17 300 MG Pantoprazole Sodium 40 mg DAILY@0600 PO 02/28/24 06:00 03/04/24 05:46 40 MG Diagnostic Test (Pha) 1 strip ACHS 02/28/24 11:30 03/04/24 17:00 1 STRIP Insulin Human Regular HS SC 02/28/24 22:00 03/03/24 21:41 3 UNITS Insulin Human Regular AC SC 02/28/24 11:30 03/04/24 17:00 3 UNITS Dextrose 50 ml UD PRN IV 02/28/24 10:30 Enoxaparin Sodium 40 mg DAILY SC 02/29/24 10:00 03/04/24 08:48 40 MG Docusate Sodium 100 mg BID PO 02/28/24 22:00 03/04/24 08:47 100 MG Levalbuterol HCl 0.625 mg Q6HR NEB 02/29/24 06:00 03/04/24 07:45 0.625 MG Metoprolol Tartrate 50 mg BID PO 02/29/24 22:00 03/04/24 09:02 50 MG Doxycycline Monohydrate 100 mg Q12HR PO 02/29/24 22:00 Cancel Budesonide 0.5 mg BID NEB 02/29/24 22:00 03/04/24 07:45 0.5 MG Guaifenesin 200 mg Q6HP PRN PO 03/01/24 16:45 03/02/24 01:51 200 MG Nifedipine 30 mg DAILY PO 03/02/24 11:30 03/04/24 09:03 30 MG Alprazolam 1 mg Q8HPRN PRN PO 03/02/24 11:45 03/04/24 17:12 1 MG Zolpidem Tartrate 5 mg HSPRN PRN PO 03/02/24 11:45 03/03/24 21:20 5 MG Lidocaine 1 patch DAILY TOP 03/03/24 10:00 03/04/24 08:48 1 PATCH Azithromycin 500 mg DAILY PO 03/05/24 10:00 Examination: GENERAL:Normal, LUNGS:Abnormal (Diminished on right side), CVS:Normal, ABDOMEN:Normal, SKIN:Normal, NEURO:Normal laboratory and microbiology Laboratory Tests 02/28/24 23:05 Test 02/28/24 23:05 Range/Units Serum Glucose 209 H 74-106 mg/dL Labs and/or images reviewed: Labs reviewed by me, Image(s) reviewed by me Problem List/Assessment/Plan Problem List/Assessment/Plan 1. SOB r/t pneumothorax Monitor, pulmonary consult 2. S/p chest tube placement Monitor 3. GERD Monitor, PPI 4. HLD Monitor, restart home meds 5. COPD Monitor, pulmonary consult 6. SVT Monitor EKG, cardiology consult, beta blockers 7. Elevated D dimer Monitor 8. Pulmonary HTN Monitor, restart home meds Assessment/Plan Subjective Patient is awake alert. Objective Patient states she is doing much better today. Chest x-ray showed improvement of pneumothorax, chest tube was removed today by software development project manager.. No episodes of breakthrough SVT. Patient remains on metoprolol tartrate 50 mg p.o. twice daily. EF is estimated 65 to 70%. Plan Monitor EKG. Possible discharge plan after cleared by pulmonary, monitor chest x-ray Plan discussed with: Patient Dietary Evaluation Review Recommendations by RD: Dietary education by RD Comments: 1) Refer to outpatient RD/CDCES for weight management 2) F/u with software development project manager 2) Continue to monitor PO intake and nutrition-related labs. 3) Continue plan of care Expected Outcomes/Goals: 1) appetite and labs to improve 2) f/u in 3-5 days Date of Service: Mar 04, 2024 Billing Provider: YUNG RAPHAEL MD Common Visit Codes: 22475-[id number] INP/OBS CARE (MOD) MANNY PADILLA ALARM ADJUSTER Mar 04, 2024 21:34
--- NOTE | 2024-03-04 23:13 | DVHPN2 ---
Progress Note - Dictate Date Seen: Mar 04, 2024 Medical Necessity Reason Pt with a Central, PICC or Fol: Yes The following are medically ne: Marrufo Catheter Reason for marrufo catheter: Strict I&O Subjective Patient seen and examined at bedside. On room air. Overnight events reviewed. vital signs Vital Sign Date Time Temp Pulse Resp B/P (MAP) Pulse Ox O2 Delivery O2 Flow Rate FiO2 03/04/24 21:52 77 115/77 03/04/24 21:00 97.6 17 98 97.6 03/04/24 20:00 Nasal Cannula* 2 28 Total Intake and Output 03/03/24 03/03/24 03/04/24 15:00 23:00 07:00 Intake Total 50 ml 720 ml 850 ml Output Total 825 ml 1120 ml Balance 50 ml -105 ml -270 ml medications Current Medications Medications Dose Ordered Sig/Kourtney Route Start Time Stop Time Status Last Admin Dose Admin Acetaminophen/ Hydrocodone Bitart 1 tab Q4HP PRN PO 02/26/24 17:15 03/04/24 21:50 1 TAB Ondansetron HCl 4 mg Q4HP PRN IV 02/26/24 17:15 02/26/24 21:55 4 MG Acetaminophen 650 mg Q6HP PRN PO 02/26/24 17:15 03/02/24 10:16 650 MG Morphine Sulfate 2 mg Q4HPRN PRN IV 02/26/24 17:15 03/04/24 06:19 2 MG Nitroglycerin 0.4 mg Q5MINP PRN SL 02/26/24 17:15 Morphine Sulfate 2 mg Q30M PRN IV 02/26/24 17:15 Ipratropium Rebecca 0.5 mg Q6HR NEB 02/27/24 12:45 03/04/24 07:45 0.5 MG Methylprednisolone Sodium Succinate 40 mg Q8HR IV 02/27/24 14:00 03/04/24 05:46 40 MG Atorvastatin Calcium 20 mg HS PO 02/28/24 22:00 03/04/24 21:51 20 MG Furosemide 20 mg DAILY PO 02/28/24 10:00 03/04/24 09:03 20 MG Gabapentin 300 mg TID PO 02/27/24 14:00 03/04/24 21:50 300 MG Pantoprazole Sodium 40 mg DAILY@0600 PO 02/28/24 06:00 1/3/25 05:46 40 MG Diagnostic Test (Pha) 1 strip ACHS 02/28/24 11:30 03/04/24 21:52 1 STRIP Insulin Human Regular HS SC 02/28/24 22:00 03/04/24 21:53 2 UNITS Insulin Human Regular AC SC 02/28/24 11:30 03/04/24 17:00 3 UNITS Dextrose 50 ml UD PRN IV 02/28/24 10:30 Enoxaparin Sodium 40 mg DAILY SC 02/29/24 10:00 03/04/24 08:48 40 MG Docusate Sodium 100 mg BID PO 02/28/24 22:00 03/04/24 21:51 100 MG Levalbuterol HCl 0.625 mg Q6HR NEB 02/29/24 06:00 03/04/24 07:45 0.625 MG Metoprolol Tartrate 50 mg BID PO 02/29/24 22:00 03/04/24 21:52 50 MG Doxycycline Monohydrate 100 mg Q12HR PO 02/29/24 22:00 Cancel Budesonide 0.5 mg BID NEB 02/29/24 22:00 03/04/24 07:45 0.5 MG Guaifenesin 200 mg Q6HP PRN PO 03/01/24 16:45 03/02/24 01:51 200 MG Nifedipine 30 mg DAILY PO 03/02/24 11:30 03/04/24 09:03 30 MG Alprazolam 1 mg Q8HPRN PRN PO 03/02/24 11:45 03/04/24 17:12 1 MG Zolpidem Tartrate 5 mg HSPRN PRN PO 03/02/24 11:45 03/04/24 21:51 5 MG Lidocaine 1 patch DAILY TOP 03/03/24 10:00 03/04/24 08:48 1 PATCH Azithromycin 500 mg DAILY PO 03/05/24 10:00 objective Gen.: Patient lying in bed in no apparent distress. On room air. Head: Normocephalic, atraumatic. Eyes: EOMI/PERRLA. Ears: Normal hearing. Normal anatomy. Neck/trachea: Trachea midline, supple. Nose: Normal external anatomy. Mouth: Moist mucous membranes. Chest: Decreased air entry bilaterally. Wheezing. No rhonchi. Cardiovascular: Positive S1, positive S2. Regular rate and rhythm. Abdomen: Positive bowel sounds in all 4 quadrants. Soft, non-tender, non- distended. : Deferred. Rectal: Deferred. Skin: Warm, dry. Intact. Extremities: 2+ radial pulses bilaterally. No lower extremity edema. Neuro: Awake, alert, oriented x3. No gross motor or sensory deficits. Cranial nerves II through XII intact. Gait not assessed. laboratory and microbiology Laboratory Tests 02/28/24 23:05 Test 02/28/24 23:05 Range/Units Serum Glucose 209 H 74-106 mg/dL Assessment/Plan Impression: Acute hypoxic respiratory failure Right pneumothorax status post chest tube placement COPD Asthma Obesity with a BMI of 33.6 Atelectasis DM type II with hyperglycemia Elevated d-dimer Events: Breathing on room air No respiratory distress. Supplemental o2 PRN Patient is status post right chest tube removal. Chest x-ray post procedure is pending. Incentive spirometry Continue bronchodilators Continue antibiotics Obtain CXR in the AM for interval changes Labs and imaging reviewed. Rest of plan as noted below. Plan: Supplemental o2 PRN Keep o2 sat above 92% S/p removal of right chest tube IS for atelectasis Pain control Avoid oversedation Accu-Cheks, ISS Elevated D-dimer, likely reactive due to pneumothorax. DVT prophylaxis- Lovenox Prognosis: Poor given multiple comorbidities. Rest of plan per hospitalist and other consultants. Thank you Dr. Montesinos/LIA Carrington for allowing me to participate in this patient's care. Further recommendations will depend on patient's clinical course. Please do not hesitate to contact me if you have any questions or concerns. This medical document was created using an electronic medical record system with [employer] dictation system. Although this document has been carefully reviewed, there may still be some phonetic and typographical errors. These areas are purely typographical due to imperfections of the software programs, and do not reflect any compromise in the patient's medical care. 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 3) Continue plan of care Expected Outcomes/Goals: 1) appetite and labs to improve 2) f/u in 3-5 days Plan discussed with: Patient, Other (RN Rawya) WADE PATEL MD Mar 04, 2024 23:13
[2024-03-05] VITALS (17 sets, daily range): BP systolic 92–108; BP diastolic 46–70; PULSE 54–82; RESP 16–22; TEMP 97.3–98.4; O2SAT 92–100
--- NOTE | 2024-03-05 05:56 | DVH ---
CHEST RADIOGRAPH Indication: removal of chest tube Technique: Single frontal view of the chest was obtained Comparison: XY CHEST XRAY 1 VIEW on DOS: 03/04/24, XY CHEST XRAY 1 VIEW on DOS: 03/04/24, XY CHEST XRAY 1 VIEW on DOS: 03/03/24 IMPRESSION: Patchy opacity in the right lung has improved. No sizable effusion or discrete pneumothorax. Mild pe rsistent subcutaneous emphysema along the right chest wall.
[2024-03-05] MEDS: AZITHROMYCIN 250 MG TAB PO SCH (10:07)
--- NOTE | 2024-03-05 10:58 | DVHPN2 ---
Progress Note - Dictate Date Seen: Mar 05, 2024 Medical Necessity Reason Pt with a Central, PICC or Fol: Yes The following are medically ne: Marrufo Catheter Reason for marrufo catheter: Strict I&O vital signs Vital Sign Date Time Temp Pulse Resp B/P (MAP) Pulse Ox O2 Delivery O2 Flow Rate FiO2 03/05/24 09:58 113/76 03/05/24 09:55 76 03/05/24 07:45 98.2 22 95 98.2 03/05/24 07:11 Nasal Cannula* 3 32 Total Intake and Output 03/04/24 03/04/24 03/05/24 15:00 23:00 07:00 Intake Total 960 ml 0 ml Output Total 800 ml 600 ml Balance 160 ml -600 ml medications Current Medications Medications Dose Ordered Sig/Kourtney Route Start Time Stop Time Status Last Admin Dose Admin Acetaminophen/ Hydrocodone Bitart 1 tab Q4HP PRN PO 02/26/24 17:15 03/05/24 10:08 1 TAB Ondansetron HCl 4 mg Q4HP PRN IV 02/26/24 17:15 02/26/24 21:55 4 MG Acetaminophen 650 mg Q6HP PRN PO 02/26/24 17:15 03/02/24 10:16 650 MG Morphine Sulfate 2 mg Q4HPRN PRN IV 02/26/24 17:15 03/04/24 06:19 2 MG Nitroglycerin 0.4 mg Q5MINP PRN SL 02/26/24 17:15 Morphine Sulfate 2 mg Q30M PRN IV 02/26/24 17:15 Ipratropium [place] 0.5 mg Q6HR NEB 02/27/24 12:45 03/05/24 07:10 0.5 MG Methylprednisolone Sodium Succinate 40 mg Q8HR IV 02/27/24 14:00 03/04/24 05:46 40 MG Atorvastatin Calcium 20 mg HS PO 02/28/24 22:00 03/04/24 21:51 20 MG Furosemide 20 mg DAILY PO 02/28/24 10:00 03/05/24 09:55 20 MG Gabapentin 300 mg TID PO 02/27/24 14:00 03/05/24 05:35 300 MG Pantoprazole Sodium 40 mg DAILY@0600 PO 02/28/24 06:00 03/05/24 05:35 40 MG Diagnostic Test (Pha) 1 strip ACHS 02/28/24 11:30 03/05/24 07:01 1 STRIP Insulin Human Regular HS SC 02/28/24 22:00 03/04/24 21:53 2 UNITS Insulin Human Regular AC SC 02/28/24 11:30 03/04/24 17:00 3 UNITS Dextrose 50 ml UD PRN IV 02/28/24 10:30 Enoxaparin Sodium 40 mg DAILY SC 02/29/24 10:00 03/05/24 09:52 40 MG Docusate Sodium 100 mg BID PO 02/28/24 22:00 03/05/24 09:56 100 MG Levalbuterol HCl 0.625 mg Q6HR NEB 02/29/24 06:00 03/05/24 07:11 0.625 MG Metoprolol Tartrate 50 mg BID PO 02/29/24 22:00 03/05/24 09:55 50 MG Doxycycline Monohydrate 100 mg Q12HR PO 02/29/24 22:00 Cancel Budesonide 0.5 mg BID NEB 02/29/24 22:00 03/05/24 07:11 0.5 MG Guaifenesin 200 mg Q6HP PRN PO 03/01/24 16:45 03/02/24 01:51 200 MG Nifedipine 30 mg DAILY PO 03/02/24 11:30 03/05/24 09:58 30 MG Alprazolam 1 mg Q8HPRN PRN PO 03/02/24 11:45 03/04/24 17:12 1 MG Zolpidem Tartrate 5 mg HSPRN PRN PO 03/02/24 11:45 03/04/24 21:51 5 MG Lidocaine 1 patch DAILY TOP 03/03/24 10:00 03/05/24 09:52 1 PATCH Azithromycin 500 mg DAILY PO 03/05/24 10:00 03/05/24 10:07 500 MG laboratory and microbiology Laboratory Tests 02/28/24 23:05 Test 02/28/24 23:05 Range/Units Serum Glucose 209 H 74-106 mg/dL Assessment/Plan This is a 69-year old female who initially presented (02/26/2024) with shortness of breath and cough with associated orthopnea for approximately 2 days prior to initial arrival. Upon ED arrival, initial twelve lead electrocardiogram was performed revealing sinus tachycardia at 104 bpm with no acute ischemic changes. Initial HS troponin level was found normal at <3 with subsequent level of <3. BNP level was found normal at 12.74. Covid-19, Influenza A/B were found negative. WBC found normal at 5.6. Initial chest x-ray revealed presence of a moderate sized pneumothorax involving the right lung which patient underwent right sided chest tube placement. Subsequent chest x-ray post chest tube placement revealed interval improvement of right pneumothorax. Repeat chest imaging (02/27/2024) revealed presence of a small right apical pneumothorax with chest tube in situ which Pulmonology services have been involved for management. While within the ED, patient was noted to have an episode of tachycardia which upon EKG analysis, there is presence of a narrow-complex tachycardia at 191 bpm with questionable presence of 2:1 atrial flutter which as per ED provider note, patient spontaneously converted back to sinus rhythm. Repeat EKG at the time post spontaneous conversion revealed sinus tachycardia at 105bpm. Initial potassium level found normal at 4.0 with a magnesium level of 2.0. TSH level was found to be 0.49. Current LDL is 145 with an A1C of 6.8. Cardiology services have now been involved for cardiac aspects of care. On tele floor, patient had episode of tachycarrhythmia and she was cardioverted for SVT Past medical history includes obesity, diabetes mellitus, asthma, GERD, hypertension, hyperlipidemia, pulmonary hypertension, old history of hysterectomy and left knee replacement. She does smoke cigarettes. She occasionally uses marijuana. She occasionally drinks alcohol Echocardiogram (08/2023) revealed Left ventricle: Left ventricle is normal size with normal systolic function. LVEF was 65 to 70%. There was no gross wall motion abnormality. Left atrium was normal size. Right-sided chambers were dilated. Aortic valve was trileaflet. There was no aortic insufficiency/stenosis. There was trivial mitral regurgitation. There was mild tricuspid regurgitation. Pulmonary valve was not well-visualized Right ventricular systolic pressure was assessed around 65 mmHg. IVC was dilated. There was no pericardial effusion. venous duplex was negative for lower ext dvt TSH: 0.48, T4 (free): 1.02 (wnl), T3 (free): 1.76 (mildly low) (findings are in favor of subclinical hyperthyroidism) Echo reported: Left ventricle: Left ventricle was normal sized with normal systolic function. LVEF was 65-70%. There was no gross wall motion abnormality. Right ventricle was normal size with normal systolic function. Both atria were normal size. Aortic valve: Aortic valve was trileaflet. There was no aortic insufficiency/stenosis. There was trivial tricuspid and mitral regurgitation. Pulmonic valve was not well visualized. Right ventricular systolic pressure was assessed around 40 mm Hg. There was no pericardial effusion. IVC was normal size with normal respiratory variation. Assessment: Acute hypoxic respiratory failure, secondary to right-sided pneumothorax Right-sided pneumothorax, status post chest tube placement Narrow-complex tachycardia, SVT s/p cardioversion for SVT Abnormal D-Dimer (0.59), likely refractory to pneumothorax Abnormal TSH level (0.49), rule out thyroid dysfunction: subclinical hyperthyroidism Pulmonary hypertension Nicotine dependence Diabetes mellitus II Asthma, history of COPD, history of Hyperlipidemia Hypertension Obesity s/p chest tube placement and its removal Plan: Manage on tele As patient initially presented and was noted to have an episode of narrow complex tachycardia, cardiology services were involved for its evaluation. Upon analysis of the EKG during the event, tracing reveals a narrow complex tachycardia at 191 bpm in favor of SVT spontaneously as she converted without intervention. Repeated SVT which required cardioversion. On Metoprolol for now (dose increased). Patient will need to undergo long-term event monitoring on an outpatient basis to further observe for such occult arrhythmias upon discharge. During the interim, recommendation is to proceed with close rate and rhythm surveillance, sustain potassium levels greater than 4.0, sustain magnesium levels greater than 2.0. Will proceed to follow from a cardiac perspective. Further recommendations as per clinical course and the above ordered findings. Metoprolol Tartrate 50mg twice daily for now , if needed you can further taper up Consider further event monitoring (can be arranged outpatient) Follow up renal function/electrolytes and correct abnormalities Management of underlying pneumothorax as per Pulmonology Counseled on importance of tobacco cessation Proceed with close rate and rhythm surveillance Proceed with close hemodynamic surveillance Proceed with optimized blood pressure control Transfuse to sustain HGB level above 7.0 Sustain Magnesium level greater than 2.0 Sustain Potassium level greater than 4.0 Follow up renal function and electrolytes Management in telemetry Follow up Pulmonology recommendations Will proceed to follow from a cardiac perspective Further recommendations per clinical progression All available diagnostic labs, EKG's, and images were personally reviewed Plan of care discussed with and agreed upon by patient / primary RN Prognosis: Guarded Thank you for allowing me to participate in the care of this patient. Further recommendations based on patients clinical course and progression, primary attending, and other consultants. Will continue to follow with primary attending. If you have any questions or concerns, please do not hesitate to contact me. A total of 55 minutes was spent reviewing the patient record, examining the patient, making a diagnostic and therapeutic plan, discussing this plan with medical personnel, following up on diagnostic studies and following the patient for clinical stability excluding any and all procedures. At least 50% of this time was spent in direct, [id number] contact. 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 3) Continue plan of care Expected Outcomes/Goals: 1) appetite and labs to improve 2) f/u in 3-5 days Plan discussed with: Patient, Other (nurse) RODNEY GRISSOM MD Mar 05, 2024 10:58
[2024-03-05] MEDS: LEVALBUTEROL HCL 1.25 MG/3 ML NEB ONE (20:30)
--- NOTE | 2024-03-05 20:50 | DVHPN2 ---
Progress Note Date Seen: Mar 05, 2024 Medical Necessity Reason Pt with a Central, PICC or Fol: Yes The following are medically ne: Marrufo Catheter Reason for marrufo catheter: Strict I&O Subjective Review of Systems: CVS:Normal, RESPIRATORY:Normal, NEURO:Normal Objective vital signs Vital Sign Date Time Temp Pulse Resp B/P (MAP) Pulse Ox O2 Delivery O2 Flow Rate FiO2 03/05/24 19:47 98 Nasal Cannula* 2 28 03/05/24 18:54 84 18 101/63 03/05/24 16:35 98.4 98.4 Total Intake and Output 03/04/24 03/04/24 03/05/24 15:00 23:00 07:00 Intake Total 960 ml 0 ml Output Total 800 ml 600 ml Balance 160 ml -600 ml medications Current Medications Medications Dose Ordered Sig/Kourtney Route Start Time Stop Time Status Last Admin Dose Admin Acetaminophen/ Hydrocodone Bitart 1 tab Q4HP PRN PO 02/26/24 17:15 03/05/24 10:08 1 TAB Ondansetron HCl 4 mg Q4HP PRN IV 02/26/24 17:15 02/26/24 21:55 4 MG Acetaminophen 650 mg Q6HP PRN PO 02/26/24 17:15 03/02/24 10:16 650 MG Morphine Sulfate 2 mg Q4HPRN PRN IV 02/26/24 17:15 03/05/24 18:24 2 MG Nitroglycerin 0.4 mg Q5MINP PRN SL 02/26/24 17:15 Morphine Sulfate 2 mg Q30M PRN IV 02/26/24 17:15 Ipratropium [place] 0.5 mg Q6HR NEB 02/27/24 12:45 03/05/24 17:57 0.5 MG Methylprednisolone Sodium Succinate 40 mg Q8HR IV 02/27/24 14:00 03/04/24 05:46 40 MG Atorvastatin Calcium 20 mg HS PO 02/28/24 22:00 03/04/24 21:51 20 MG Furosemide 20 mg DAILY PO 02/28/24 10:00 03/05/24 09:55 20 MG Gabapentin 300 mg TID PO 02/27/24 14:00 03/05/24 15:08 300 MG Pantoprazole Sodium 40 mg DAILY@0600 PO 02/28/24 06:00 03/05/24 05:35 40 MG Diagnostic Test (Pha) 1 strip ACHS 02/28/24 11:30 03/05/24 17:20 1 STRIP Insulin Human Regular HS SC 02/28/24 22:00 03/04/24 21:53 2 UNITS Insulin Human Regular AC SC 02/28/24 11:30 03/05/24 17:23 2 UNITS Dextrose 50 ml UD PRN IV 02/28/24 10:30 Enoxaparin Sodium 40 mg DAILY SC 02/29/24 10:00 03/05/24 09:52 40 MG Docusate Sodium 100 mg BID PO 02/28/24 22:00 03/05/24 09:56 100 MG Levalbuterol HCl 0.625 mg Q6HR NEB 02/29/24 06:00 03/05/24 17:57 0.625 MG Metoprolol Tartrate 50 mg BID PO 02/29/24 22:00 03/05/24 09:55 50 MG Doxycycline Monohydrate 100 mg Q12HR PO 02/29/24 22:00 Cancel Budesonide 0.5 mg BID NEB 02/29/24 22:00 03/05/24 17:57 0.5 MG Guaifenesin 200 mg Q6HP PRN PO 03/01/24 16:45 03/02/24 01:51 200 MG Nifedipine 30 mg DAILY PO 03/02/24 11:30 03/05/24 09:58 30 MG Alprazolam 1 mg Q8HPRN PRN PO 03/02/24 11:45 03/05/24 15:19 1 MG Zolpidem Tartrate 5 mg HSPRN PRN PO 03/02/24 11:45 03/04/24 21:51 5 MG Lidocaine 1 patch DAILY TOP 03/03/24 10:00 03/05/24 09:52 1 PATCH Azithromycin 500 mg DAILY PO 03/05/24 10:00 03/05/24 10:07 500 MG Examination: GENERAL:Normal, LUNGS:Abnormal (Diminished on the right), CVS:Normal, ABDOMEN:Normal, SKIN:Normal, NEURO:Normal laboratory and microbiology Laboratory Tests 02/28/24 23:05 Test 02/28/24 23:05 Range/Units Serum Glucose 209 H 74-106 mg/dL Labs and/or images reviewed: Labs reviewed by me, Image(s) reviewed by me Problem List/Assessment/Plan Problem List/Assessment/Plan 1. SOB r/t pneumothorax Monitor, pulmonary consult 2. S/p chest tube placement Monitor 3. GERD Monitor, PPI 4. HLD Monitor, restart home meds 5. COPD Monitor, pulmonary consult 6. SVT Monitor EKG, cardiology consult, beta blockers 7. Elevated D dimer Monitor 8. Pulmonary HTN Monitor, restart home meds Assessment/Plan Subjective Patient is awake alert. Objective Patient states she is doing much better today. Chest x-ray showed improvement of pneumothorax, chest tube was removed yesterday by automotive electrician.No episodes of breakthrough SVT. Patient remains on metoprolol tartrate 50 mg p.o. twice daily. EF is estimated 65 to 70%. Marrufo catheter was DC today. Chest x-ray today showed improvement of pneumonia on the right side. Plan Monitor EKG. Possible discharge plan after cleared by pulmonary, monitor chest x-ray Plan discussed with: Patient Dietary Evaluation Review Recommendations by RD: Dietary education by RD Comments: 1) Refer to outpatient RD/CDCES for weight management 2) F/u with automotive electrician 2) Continue to monitor PO intake and nutrition-related labs. 3) Continue plan of care Expected Outcomes/Goals: 1) appetite and labs to improve 2) f/u in 3-5 days Date of Service: Mar 05, 2024 Billing Provider: YUNG RAPHAEL MD Common Visit Codes: 37002-[id number] INP/OBS CARE (MOD) MANNY PADILLA GUT CARRIER Mar 05, 2024 20:49
--- NOTE | 2024-03-05 23:32 | DVHPN2 ---
Progress Note - Dictate Date Seen: Mar 05, 2024 Medical Necessity Reason Pt with a Central, PICC or Fol: Yes The following are medically ne: Marrufo Catheter Reason for marrufo catheter: Strict I&O Subjective Patient seen and examined at bedside. On room air. Overnight events reviewed. vital signs Vital Sign Date Time Temp Pulse Resp B/P (MAP) Pulse Ox O2 Delivery O2 Flow Rate FiO2 03/05/24 21:54 97 175/65 03/05/24 21:00 97.3 19 94 97.3 03/05/24 19:47 Nasal Cannula* 2 28 Total Intake and Output 03/04/24 03/04/24 03/05/24 15:00 23:00 07:00 Intake Total 960 ml 0 ml Output Total 800 ml 600 ml Balance 160 ml -600 ml medications Current Medications Medications Dose Ordered Sig/Kourtney Route Start Time Stop Time Status Last Admin Dose Admin Acetaminophen/ Hydrocodone Bitart 1 tab Q4HP PRN PO 02/26/24 17:15 03/05/24 10:08 1 TAB Ondansetron HCl 4 mg Q4HP PRN IV 02/26/24 17:15 02/26/24 21:55 4 MG Acetaminophen 650 mg Q6HP PRN PO 02/26/24 17:15 03/02/24 10:16 650 MG Morphine Sulfate 2 mg Q4HPRN PRN IV 02/26/24 17:15 03/05/24 18:24 2 MG Nitroglycerin 0.4 mg Q5MINP PRN SL 02/26/24 17:15 Morphine Sulfate 2 mg Q30M PRN IV 02/26/24 17:15 Ipratropium [place] 0.5 mg Q6HR NEB 02/27/24 12:45 03/05/24 17:57 0.5 MG Methylprednisolone Sodium Succinate 40 mg Q8HR IV 02/27/24 14:00 03/05/24 21:53 40 MG Atorvastatin Calcium 20 mg HS PO 02/28/24 22:00 03/05/24 21:54 20 MG Furosemide 20 mg DAILY PO 02/28/24 10:00 03/05/24 09:55 20 MG Gabapentin 300 mg TID PO 02/27/24 14:00 03/05/24 21:54 300 MG Pantoprazole Sodium 40 mg DAILY@0600 PO 02/28/24 06:00 03/05/24 05:35 40 MG Diagnostic Test (Pha) 1 strip ACHS 02/28/24 11:30 03/05/24 21:54 1 STRIP Insulin Human Regular HS SC 02/28/24 22:00 03/05/24 22:04 4 UNITS Insulin Human Regular AC SC 02/28/24 11:30 03/05/24 17:23 2 UNITS Dextrose 50 ml UD PRN IV 02/28/24 10:30 Enoxaparin Sodium 40 mg DAILY SC 02/29/24 10:00 03/05/24 09:52 40 MG Docusate Sodium 100 mg BID PO 02/28/24 22:00 03/05/24 21:53 100 MG Levalbuterol HCl 0.625 mg Q6HR NEB 02/29/24 06:00 03/05/24 17:57 0.625 MG Metoprolol Tartrate 50 mg BID PO 02/29/24 22:00 03/05/24 21:54 50 MG Doxycycline Monohydrate 100 mg Q12HR PO 02/29/24 22:00 Cancel Budesonide 0.5 mg BID NEB 02/29/24 22:00 03/05/24 17:57 0.5 MG Guaifenesin 200 mg Q6HP PRN PO 03/01/24 16:45 03/02/24 01:51 200 MG Nifedipine 30 mg DAILY PO 03/02/24 11:30 03/05/24 09:58 30 MG Alprazolam 1 mg Q8HPRN PRN PO 03/02/24 11:45 03/05/24 15:19 1 MG Zolpidem Tartrate 5 mg HSPRN PRN PO 03/02/24 11:45 03/04/24 21:51 5 MG Lidocaine 1 patch DAILY TOP 03/03/24 10:00 03/05/24 09:52 1 PATCH Azithromycin 500 mg DAILY PO 03/05/24 10:00 03/05/24 10:07 500 MG objective Gen.: Patient lying in bed in no apparent distress. On room air. Head: Normocephalic, atraumatic. Eyes: EOMI/PERRLA. Ears: Normal hearing. Normal anatomy. Neck/trachea: Trachea midline, supple. Nose: Normal external anatomy. Mouth: Moist mucous membranes. Chest: Decreased air entry bilaterally. Wheezing. No rhonchi. Cardiovascular: Positive S1, positive S2. Regular rate and rhythm. Abdomen: Positive bowel sounds in all 4 quadrants. Soft, non-tender, non- distended. : Deferred. Rectal: Deferred. Skin: Warm, dry. Intact. Extremities: 2+ radial pulses bilaterally. No lower extremity edema. Neuro: Awake, alert, oriented x3. No gross motor or sensory deficits. Cranial nerves II through XII intact. Gait not assessed. laboratory and microbiology Laboratory Tests 02/28/24 23:05 Test 02/28/24 23:05 Range/Units Serum Glucose 209 H 74-106 mg/dL Assessment/Plan Impression: Acute hypoxic respiratory failure Right pneumothorax status post chest tube placement COPD Asthma Obesity with a BMI of 33.6 Atelectasis DM type II with hyperglycemia Elevated d-dimer Events: Breathing on room air No respiratory distress. Supplemental o2 PRN Patient is status post right chest tube removal. Chest x-ray post procedure demonstrates no pneumothorax. Incentive spirometry Continue bronchodilators Continue antibiotics Patient is stable from the pulmonary standpoint for discharge. Labs and imaging reviewed. Rest of plan as noted below. Plan: Supplemental o2 PRN Keep o2 sat above 92% S/p removal of right chest tube IS for atelectasis Pain control Avoid oversedation Accu-Cheks, ISS Elevated D-dimer, likely reactive due to pneumothorax. DVT prophylaxis- Lovenox Prognosis: Poor given multiple comorbidities. Rest of plan per hospitalist and other consultants. Thank you Dr. Montesinos/LIA Carrington for allowing me to participate in this patient's care. Further recommendations will depend on patient's clinical course. Please do not hesitate to contact me if you have any questions or concerns. This medical document was created using an electronic medical record system with [employer] dictation system. Although this document has been carefully reviewed, there may still be some phonetic and typographical errors. These areas are purely typographical due to imperfections of the software programs, and do not reflect any compromise in the patient's medical care. Dietary Evaluation Review Recommendations by RD: Dietary education by RD Comments: 1) Refer to outpatient RD/CDCES for weight management 2) F/u with auto transport driver 2) Continue to monitor PO intake and nutrition-related labs. 3) Continue plan of care Expected Outcomes/Goals: 1) appetite and labs to improve 2) f/u in 3-5 days Plan discussed with: Patient, Other (STEVE Ba, INTERNATIONAL OPERATIONS MANAGER) WADE PATEL MD Mar 05, 2024 23:32
[2024-03-06] VITALS (13 sets, daily range): BP systolic 100–157; BP diastolic 42–82; PULSE 53–115; RESP 16–19; TEMP 97.6–98.5; O2SAT 95–100
--- NOTE | 2024-03-06 10:13 | DVHPN2 ---
Progress Note - Dictate Date Seen: Mar 06, 2024 Medical Necessity Reason Pt with a Central, PICC or Fol: Yes The following are medically ne: Marrufo Catheter Reason for marrufo catheter: Strict I&O vital signs Vital Sign Date Time Temp Pulse Resp B/P (MAP) Pulse Ox O2 Delivery O2 Flow Rate FiO2 03/06/24 08:32 101/61 03/06/24 08:31 68 03/06/24 07:26 18 03/06/24 06:20 100 03/06/24 06:10 Nasal Cannula 2.0 03/06/24 06:10 28 03/06/24 05:00 98.0 98.0 Total Intake and Output 03/05/24 03/05/24 03/06/24 15:00 23:00 07:00 Intake Total 400 ml 240 ml Output Total 550 ml 550 ml 2 ml Balance -550 ml -150 ml 238 ml medications Current Medications Medications Dose Ordered Sig/Kourtney Route Start Time Stop Time Status Last Admin Dose Admin Acetaminophen/ Hydrocodone Bitart 1 tab Q4HP PRN PO 02/26/24 17:15 03/05/24 10:08 1 TAB Ondansetron HCl 4 mg Q4HP PRN IV 02/26/24 17:15 02/26/24 21:55 4 MG Acetaminophen 650 mg Q6HP PRN PO 02/26/24 17:15 03/02/24 10:16 650 MG Morphine Sulfate 2 mg Q4HPRN PRN IV 02/26/24 17:15 03/06/24 06:44 2 MG Nitroglycerin 0.4 mg Q5MINP PRN SL 02/26/24 17:15 Morphine Sulfate 2 mg Q30M PRN IV 02/26/24 17:15 Ipratropium [place] 0.5 mg Q6HR NEB 02/27/24 12:45 03/06/24 06:10 0.5 MG Methylprednisolone Sodium Succinate 40 mg Q8HR IV 02/27/24 14:00 03/06/24 06:05 40 MG Atorvastatin Calcium 20 mg HS PO 02/28/24 22:00 03/05/24 21:54 20 MG Furosemide 20 mg DAILY PO 02/28/24 10:00 03/06/24 08:32 20 MG Gabapentin 300 mg TID PO 02/27/24 14:00 03/06/24 06:05 300 MG Pantoprazole Sodium 40 mg DAILY@0600 PO 02/28/24 06:00 03/06/24 06:05 40 MG Diagnostic Test (Pha) 1 strip ACHS 02/28/24 11:30 03/06/24 06:05 1 STRIP Insulin Human Regular HS SC 02/28/24 22:00 03/05/24 22:04 4 UNITS Insulin Human Regular AC SC 02/28/24 11:30 03/06/24 06:40 3 UNITS Dextrose 50 ml UD PRN IV 02/28/24 10:30 Enoxaparin Sodium 40 mg DAILY SC 02/29/24 10:00 03/06/24 08:29 40 MG Docusate Sodium 100 mg BID PO 02/28/24 22:00 03/06/24 08:12 100 MG Levalbuterol HCl 0.625 mg Q6HR NEB 02/29/24 06:00 03/06/24 06:10 0.625 MG Metoprolol Tartrate 50 mg BID PO 02/29/24 22:00 03/06/24 08:31 50 MG Doxycycline Monohydrate 100 mg Q12HR PO 02/29/24 22:00 Cancel Budesonide 0.5 mg BID NEB 02/29/24 22:00 03/06/24 06:10 0.5 MG Guaifenesin 200 mg Q6HP PRN PO 03/01/24 16:45 03/02/24 01:51 200 MG Nifedipine 30 mg DAILY PO 03/02/24 11:30 03/06/24 08:30 30 MG Alprazolam 1 mg Q8HPRN PRN PO 03/02/24 11:45 03/06/24 08:40 1 MG Zolpidem Tartrate 5 mg HSPRN PRN PO 03/02/24 11:45 03/06/24 00:01 5 MG Lidocaine 1 patch DAILY TOP 03/03/24 10:00 03/06/24 08:40 1 PATCH Azithromycin 500 mg DAILY PO 03/05/24 10:00 03/06/24 08:31 500 MG laboratory and microbiology Laboratory Tests 02/28/24 23:05 Test 02/28/24 23:05 Range/Units Serum Glucose 209 H 74-106 mg/dL Assessment/Plan This is a 69-year old female who initially presented (02/26/2024) with shortness of breath and cough with associated orthopnea for approximately 2 days prior to initial arrival. Upon ED arrival, initial twelve lead electrocardiogram was performed revealing sinus tachycardia at 104 bpm with no acute ischemic changes. Initial HS troponin level was found normal at <3 with subsequent level of <3. BNP level was found normal at 12.74. Covid-19, Influenza A/B were found negative. WBC found normal at 5.6. Initial chest x-ray revealed presence of a moderate sized pneumothorax involving the right lung which patient underwent right sided chest tube placement. Subsequent chest x-ray post chest tube placement revealed interval improvement of right pneumothorax. Repeat chest imaging (02/27/2024) revealed presence of a small right apical pneumothorax with chest tube in situ which Pulmonology services have been involved for management. While within the ED, patient was noted to have an episode of tachycardia which upon EKG analysis, there is presence of a narrow-complex tachycardia at 191 bpm with questionable presence of 2:1 atrial flutter which as per ED provider note, patient spontaneously converted back to sinus rhythm. Repeat EKG at the time post spontaneous conversion revealed sinus tachycardia at 105bpm. Initial potassium level found normal at 4.0 with a magnesium level of 2.0. TSH level was found to be 0.49. Current LDL is 145 with an A1C of 6.8. Cardiology services have now been involved for cardiac aspects of care. On tele floor, patient had episode of tachycarrhythmia and she was cardioverted for SVT Past medical history includes obesity, diabetes mellitus, asthma, GERD, hypertension, hyperlipidemia, pulmonary hypertension, old history of hysterectomy and left knee replacement. She does smoke cigarettes. She occasionally uses marijuana. She occasionally drinks alcohol Echocardiogram (08/2023) revealed Left ventricle: Left ventricle is normal size with normal systolic function. LVEF was 65 to 70%. There was no gross wall motion abnormality. Left atrium was normal size. Right-sided chambers were dilated. Aortic valve was trileaflet. There was no aortic insufficiency/stenosis. There was trivial mitral regurgitation. There was mild tricuspid regurgitation. Pulmonary valve was not well-visualized Right ventricular systolic pressure was assessed around 65 mmHg. IVC was dilated. There was no pericardial effusion. venous duplex was negative for lower ext dvt TSH: 0.48, T4 (free): 1.02 (wnl), T3 (free): 1.76 (mildly low) (findings are in favor of subclinical hyperthyroidism) Echo reported: Left ventricle: Left ventricle was normal sized with normal systolic function. LVEF was 65-70%. There was no gross wall motion abnormality. Right ventricle was normal size with normal systolic function. Both atria were normal size. Aortic valve: Aortic valve was trileaflet. There was no aortic insufficiency/stenosis. There was trivial tricuspid and mitral regurgitation. Pulmonic valve was not well visualized. Right ventricular systolic pressure was assessed around 40 mm Hg. There was no pericardial effusion. IVC was normal size with normal respiratory variation. Assessment: Acute hypoxic respiratory failure, secondary to right-sided pneumothorax Right-sided pneumothorax, status post chest tube placement Narrow-complex tachycardia, SVT s/p cardioversion for SVT Abnormal D-Dimer (0.59), likely refractory to pneumothorax Abnormal TSH level (0.49), rule out thyroid dysfunction: subclinical hyperthyroidism Pulmonary hypertension Nicotine dependence Diabetes mellitus II Asthma, history of COPD, history of Hyperlipidemia Hypertension Obesity s/p chest tube placement and its removal Plan: Manage on tele As patient initially presented and was noted to have an episode of narrow complex tachycardia, cardiology services were involved for its evaluation. Upon analysis of the EKG during the event, tracing reveals a narrow complex tachycardia at 191 bpm in favor of SVT spontaneously as she converted without intervention. Repeated SVT which required cardioversion. On Metoprolol for now (dose increased). Patient will need to undergo long-term event monitoring on an outpatient basis to further observe for such occult arrhythmias upon discharge. During the interim, recommendation is to proceed with close rate and rhythm surveillance, sustain potassium levels greater than 4.0, sustain magnesium levels greater than 2.0. Will proceed to follow from a cardiac perspective. Further recommendations as per clinical course and the above ordered findings. Metoprolol Tartrate 50mg twice daily for now , if needed you can further taper up Consider further event monitoring (can be arranged outpatient) Follow up renal function/electrolytes and correct abnormalities Management of underlying pneumothorax as per Pulmonology Counseled on importance of tobacco cessation Proceed with close rate and rhythm surveillance Proceed with close hemodynamic surveillance Proceed with optimized blood pressure control Transfuse to sustain HGB level above 7.0 Sustain Magnesium level greater than 2.0 Sustain Potassium level greater than 4.0 Follow up renal function and electrolytes Management in telemetry Follow up Pulmonology recommendations Will proceed to follow from a cardiac perspective Further recommendations per clinical progression All available diagnostic labs, EKG's, and images were personally reviewed Plan of care discussed with and agreed upon by patient / primary RN Prognosis: Guarded Thank you for allowing me to participate in the care of this patient. Further recommendations based on patients clinical course and progression, primary attending, and other consultants. Will continue to follow with primary attending. If you have any questions or concerns, please do not hesitate to contact me. A total of 55 minutes was spent reviewing the patient record, examining the patient, making a diagnostic and therapeutic plan, discussing this plan with medical personnel, following up on diagnostic studies and following the patient for clinical stability excluding any and all procedures. At least 50% of this time was spent in direct, [id number] contact. Dietary Evaluation Review Recommendations by RD: Dietary education by RD Comments: 1) Refer to outpatient RD/CDCES for weight management 2) F/u with seo executive 2) Continue to monitor PO intake and nutrition-related labs. 3) Continue plan of care Expected Outcomes/Goals: 1) appetite and labs to improve 2) f/u in 3-5 days Plan discussed with: Patient, Other (nurse) RODNEY GRISSOM MD Mar 06, 2024 10:13
--- NOTE | 2024-03-06 11:07 | DVH ---
XY CHEST TWO VIEWS ROUTINE CLINICAL HISTORY: PNEUMO COMPARISON: XY CHEST XRAY 1 VIEW on DOS: 03/05/24 TECHNIQUE: Single frontal view of the chest was obtained FINDINGS: Patchy opacity in the right lung has improved. No sizable effusion or discrete pneumothorax. Mild pe rsistent subcutaneous emphysema along the right chest wall. IMPRESSION: Patchy opacity in the right lung has improved. No sizable effusion or discrete pneumothorax. Mild pe rsistent subcutaneous emphysema along the right chest wall.
[2024-03-06 12:35] LABS: Basophils # (auto) 0.1 10 ^3/uL (0-0.2); Basophils % (auto) 1.2 % (0.0-2.0); Eosinophils # (auto) 0 10 ^3/uL (0-0.8); Eosinophils % (auto) 0.1 % (0.0-7.0); Hematocrit 33.5 % (36.0-46.0); Hemoglobin 11.1 g/dL (12.2-16.2); Lymphocytes # (auto) 0.7 10 ^3/uL (0.4-5.4); Lymphocytes % (auto) 6.2 % (10.0-50.0); Mean Corpuscular Hgb Conc. 33.2 g/dL (32.0-36.0); Mean Corpuscular Volume 90.3 fL (80.0-100.0); Monocytes # (auto) 0.5 10 ^3/uL (0-1.3); Monocytes % (auto) 3.8 % (0.0-12.0); Neutrophils # (auto) 10.7 10 ^3/uL (1.6-8.6); Neutrophils % (auto) 88.7 % (37.0-80.0); Nucleated Red Blood Cells % 0.1 %; Platelet Count (auto) 328 10^3/uL (140-450); Red Blood Cells 3.71 10^6/uL (4.0-5.20); Red Cell Distribution Width 15.1 % (11.8-14.3); White Blood Cell 12.1 10^3/uL (4.4-10.8)
[2024-03-06 12:37] LABS: Anion Gap 4 (5-15); Chloride 101 mmol/L (98-107); Sodium 138 mmol/L (136-145)
[2024-03-06 12:38] LABS: Calcium 9.7 mg/dL (8.7-10.4)
[2024-03-06 12:40] LABS: Carbon Dioxide 33 mmol/L (20-31)
[2024-03-06 12:43] LABS: BUN/Creatinine Ratio 29.2 (10.0-20.0); Blood Urea Nitrogen 19 mg/dL (9-23)
[2024-03-06 12:48] LABS: Glucose 167 mg/dL (74-106)
--- NOTE | 2024-03-06 14:04 | DVHPN2 ---
Progress Note Date Seen: Mar 06, 2024 Medical Necessity Reason Pt with a Central, PICC or Fol: Yes The following are medically ne: Marrufo Catheter Reason for marrufo catheter: Strict I&O Subjective Review of Systems: CVS:Normal, RESPIRATORY:Normal, GI:Normal, NEURO:Normal Objective vital signs Vital Sign Date Time Temp Pulse Resp B/P (MAP) Pulse Ox O2 Delivery O2 Flow Rate FiO2 03/06/24 11:30 58 16 100 03/06/24 11:24 Nasal Cannula 2.0 03/06/24 11:24 28 03/06/24 08:32 101/61 03/06/24 05:00 98.0 98.0 Total Intake and Output 03/05/24 03/05/24 03/06/24 15:00 23:00 07:00 Intake Total 400 ml 240 ml Output Total 550 ml 550 ml 2 ml Balance -550 ml -150 ml 238 ml medications Current Medications Medications Dose Ordered Sig/Kourtney Route Start Time Stop Time Status Last Admin Dose Admin Acetaminophen/ Hydrocodone Bitart 1 tab Q4HP PRN PO 02/26/24 17:15 03/05/24 10:08 1 TAB Ondansetron HCl 4 mg Q4HP PRN IV 02/26/24 17:15 02/26/24 21:55 4 MG Acetaminophen 650 mg Q6HP PRN PO 02/26/24 17:15 03/02/24 10:16 650 MG Morphine Sulfate 2 mg Q4HPRN PRN IV 02/26/24 17:15 03/06/24 06:44 2 MG Nitroglycerin 0.4 mg Q5MINP PRN SL 02/26/24 17:15 Morphine Sulfate 2 mg Q30M PRN IV 02/26/24 17:15 Ipratropium [place] 0.5 mg Q6HR NEB 02/27/24 12:45 03/06/24 11:24 0.5 MG Methylprednisolone Sodium Succinate 40 mg Q8HR IV 02/27/24 14:00 03/06/24 06:05 40 MG Atorvastatin Calcium 20 mg HS PO 02/28/24 22:00 03/05/24 21:54 20 MG Furosemide 20 mg DAILY PO 02/28/24 10:00 03/06/24 08:32 20 MG Gabapentin 300 mg TID PO 02/27/24 14:00 03/06/24 06:05 300 MG Pantoprazole Sodium 40 mg DAILY@0600 PO 02/28/24 06:00 03/06/24 06:05 40 MG Diagnostic Test (Pha) 1 strip ACHS 02/28/24 11:30 03/06/24 06:05 1 STRIP Insulin Human Regular HS SC 02/28/24 22:00 03/05/24 22:04 4 UNITS Insulin Human Regular AC SC 02/28/24 11:30 03/06/24 06:40 3 UNITS Dextrose 50 ml UD PRN IV 02/28/24 10:30 Enoxaparin Sodium 40 mg DAILY SC 02/29/24 10:00 03/06/24 08:29 40 MG Docusate Sodium 100 mg BID PO 02/28/24 22:00 03/06/24 08:12 100 MG Levalbuterol HCl 0.625 mg Q6HR NEB 02/29/24 06:00 03/06/24 11:24 0.625 MG Metoprolol Tartrate 50 mg BID PO 02/29/24 22:00 03/06/24 08:31 50 MG Doxycycline Monohydrate 100 mg Q12HR PO 02/29/24 22:00 Cancel Budesonide 0.5 mg BID NEB 02/29/24 22:00 03/06/24 06:10 0.5 MG Guaifenesin 200 mg Q6HP PRN PO 03/01/24 16:45 03/02/24 01:51 200 MG Nifedipine 30 mg DAILY PO 03/02/24 11:30 03/06/24 08:30 30 MG Alprazolam 1 mg Q8HPRN PRN PO 03/02/24 11:45 03/06/24 08:40 1 MG Zolpidem Tartrate 5 mg HSPRN PRN PO 03/02/24 11:45 03/06/24 00:01 5 MG Lidocaine 1 patch DAILY TOP 03/03/24 10:00 03/06/24 08:40 1 PATCH Azithromycin 500 mg DAILY PO 03/05/24 10:00 03/06/24 08:31 500 MG Examination: LUNGS:Normal, CVS:Normal, ABDOMEN:Normal, SKIN:Normal, NEURO:Normal laboratory and microbiology Laboratory Tests 03/06/24 12:01 Test 03/06/24 12:01 Range/Units Serum Glucose 167 H 74-106 mg/dL Labs and/or images reviewed: Labs reviewed by me, Image(s) reviewed by me Problem List/Assessment/Plan Problem List/Assessment/Plan 1. SOB r/t pneumothorax Monitor, pulmonary consult 2. S/p chest tube placement Monitor 3. GERD Monitor, PPI 4. HLD Monitor, restart home meds 5. COPD Monitor, pulmonary consult 6. SVT Monitor EKG, cardiology consult, beta blockers 7. Elevated D dimer Monitor 8. Pulmonary HTN Monitor, restart home meds Assessment/Plan Subjective Patient is awake alert. Objective Patient states she is doing much better today. Chest x-ray showed improvement of pneumothorax, chest tube was removed on 03/04/24 by hospital aides and assistants teacher. No episodes of breakthrough SVT. Patient remains on metoprolol tartrate 50 mg p.o. twice daily. EF is estimated 65 to 70%. Chest x-ray today showed improvement of pneumonia on the right side. Plan Monitor EKG. Possible discharge plan after cleared by pulmonary, monitor chest x-ray Plan discussed with: Patient My Orders My Orders Orders - MANNY PADILLA Procedure Category Date Status Time Chest Two Views XY 03/06/24 Resulted Routine 10:06 Dietary Evaluation Review Recommendations by RD: Dietary education by RD Comments: 1) Refer to outpatient RD/CDCES for weight management 2) F/u with hospital aides and assistants teacher 2) Continue to monitor PO intake and nutrition-related labs. 3) Continue plan of care Expected Outcomes/Goals: 1) appetite and labs to improve 2) f/u in 3-5 days Date of Service: Mar 06, 2024 Billing Provider: YUNG RAPHAEL MD Common Visit Codes: 69953-[id number] INP/OBS CARE (MOD) MANNY PADILLA Mar 06, 2024 14:04
--- NOTE | 2024-03-06 23:20 | DVHPN2 ---
Progress Note - Dictate Date Seen: Mar 06, 2024 Medical Necessity Reason Pt with a Central, PICC or Fol: Yes The following are medically ne: Marrufo Catheter Reason for marrufo catheter: Strict I&O Subjective Patient seen and examined at bedside. On supplemental oxygen Overnight events reviewed. vital signs Vital Sign Date Time Temp Pulse Resp B/P (MAP) Pulse Ox O2 Delivery O2 Flow Rate FiO2 03/06/24 21:17 78 118/65 03/06/24 21:00 97.7 19 95 97.7 03/06/24 11:24 Nasal Cannula 2.0 03/06/24 11:24 28 Total Intake and Output 03/05/24 03/05/24 03/06/24 15:00 23:00 07:00 Intake Total 400 ml 240 ml Output Total 550 ml 550 ml 2 ml Balance -550 ml -150 ml 238 ml medications Current Medications Medications Dose Ordered Sig/Kourtney Route Start Time Stop Time Status Last Admin Dose Admin Ondansetron HCl 4 mg Q4HP PRN IV 02/26/24 17:15 02/26/24 21:55 4 MG Acetaminophen 650 mg Q6HP PRN PO 02/26/24 17:15 03/02/24 10:16 650 MG Nitroglycerin 0.4 mg Q5MINP PRN SL 02/26/24 17:15 Ipratropium [place] 0.5 mg Q6HR NEB 02/27/24 12:45 03/06/24 11:24 0.5 MG Methylprednisolone Sodium Succinate 40 mg Q8HR IV 02/27/24 14:00 03/06/24 21:17 40 MG Atorvastatin Calcium 20 mg HS PO 02/28/24 22:00 03/06/24 21:16 20 MG Furosemide 20 mg DAILY PO 02/28/24 10:00 03/06/24 08:32 20 MG Gabapentin 300 mg TID PO 02/27/24 14:00 03/06/24 21:16 300 MG Pantoprazole Sodium 40 mg DAILY@0600 PO 02/28/24 06:00 03/06/24 06:05 40 MG Diagnostic Test (Pha) 1 strip ACHS 02/28/24 11:30 03/06/24 21:27 1 STRIP Insulin Human Regular HS SC 02/28/24 22:00 03/05/24 22:04 4 UNITS Insulin Human Regular AC SC 02/28/24 11:30 1/5/25 14:26 3 UNITS Dextrose 50 ml UD PRN IV 02/28/24 10:30 Enoxaparin Sodium 40 mg DAILY SC 02/29/24 10:00 03/06/24 08:29 40 MG Docusate Sodium 100 mg BID PO 02/28/24 22:00 03/06/24 08:12 100 MG Levalbuterol HCl 0.625 mg Q6HR NEB 02/29/24 06:00 03/06/24 11:24 0.625 MG Metoprolol Tartrate 50 mg BID PO 02/29/24 22:00 03/06/24 21:17 50 MG Doxycycline Monohydrate 100 mg Q12HR PO 02/29/24 22:00 Cancel Budesonide 0.5 mg BID NEB 02/29/24 22:00 03/06/24 06:10 0.5 MG Guaifenesin 200 mg Q6HP PRN PO 03/01/24 16:45 03/02/24 01:51 200 MG Nifedipine 30 mg DAILY PO 03/02/24 11:30 03/06/24 08:30 30 MG Alprazolam 1 mg Q8HPRN PRN PO 03/02/24 11:45 03/06/24 21:16 1 MG Zolpidem Tartrate 5 mg HSPRN PRN PO 03/02/24 11:45 03/06/24 21:18 5 MG Lidocaine 1 patch DAILY TOP 03/03/24 10:00 03/06/24 08:40 1 PATCH Azithromycin 500 mg DAILY PO 03/05/24 10:00 03/06/24 08:31 500 MG Morphine Sulfate 2 mg Q4HPRN PRN IV 03/06/24 22:30 objective Gen.: Patient lying in bed in no apparent distress. On supplemental oxygen Head: Normocephalic, atraumatic. Eyes: EOMI/PERRLA. Ears: Normal hearing. Normal anatomy. Neck/trachea: Trachea midline, supple. Nose: Normal external anatomy. Mouth: Moist mucous membranes. Chest: Decreased air entry bilaterally. Wheezing. No rhonchi. Cardiovascular: Positive S1, positive S2. Regular rate and rhythm. Abdomen: Positive bowel sounds in all 4 quadrants. Soft, non-tender, non- distended. : Deferred. Rectal: Deferred. Skin: Warm, dry. Intact. Extremities: 2+ radial pulses bilaterally. No lower extremity edema. Neuro: Awake, alert, oriented x3. No gross motor or sensory deficits. Cranial nerves II through XII intact. Gait not assessed. laboratory and microbiology Laboratory Tests 03/06/24 12:01 Test 03/06/24 12:01 Range/Units Serum Glucose 167 H 74-106 mg/dL Assessment/Plan Impression: Acute hypoxic respiratory failure Right pneumothorax status post chest tube placement COPD Asthma Obesity with a BMI of 33.6 Atelectasis DM type II with hyperglycemia Elevated d-dimer Events: On supplemental oxygen 2 LPM NC Taper O2 as tolerated Incentive spirometry Continue bronchodilators PRN Antitussive PRN Pain control Avoid oversedation Patient is stable from the pulmonary standpoint for discharge. Labs and imaging reviewed. Rest of plan as noted below. Plan: Supplemental oxygen Keep o2 sat above 92% S/p removal of right chest tube Chest x-ray post procedure demonstrated no pneumothorax. IS for atelectasis Pain control Avoid oversedation Accu-Cheks, ISS Elevated D-dimer, likely reactive due to pneumothorax. DVT prophylaxis- Lovenox Prognosis: Poor given multiple comorbidities. Rest of plan per hospitalist and other consultants. Thank you Dr. Montesinos/LIA Carrington for allowing me to participate in this patient's care. Further recommendations will depend on patient's clinical course. Please do not hesitate to contact me if you have any questions or concerns. This medical document was created using an electronic medical record system with [employer] dictation system. Although this document has been carefully reviewed, there may still be some phonetic and typographical errors. These areas are purely typographical due to imperfections of the software programs, and do not reflect any compromise in the patient's medical care. 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 3) Continue plan of care Expected Outcomes/Goals: 1) appetite and labs to improve 2) f/u in 3-5 days Plan discussed with: Patient, Other (STEVE Mckinney) WADE PATEL MD Mar 06, 2024 23:20
[2024-03-06] MEDS: MORPHINE SULFATE INJ 2 MG/ml SYRG IV PRN (23:32)
[2024-03-07] VITALS (15 sets, daily range): BP systolic 98–138; BP diastolic 53–82; PULSE 57–89; RESP 15–20; TEMP 97.5–98.2; O2SAT 91–100
--- NOTE | 2024-03-07 07:39 | DVHPN2 ---
Progress Note - Dictate Date Seen: Mar 07, 2024 Medical Necessity Reason Pt with a Central, PICC or Fol: Yes The following are medically ne: Marrufo Catheter Reason for marrufo catheter: Strict I&O vital signs Vital Sign Date Time Temp Pulse Resp B/P (MAP) Pulse Ox O2 Delivery O2 Flow Rate FiO2 03/07/24 05:32 66 18 109/56 03/07/24 05:00 98.2 97 98.2 03/07/24 01:24 2.0 28 03/06/24 20:00 Nasal Cannula* Total Intake and Output 03/06/24 03/06/24 03/07/24 15:00 23:00 07:00 Intake Total 560 ml 750 ml Output Total 3 ml 400 ml Balance 557 ml 350 ml medications Current Medications Medications Dose Ordered Sig/Kourtney Route Start Time Stop Time Status Last Admin Dose Admin Ondansetron HCl 4 mg Q4HP PRN IV 02/26/24 17:15 02/26/24 21:55 4 MG Acetaminophen 650 mg Q6HP PRN PO 02/26/24 17:15 03/02/24 10:16 650 MG Nitroglycerin 0.4 mg Q5MINP PRN SL 02/26/24 17:15 Ipratropium [place] 0.5 mg Q6HR NEB 02/27/24 12:45 03/06/24 11:24 0.5 MG Methylprednisolone Sodium Succinate 40 mg Q8HR IV 02/27/24 14:00 03/07/24 05:36 40 MG Atorvastatin Calcium 20 mg HS PO 02/28/24 22:00 03/06/24 21:16 20 MG Furosemide 20 mg DAILY PO 02/28/24 10:00 03/06/24 08:32 20 MG Gabapentin 300 mg TID PO 02/27/24 14:00 03/07/24 05:36 300 MG Pantoprazole Sodium 40 mg DAILY@0600 PO 02/28/24 06:00 03/07/24 05:36 40 MG Diagnostic Test (Pha) 1 strip ACHS 02/28/24 11:30 03/07/24 06:34 1 STRIP Insulin Human Regular HS SC 02/28/24 22:00 03/05/24 22:04 4 UNITS Insulin Human Regular AC SC 02/28/24 11:30 03/07/24 06:33 3 UNITS Dextrose 50 ml UD PRN IV 02/28/24 10:30 Enoxaparin Sodium 40 mg DAILY SC 02/29/24 10:00 03/06/24 08:29 40 MG Docusate Sodium 100 mg BID PO 02/28/24 22:00 03/06/24 08:12 100 MG Levalbuterol HCl 0.625 mg Q6HR NEB 02/29/24 06:00 03/06/24 11:24 0.625 MG Metoprolol Tartrate 50 mg BID PO 02/29/24 22:00 03/06/24 21:17 50 MG Doxycycline Monohydrate 100 mg Q12HR PO 02/29/24 22:00 Cancel Budesonide 0.5 mg BID NEB 02/29/24 22:00 03/06/24 06:10 0.5 MG Guaifenesin 200 mg Q6HP PRN PO 03/01/24 16:45 03/02/24 01:51 200 MG Nifedipine 30 mg DAILY PO 03/02/24 11:30 03/06/24 08:30 30 MG Alprazolam 1 mg Q8HPRN PRN PO 03/02/24 11:45 03/06/24 21:16 1 MG Zolpidem Tartrate 5 mg HSPRN PRN PO 03/02/24 11:45 03/06/24 21:18 5 MG Lidocaine 1 patch DAILY TOP 03/03/24 10:00 03/06/24 08:40 1 PATCH Azithromycin 500 mg DAILY PO 03/05/24 10:00 03/06/24 08:31 500 MG Morphine Sulfate 2 mg Q4HPRN PRN IV 03/06/24 22:30 03/07/24 05:02 2 MG laboratory and microbiology Laboratory Tests 03/06/24 12:01 Test 03/06/24 12:01 Range/Units Serum Glucose 167 H 74-106 mg/dL Assessment/Plan This is a 69-year old female who initially presented (02/26/2024) with shortness of breath and cough with associated orthopnea for approximately 2 days prior to initial arrival. Upon ED arrival, initial twelve lead electrocardiogram was performed revealing sinus tachycardia at 104 bpm with no acute ischemic changes. Initial HS troponin level was found normal at <3 with subsequent level of <3. BNP level was found normal at 12.74. Covid-19, Influenza A/B were found negative. WBC found normal at 5.6. Initial chest x-ray revealed presence of a moderate sized pneumothorax involving the right lung which patient underwent right sided chest tube placement. Subsequent chest x-ray post chest tube placement revealed interval improvement of right pneumothorax. Repeat chest imaging (02/27/2024) revealed presence of a small right apical pneumothorax with chest tube in situ which Pulmonology services have been involved for management. While within the ED, patient was noted to have an episode of tachycardia which upon EKG analysis, there is presence of a narrow-complex tachycardia at 191 bpm with questionable presence of 2:1 atrial flutter which as per ED provider note, patient spontaneously converted back to sinus rhythm. Repeat EKG at the time post spontaneous conversion revealed sinus tachycardia at 105bpm. Initial potassium level found normal at 4.0 with a magnesium level of 2.0. TSH level was found to be 0.49. Current LDL is 145 with an A1C of 6.8. Cardiology services have now been involved for cardiac aspects of care. On tele floor, patient had episode of tachycarrhythmia and she was cardioverted for SVT Past medical history includes obesity, diabetes mellitus, asthma, GERD, hypertension, hyperlipidemia, pulmonary hypertension, old history of hysterectomy and left knee replacement. She does smoke cigarettes. She occasionally uses marijuana. She occasionally drinks alcohol Echocardiogram (08/2023) revealed Left ventricle: Left ventricle is normal size with normal systolic function. LVEF was 65 to 70%. There was no gross wall motion abnormality. Left atrium was normal size. Right-sided chambers were dilated. Aortic valve was trileaflet. There was no aortic insufficiency/stenosis. There was trivial mitral regurgitation. There was mild tricuspid regurgitation. Pulmonary valve was not well-visualized Right ventricular systolic pressure was assessed around 65 mmHg. IVC was dilated. There was no pericardial effusion. venous duplex was negative for lower ext dvt TSH: 0.48, T4 (free): 1.02 (wnl), T3 (free): 1.76 (mildly low) (findings are in favor of subclinical hyperthyroidism) Echo reported: Left ventricle: Left ventricle was normal sized with normal systolic function. LVEF was 65-70%. There was no gross wall motion abnormality. Right ventricle was normal size with normal systolic function. Both atria were normal size. Aortic valve: Aortic valve was trileaflet. There was no aortic insufficiency/stenosis. There was trivial tricuspid and mitral regurgitation. Pulmonic valve was not well visualized. Right ventricular systolic pressure was assessed around 40 mm Hg. There was no pericardial effusion. IVC was normal size with normal respiratory variation. Assessment: Acute hypoxic respiratory failure, secondary to right-sided pneumothorax Right-sided pneumothorax, status post chest tube placement Narrow-complex tachycardia, SVT s/p cardioversion for SVT Abnormal D-Dimer (0.59), likely refractory to pneumothorax Abnormal TSH level (0.49), rule out thyroid dysfunction: subclinical hyperthyroidism Pulmonary hypertension Nicotine dependence Diabetes mellitus II Asthma, history of COPD, history of Hyperlipidemia Hypertension Obesity s/p chest tube placement and its removal Plan: Manage on tele As patient initially presented and was noted to have an episode of narrow complex tachycardia, cardiology services were involved for its evaluation. Upon analysis of the EKG during the event, tracing reveals a narrow complex tachycardia at 191 bpm in favor of SVT spontaneously as she converted without intervention. Repeated SVT which required cardioversion. On Metoprolol for now (dose increased). Patient will need to undergo long-term event monitoring on an outpatient basis to further observe for such occult arrhythmias upon discharge. During the interim, recommendation is to proceed with close rate and rhythm surveillance, sustain potassium levels greater than 4.0, sustain magnesium levels greater than 2.0. Will proceed to follow from a cardiac perspective. Further recommendations as per clinical course and the above ordered findings. Metoprolol Tartrate 50mg twice daily for now , if needed you can further taper up Consider further event monitoring (can be arranged outpatient) Follow up renal function/electrolytes and correct abnormalities Management of underlying pneumothorax as per Pulmonology Counseled on importance of tobacco cessation Proceed with close rate and rhythm surveillance Proceed with close hemodynamic surveillance Proceed with optimized blood pressure control Transfuse to sustain HGB level above 7.0 Sustain Magnesium level greater than 2.0 Sustain Potassium level greater than 4.0 Follow up renal function and electrolytes Management in telemetry Follow up Pulmonology recommendations Will proceed to follow from a cardiac perspective Further recommendations per clinical progression All available diagnostic labs, EKG's, and images were personally reviewed Plan of care discussed with and agreed upon by patient / primary RN Prognosis: Guarded Thank you for allowing me to participate in the care of this patient. Further recommendations based on patients clinical course and progression, primary attending, and other consultants. Will continue to follow with primary attending. If you have any questions or concerns, please do not hesitate to contact me. A total of 55 minutes was spent reviewing the patient record, examining the patient, making a diagnostic and therapeutic plan, discussing this plan with medical personnel, following up on diagnostic studies and following the patient for clinical stability excluding any and all procedures. At least 50% of this time was spent in direct, [id number] contact. 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 3) Continue plan of care Expected Outcomes/Goals: 1) appetite and labs to improve 2) f/u in 3-5 days Plan discussed with: Patient, Other (nurse) RODNEY GRISSOM MD Mar 07, 2024 07:39
[2024-03-07] MEDS ORDERED: NIFE1TAB31 PO (10:50)
[2024-03-07] MEDS ORDERED: DOXY100C79 PO (10:50)
[2024-03-07] MEDS ORDERED: METH4PAK PO (10:50)
[2024-03-07] MEDS ORDERED: METO-158 PO (10:50)
[2024-03-07] MEDS ORDERED: ALBU108A5 IN (10:50)
--- NOTE | 2024-03-07 10:52 | DVHDS2 ---
Discharge Summary Date of Admission Feb 26, 2024 at 17:08 Date of Discharge: Mar 07, 2024 Labs/Diagnostic Data: Laboratory Results Test 03/06/24 12:01 03/03/24 06:09 02/29/24 12:25 02/28/24 23:05 White Blood Count 12.1 10^3/uL (4.4-10.8) Red Blood Count 3.71 10^6/uL (4.0-5.20) Hemoglobin 11.1 g/dL (12.2-16.2) Hematocrit 33.5 % (36.0-46.0) Mean Corpuscular Volume 90.3 fL (80.0-100.0) Mean Corpuscular Hemoglobin 30.0 pg (28.0-32.0) Mean Corpuscular Hemoglobin Concent 33.2 g/dL (32.0-36.0) Red Cell Distribution Width 15.1 % (11.8-14.3) Platelet Count 328 10^3/uL (140-450) Mean Platelet Volume 8.8 fL (6.9-10.8) Neutrophils (%) (Auto) 88.7 % (37.0-80.0) Lymphocytes (%) (Auto) 6.2 % (10.0-50.0) Monocytes (%) (Auto) 3.8 % (0.0-12.0) Eosinophils (%) (Auto) 0.1 % (0.0-7.0) Basophils (%) (Auto) 1.2 % (0.0-2.0) Neutrophils # (Auto) 10.7 10 ^3/uL (1.6-8.6) Lymphocytes # (Auto) 0.7 10 ^3/uL (0.4-5.4) Monocytes # (Auto) 0.5 10 ^3/uL (0-1.3) Eosinophils # (Auto) 0 10 ^3/uL (0-0.8) Basophils # (Auto) 0.1 10 ^3/uL (0-0.2) Nucleated Red Blood Cells 0.1 % Sodium Level 138 mmol/L (136-145) Potassium Level 4.0 mmol/L (3.5-5.1) Chloride Level 101 mmol/L (98-107) Carbon Dioxide Level 33 mmol/L (20-31) Anion Gap 4 (5-15) Blood Urea Nitrogen 19 mg/dL (9-23) Creatinine 0.65 mg/dL (0.550-1.02) Glomerular Filtration Rate Calc 94 mL/min (>90) BUN/Creatinine Ratio 29.2 (10.0-20.0) Serum Glucose 167 mg/dL (74-106) Calcium Level 9.7 mg/dL (8.7-10.4) POC Glucose 147 mg/dl (70-106) Lactic Acid Level 2.0 mmol/L (0.4-2.0) C-Reactive Protein High Sensitivity 1.21 mg/dL (<1.0) Carcinoembryonic Antigen 1.82 ng/mL (<=5.0) CA 19-9 Antigen 30 U/mL (0-35) CA 125 Antigen 5.7 U/mL (0.0-38.1) Total Bilirubin 0.7 mg/dL (0.2-1.0) Aspartate Amino Transferase (AST) 21 U/L (13-40) Alanine Aminotransferase (ALT) 16 U/L (7-40) Alkaline Phosphatase 94 U/L (46-116) Total Protein 7.1 g/dL (5.7-8.2) Albumin 4.5 g/dL (3.2-4.8) Test 02/27/24 22:11 02/27/24 08:50 02/26/24 10:09 02/26/24 09:19 Free Thyroxine (T4) Calculated 1.02 ng/dL (0.89-1.76) Free Triiodothyronine (T3) pg/mL 1.76 pg/mL (2.3-4.2) Hemoglobin A1c 6.8 % A1C (<5.7) Magnesium Level 2.0 mg/dL (1.6-2.6) Triglycerides Level 89 mg/dL (< 150) Cholesterol Level 211 mg/dL (< 200) LDL Cholesterol 145 mg/dL (< 100) HDL Cholesterol 52 mg/dL (40-59) Thyroid Stimulating Hormone (TSH) 0.49 uIU/mL (0.55-4.78) Urine Color Light-yellow (Yellow) Urine Clarity Clear (Clear) Urine pH 6.5 (5.0-9.0) Urine Specific [place] 1.007 (1.001-1.035) Urine Protein Negative (Negative) Urine Ketones Negative (Negative) Urine Blood Negative /uL (Negative) Urine Nitrite Negative (Negative) Urine Bilirubin Negative (Negative) Urine Urobilinogen Normal mg/dL (Negative) Urine Leukocyte Esterase Negative /uL (Negative) Urine RBC 1 /hpf (0 - 4) Urine WBC <1 /hpf (0 - 5) Urine Squamous Epithelial Cells Few /hpf (<5) Urine Bacteria Few /hpf (None Seen) Urine Glucose Normal mg/dL (Normal) Troponin I High Sensitivity 3 ng/L (</=34) Test 02/26/24 07:36 02/26/24 02:30 Prothrombin Time 10.6 sec (9.3-11.8) Prothrombin Time INR 1.00 (0.9-1.15) Activated Partial Thromboplast Time 27.3 SEC (24.5-34.5) D-Dimer, Quantitative 0.53 mg/L FEU (0.0-0.49) B-Type Natriuretic Peptide 12.74 pg/mL (0-100) Influenza Type A Antigen Negative (Negative) Influenza Type B Antigen Negative (Negative) Other Laboratory Tests 03/06/24 12:01 Brief Hx & Hospital Course: 69 yo female patient with hx of COPD, HTN, DM, HLD, GERD, and asthma c/o SOB and cough x 2 days. Patient sts that her SOB worsens when in supine. Patient reports using 1.5L of O2 at home. While in the emergency department the patient was evaluated by the provider, As per provider: Labs, vital signs, and imagining monitored. Patient was admitted on 02/26/24 for shortness of breath. Patient was found to have a right pneumothorax, chest tube was placed in the emergency room. Patient had several episodes of SVT. Patient was able to bare-down and SVT resolved. Patient was admitted for further cardiac monitoring and cardiac consult. Patient also had pulmonary consult for chest tube management. Patient was found to have pneumonia. Patient had a code assist on 02/29/24 due to SVT, heart rate over 200. Patient developed severe tachycardia with shortness of breath. Patient was cardioverted and on 03/01/24 pig tail was inserted by pulmonary.Patient was started on a beta-iam for SVT. After cardioversion heart rate remained controlled. Patient was given antibiotics and breathing treatment. Patient also had complaints of constipation as well as insomnia. Patient was given cathartics and she had several large bowel movements. Estimated EF is 65-70%. Patient chest tube was successfully removed. Patient was cleared for discharge by cardiology as well as pulmonary. Patient was given a prescription for antibiotics to complete antibiotics course as well as steroids and PRN inhaler. Patient will continue her beta iam. Her blood pressure medications were adjusted. She will follow up with her PCP in one week. The patient received proper medical treatment and medications. Vital signs, Imaging and Laboratory Work was monitored. All consults recommendations were followed as provided. There were no complaints or new complaints upon discharge, all questions and concerns were answered. Patient was advised to return to the ER or call 911 if any headaches, dizziness, shortness of breath, chest pain, bleeding, fevers, or worsening of medical condition. Patient/Family was counseled about treatment plan, medications, possible side effects, patientverbalized understanding. All questions were answered to the best of my ability. The patient symptoms improved and they are okay to be DC. Condition at Discharge: Good Final Diagnosis/Problems List pneumothorax- s/p removal of chest tube PNA- complete abx course with doxycyxline and medrol dose izabel, albuterol as needed for SOB. SVT- now on metoprolol Secondary Diagnosis: 1. SOB r/t pneumothorax 2. S/p chest tube placement 3. GERD 4. HLD 5. COPD 6. SVT 7. Elevated D dimer 8. Pulmonary HTN Discharge Disposition: Home Discharge Instruct/Medications Diet: Cardiac 2g Na,low cholest Activity: No Restrictions, As Tolerated Follow Up/Referral: pcp 1 week Medications: as prescribed Discharge Statement: "Patient was advised to return to the ER or call 911 if any headaches, dizziness, shortness of breath, chest pain, abdominal pain, bleeding, fevers, or worsening of medical condition. Patient was counseled about treatment plan, medications, possible side effects, patientverbalized understanding. All questions were answered to the best of my ability. This discharge took greater then 30 minutes in planning, reviewing documentation, counseling the patient, and discussing with other team members." ASSESSMENT ASSESSMENT Assessment pneumothorax- s/p removal of chest tube PNA- complete abx course with doxycyxline and medrol dose izabel, albuterol as needed for SOB. SVT- now on metoprolol DALJIT JIM NP Mar 07, 2024 10:52
[2024-03-07] MEDS ORDERED: OXY10CRT PO (12:18)
--- NOTE | 2024-03-07 22:57 | DVHPN2 ---
Progress Note - Dictate Date Seen: Mar 07, 2024 Medical Necessity Reason Pt with a Central, PICC or Fol: Yes The following are medically ne: Marrufo Catheter Reason for marrufo catheter: Strict I&O Subjective Patient seen and examined at bedside. Breathing comfortably on room air Overnight events reviewed. vital signs Vital Sign Date Time Temp Pulse Resp B/P (MAP) Pulse Ox O2 Delivery O2 Flow Rate FiO2 03/07/24 21:00 97.5 71 18 138/80 (99) 100 97.5 03/07/24 18:48 Nasal Cannula 3.0 03/07/24 18:48 32 Total Intake and Output 03/06/24 03/06/24 03/07/24 15:00 23:00 07:00 Intake Total 560 ml 750 ml Output Total 3 ml 400 ml Balance 557 ml 350 ml medications Current Medications Medications Dose Ordered Sig/Kourtney Route Start Time Stop Time Status Last Admin Dose Admin Ondansetron HCl 4 mg Q4HP PRN IV 02/26/24 17:15 03/07/24 15:12 4 MG Acetaminophen 650 mg Q6HP PRN PO 02/26/24 17:15 03/02/24 10:16 650 MG Nitroglycerin 0.4 mg Q5MINP PRN SL 02/26/24 17:15 Ipratropium [place] 0.5 mg Q6HR NEB 02/27/24 12:45 03/07/24 18:49 0.5 MG Methylprednisolone Sodium Succinate 40 mg Q8HR IV 02/27/24 14:00 03/07/24 15:32 40 MG Atorvastatin Calcium 20 mg HS PO 02/28/24 22:00 03/06/24 21:16 20 MG Furosemide 20 mg DAILY PO 02/28/24 10:00 03/07/24 09:47 20 MG Gabapentin 300 mg TID PO 02/27/24 14:00 03/07/24 15:12 300 MG Pantoprazole Sodium 40 mg DAILY@0600 PO 02/28/24 06:00 03/07/24 05:36 40 MG Diagnostic Test (Pha) 1 strip ACHS 02/28/24 11:30 03/07/24 17:00 1 STRIP Insulin Human Regular HS SC 02/28/24 22:00 03/05/24 22:04 4 UNITS Insulin Human Regular AC SC 02/28/24 11:30 03/07/24 19:09 6 UNITS Dextrose 50 ml UD PRN IV 02/28/24 10:30 Enoxaparin Sodium 40 mg DAILY SC 02/29/24 10:00 03/07/24 09:48 40 MG Docusate Sodium 100 mg BID PO 02/28/24 22:00 03/07/24 09:48 100 MG Levalbuterol HCl 0.625 mg Q6HR NEB 02/29/24 06:00 03/07/24 18:49 0.625 MG Metoprolol Tartrate 50 mg BID PO 02/29/24 22:00 03/07/24 09:48 50 MG Doxycycline Monohydrate 100 mg Q12HR PO 02/29/24 22:00 Cancel Budesonide 0.5 mg BID NEB 02/29/24 22:00 03/07/24 11:26 0.5 MG Guaifenesin 200 mg Q6HP PRN PO 03/01/24 16:45 03/07/24 10:14 200 MG Nifedipine 30 mg DAILY PO 03/02/24 11:30 03/06/24 08:30 30 MG Alprazolam 1 mg Q8HPRN PRN PO 03/02/24 11:45 03/07/24 19:05 1 MG Zolpidem Tartrate 5 mg HSPRN PRN PO 03/02/24 11:45 03/06/24 21:18 5 MG Lidocaine 1 patch DAILY TOP 03/03/24 10:00 03/07/24 09:48 1 PATCH Azithromycin 500 mg DAILY PO 03/05/24 10:00 03/07/24 09:46 500 MG Morphine Sulfate 2 mg Q4HPRN PRN IV 03/06/24 22:30 03/07/24 15:17 2 MG objective Gen.: Patient lying in bed in no apparent distress. On room air. Head: Normocephalic, atraumatic. Eyes: EOMI/PERRLA. Ears: Normal hearing. Normal anatomy. Neck/trachea: Trachea midline, supple. Nose: Normal external anatomy. Mouth: Moist mucous membranes. Chest: Decreased air entry bilaterally. Wheezing. No rhonchi. Cardiovascular: Positive S1, positive S2. Regular rate and rhythm. Abdomen: Positive bowel sounds in all 4 quadrants. Soft, non-tender, non- distended. : Deferred. Rectal: Deferred. Skin: Warm, dry. Intact. Extremities: 2+ radial pulses bilaterally. No lower extremity edema. Neuro: Awake, alert, oriented x3. No gross motor or sensory deficits. Cranial nerves II through XII intact. Gait not assessed. laboratory and microbiology Laboratory Tests 03/06/24 12:01 Test 03/06/24 12:01 Range/Units Serum Glucose 167 H 74-106 mg/dL Assessment/Plan Impression: Acute hypoxic respiratory failure Right pneumothorax status post chest tube placement COPD Asthma Obesity with a BMI of 33.6 Atelectasis DM type II with hyperglycemia Elevated d-dimer Events: Breathing on room air No respiratory distress. Supplemental oxygen PRN Incentive spirometry Continue bronchodilators PRN Antitussive PRN Pain control Avoid oversedation Wound care Patient is stable from the pulmonary standpoint for discharge. PT - She ambulated with walker. Labs and imaging reviewed. Rest of plan as noted below. Plan: Supplemental oxygen PRN Keep o2 sat above 92% S/p removal of right chest tube Chest x-ray post procedure demonstrated no pneumothorax. IS for atelectasis Pain control Avoid oversedation Accu-Cheks, ISS Elevated D-dimer, likely reactive due to pneumothorax. DVT prophylaxis- Lovenox Prognosis: Poor given multiple comorbidities. Rest of plan per hospitalist and other consultants. Thank you Dr. Montesinos/LIA Carrington for allowing me to participate in this patient's care. Further recommendations will depend on patient's clinical course. Please do not hesitate to contact me if you have any questions or concerns. This medical document was created using an electronic medical record system with [employer] dictation system. Although this document has been carefully reviewed, there may still be some phonetic and typographical errors. These areas are purely typographical due to imperfections of the software programs, and do not reflect any compromise in the patient's medical care. 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 3) Continue plan of care Expected Outcomes/Goals: 1) appetite and labs to improve 2) f/u in 3-5 days Plan discussed with: Patient, Other (STEVE Mckinney) WADE PATEL MD Mar 07, 2024 22:57
== END 2024-03-07 21:50 | disposition home or self-care (01) | DRG 199 ==
LOC: ER 06:58 → TELE 17:08 → TELE-EAST 19:12 → DOU IN ICU 02-29 01:52 → TELE-CENTR 03-01 09:47
PROVIDERS: ADMIT Nurse Practitioner; ATTEND Nurse Practitioner
PROC: 0W9930Z Drainage of Right Pleural Cavity with Drainage Device, Percutaneous Approach (ICD-10-PCS; principal; 2024-02-26)
PROC: 5A2204Z Restoration of Cardiac Rhythm, Single (ICD-10-PCS; 2024-02-28)
PROC: 0W9930Z Drainage of Right Pleural Cavity with Drainage Device, Percutaneous Approach (ICD-10-PCS; 2024-02-29)
DX: J93.9 Pneumothorax, unspecified (principal); J15.69 Pneumonia due to other Gram-negative bacteria; J96.01 Acute respiratory failure with hypoxia; J15.9 Unspecified bacterial pneumonia; J44.1 Chronic obstructive pulmonary disease with (acute) exacerbation; J98.11 Atelectasis; I47.10 Supraventricular tachycardia, unspecified; T79.7XXA Traumatic subcutaneous emphysema, initial encounter; J44.0 Chronic obstructive pulmonary disease with (acute) lower respiratory infection; J93.83 Other pneumothorax; E11.65 Type 2 diabetes mellitus with hyperglycemia; E78.5 Hyperlipidemia, unspecified; E66.9 Obesity, unspecified; I10 Essential (primary) hypertension; I27.20 Pulmonary hypertension, unspecified; K21.9 Gastro-esophageal reflux disease without esophagitis; F17.210 Nicotine dependence, cigarettes, uncomplicated; Z96.652 Presence of left artificial knee joint; E05.90 Thyrotoxicosis, unspecified without thyrotoxic crisis or storm; G47.00 Insomnia, unspecified; K59.00 Constipation, unspecified; Z68.33 Body mass index [BMI] 33.0-33.9, adult; Z90.710 Acquired absence of both cervix and uterus; Z83.3 Family history of diabetes mellitus; Z82.49 Family history of ischemic heart disease and other diseases of the circulatory system; Z79.899 Other long term (current) drug therapy; Z83.1 Family history of other infectious and parasitic diseases
CPT/HCPCS: 31500; 32555; 36415; 71045; 71046; 71250; 80048; 80053; 80061; 81001; 82378; 82962; 83036; 83605; 83735; 83880; 84439; 84443; 84481; 84484; 85014; 85018; 85025; 85379; 85610; 85730; 86141; 86301; 86304; 86376; 87804; 93005; 93306; 93970; 94640; 97163; 99291; G0378; J0153; J1815; J1885; J2250; J2405